=== PATIENT | female | born 1995 | race Caucasian/White ===

== ENCOUNTER 2017-07-28 03:30 | Inpatient (IN) | payer MEDICARE, MEDICAID ==
[2017-07-28 04:15] LABS: #Basophils 0.1 thou/uL (0.0-0.2); #Eosinphils 0.1 thou/uL (0.0-0.7); #Lymphocytes 2.4 thou/uL (1.20-3.40); #Monocytes 0.6 thou/uL (0.11-0.59); #Neutrophils 10.9 thou/uL (1.40-6.50); %Basophils 0.4 % (0.0-1.0); %Eosinophils 0.7 % (0.0-10.0); %Lymphocytes 17.1 % (21.0-51.0); %Monocytes 4.1 % (0.0-10.0); %Neutrophils 77.8 % (42.0-75.0); Hemoglobin 13.4 g/dL (12.0-16.0); Mean Corpuscular HGB CONC 33.7 g/dL (32.0-36.0); Mean Corpuscular Hemoglobin 30.2 pg (27.0-31.0); Mean Corpuscular Volume 89.6 fl (81.0-99.0); Mean Platelet Volume 6.4 fL (7.4-10.4); Platelet Count 388 thou/uL (130-400); RBC Distribution Width 11.7 % (11.5-14.5); Red Blood Cell (RBC) Count 4.44 mill/uL (4.20-5.40)
[2017-07-28 04:28] LABS: BHCG - Serum Negative (NEGATIVE); Pregs Control Bar Appear? YES (CONTROL BAR)
[2017-07-28 04:29] LABS: Pregs Control Background? CLEAR/WHITE (CLR/WHITE)
[2017-07-28 04:32] LABS: ALT (SGPT) 32 U/L (8-55); AST (SGOT) 82 U/L (5-34); Alkaline Phosphatase 106 U/L (40-150); Anion Gap 17 mmol/L (10-20); BUN (Urea Nitrogen) 10 mg/dL (7.0-18.7); Bilirubin, Total 2.2 mg/dL (0.2-1.2); Calc. Creatinine Clearance 0 mL/min (70-130); Calcium 9.7 mg/dL (7.8-10.44); Carbon Dioxide 21 mmol/L (22-29); Chloride 103 mmol/L (98-107); Estimated GFR-MDRD Greater than 90; Globulin 3.1 g/dL (2.4-3.5); Glucose 180 mg/dL (70-105); Protein, Total 7.1 g/dL (6.0-8.3); Sodium 137 mmol/L (136-145)
[2017-07-28] MEDS ORDERED: Lorazepam 2 MG/ML VIAL ONE ×2 (04:44→05:06)
[2017-07-28 04:46] LABS: Bilirubin Small (Negative); Blood, Urine Negative (Negative); Clarity CLOUDY (Clear); Glucose, Urine (Dipstick) Negative (Negative); Leukocyte Moderate (Negative); Nitrite Positive (Negative); Protein, Urine (Dipstick) 30 mg/dL (Neg-Trace); Specific Gravity, Urine 1.034 (1.002-1.036); pH, Urine 6.5 (5.0-9.0)
[2017-07-28 04:49] LABS: Bacteria/HPF 4+ HPF (None Seen)
[2017-07-28 04:56] LABS: Amphetamine Detected (NotDetected); Cocaine Metabolite Screen Not Detected (NotDetected); Medtox Reader # READER 4; Methamphetamine Detected (NotDetected); Opiate Screen Not Detected (NotDetected); Phencyclidine (PCP) Not Detected (NotDetected); THC/Cannabinoid Screen Detected (NotDetected)
[2017-07-28 04:57] LABS: Barbiturates Screen Not Detected (NotDetected); Benzodiazepine Screen Not Detected (NotDetected); Medtox Control Line Valid? VALID (VALID); Methadone Not Detected (NotDetected); Oxycodone Screen Not Detected (NotDetected); Tricyclic Screen Not Detected (NotDetected)
[2017-07-28 05:02] LABS: Hyaline Casts/LPF 0-3 HYALINE CAST LPF (0-3 Hyaline); Other Casts/LPF None Seen LPF (0-3 Hyaline); Oval Fat Bodies/HPF None Seen HPF (None Seen); Renal Epithelial 0-3 HPF (0-3); Sperm/HPF None Seen HPF (None Seen); Transitional Epithelial 0-3 HPF (0-3); Trichomonas/HPF None Seen HPF (None Seen); Yeast-All Forms None Seen HPF (None Seen)
[2017-07-28] MEDS ORDERED: Meropenem 1 GM in Syringe 20 ML SLOW IVP SCH (05:45)
[2017-07-28] MEDS ORDERED: Ondansetron ODT 4 MG TAB SL PRN (07:34)
[2017-07-28] MEDS ORDERED: Ondansetron HCl/PF 4 MG/2 ML Vial IVP PRN ×2 (07:34→16:40)
[2017-07-28 07:57] VITALS: BMI 19.2
[2017-07-28 08:37] LABS: ALT (SGPT) 31 U/L (8-55); AST (SGOT) 82 U/L (5-34); Albumin 3.9 g/dL (3.5-5.0); Alkaline Phosphatase 102 U/L (40-150); Bilirubin, Direct 1.2 mg/dL (0.1-0.3); Bilirubin, Total 2.1 mg/dL (0.2-1.2); Protein, Total 7.2 g/dL (6.0-8.3)
[2017-07-28] MEDS: Sodium Chloride 0.9% 1,000 ML IV SCH ×3 (08:59→15:43)
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
--- NOTE | 2017-07-28 09:39 | ULT ---
PRELIMINARY REPORT/[facility]/EMERGENCY AFTER HOURS PROCEDURE: EXAM: US Abdomen Limited, Right Upper Quadrant CLINICAL HISTORY: The patient is a 22 years old, female; Abnormal findings; Abnormal lab test; Elevated liver enzymes TECHNIQUE: Real-time ultrasound of the right upper quadrant with image documentation. COMPARISON: CT Abdomen Pelvis W Con 2017-07-28 04:46 FINDINGS: LIVER: Obstructive cholangiopathy is present. The intrahepatic and extrahepatic ducts are distended w ith the common bile duct measuring up to 10 mm in diameter. GALLBLADDER: Cholelithiasis is present. The gallbladder wall is thickened measuring 5 mm and a small amount of pericholecystic fluid is present suggestive of acute cholecystitis. The gallbladder is dist ended. The Beasley's sign could not be assessed as the patient was somewhat uncooperative, possibly se condary to medication. COMMON BILE DUCT: The pancreas appears normal with the common bile duct in the head of the pancreas n oted to be dilated. PANCREAS: See above. RIGHT KIDNEY: The right kidney is within normal limits, measuring 9.6 x 4.0 x 4.8 cm in size. No ston es. No hydronephrosis. IMPRESSION: 1. Cholelithiasis with acute cholecystitis. 2. Obstructive cholangiopathy is present. The intrahepatic and extrahepatic ducts are distended with the common bile duct measuring up to 10 mm in diameter. I would recommend an MRCP to assess for poss ible choledocholithiasis as a cause of the obstruction. 3. The pancreas appears normal with the common bile duct in the head of the pancreas noted to be dila arianna. Thank you for allowing us to participate in the care of your patient. Dictated and Authenticated by: Barber Loera MD 07/28/2017 6:23 AM Central Time ([place] & [place]) FINAL REPORT EMERGENCY AFTER HOURS RIGHT UPPER QUADRANT ULTRASOUND: Date: 07/28/17 HISTORY: Right upper quadrant abdominal pain. Elevated liver function tests. IMPRESSION: 1. Gallbladder distention with cholelithiasis and gallbladder wall thickening measuring 0.5 cm with area of either pericholecystic fluid or gallbladder wall edema. Findings are worrisome for acute chol ecystitis. Clinical correlation is recommended. 2. Intra and extrahepatic biliary ductal dilatation. The extrahepatic common duct measures 10.0 mm i n diameter. Exact etiology for biliary ductal dilatation is unable to be determined based on this exa m. 3. A Beasley's sign was unable to be assessed as the patient was unable to verbally communicate disco mfort. Findings are in agreement with the preliminary report by Winter. POS: ISELA
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
[2017-07-28] MEDS ORDERED: Lorazepam 2 MG/ML VIAL SLOW IVP PRN ×2 (11:13→21:34)
[2017-07-28] MEDS ORDERED: FLU VACC QS2017-18 36 mo. & older 0.5 ML SYRINGE IM ONE (12:00)
--- NOTE | 2017-07-28 14:40 | PDOC.PN ---
- Subjective Encounter Start Date: 07/28/17 Encounter Start Time: 09:10 Pt seen for management of medical comorbidities including paraplegia. She is sound asleep, waking up to touch but sleeping off soon thereafter, not speaking. Unable to complete ROS. - Objective MAR Reviewed: Yes Vital Signs & Weight: Vital Signs (12 hours) Temp Pulse Resp BP Pulse Ox 07/28/17 11:30 98.4 F 77 16 120/84 98 07/28/17 08:00 97.4 F L 65 18 Result Diagrams: 07/28/17 04:03 07/28/17 04:03 Phys Exam - Physical Examination Constitutional: NAD HEENT: moist MMs Scleral icterus Respiratory: no wheezing, no rales, no rhonchi, clear to auscultation bilateral Cardiovascular: RRR RUQ tenderness paraplegia Deviation from normal: Unable to assess affect or orientation Dx/Plan (1) Paraplegia following spinal cord injury Code(s): G82.20 - PARAPLEGIA, UNSPECIFIED Status: Chronic (2) Depression Code(s): F32.9 - MAJOR DEPRESSIVE DISORDER, SINGLE EPISODE, UNSPECIFIED Status : Chronic (3) Anxiety Code(s): F41.9 - ANXIETY DISORDER, UNSPECIFIED Status: Chronic - Plan * . Continue home medications once clarified. Pt admitted for acute cholecystitis and abnormal LFTs. Await GI service input. Continue antibiotics, repeat LFTs. Review of Systems - Medications/Allergies Allergies/Adverse Reactions: Allergies Allergy/AdvReac Type Severity Reaction Status Date / Time Penicillins Allergy Unknown Verified 07/28/17 08:01 Medications: Current Medications Meropenem 1 gm/ Sterile Water 20 mls @ 240 mls/hr SLOW IVP 0600,1800 JOSH Stop: 07/28/17 18:01 Sodium Chloride (Normal Saline 0.9%) 1,000 mls @ 150 mls/hr IV .Q6H40M JOSH Stop: 07/28/17 18:00 Last Admin: 07/28/17 08:59 Dose: 1,000 mls Lorazepam (Ativan) 1 mg SLOW IVP Q4H PRN PRN Reason: Anxiety/Agitation Ondansetron HCl (Zofran) 4 mg IVP Q6H PRN PRN Reason: Nausea/Vomiting Stop: 07/28/17 18:00 Ondansetron HCl (Zofran Odt) 4 mg SL Q6H PRN PRN Reason: Nausea/Vomiting Stop: 07/28/17 18:00 Sodium Chloride (Flush - Normal Saline) 10 ml IVF PRN PRN PRN Reason: Saline Flush Stop: 07/28/17 18:00
[2017-07-28] MEDS ORDERED: ISOVUE-370 76%-LOCM 1 ML ONE (16:44)
[2017-07-28] MEDS ORDERED: Meropenem 1 GM in Sterile Water 20 ML SLOW IVP SCH (18:00)
[2017-07-28] MEDS: Meropenem 2 GM, Admixture Fee 1 EACH in Sodium Chloride 0.9% 100 ML IVPB SCH (18:27)
--- NOTE | 2017-07-28 21:43 | PDOC.PN ---
- Subjective Encounter Start Date: 07/28/17 Encounter Start Time: 12:00 Patient seen and examined. Somnolent. No overnight events - Objective MAR Reviewed: Yes Vital Signs & Weight: Vital Signs (12 hours) Temp Pulse Resp BP Pulse Ox 07/28/17 20:00 99.2 F 95 20 119/66 99 07/28/17 15:35 98.8 F 91 20 109/67 97 07/28/17 11:30 98.4 F 77 16 120/84 98 Weight Admit Weight 115 lb Weight 115 lb 6.4 oz I&O: 07/27/17 07/28/17 07/29/17 06:59 06:59 06:59 Intake Total 1800 Output Total 50 Balance 1750 Result Diagrams: 07/29/17 04:06 07/28/17 04:03 Phys Exam - Physical Examination Constitutional: NAD Respiratory: no wheezing, no rhonchi Cardiovascular: RRR, no rub Gastrointestinal: soft, non-tender, positive bowel sounds Musculoskeletal: no edema Neuro/Psych - Cannot assess due to current mentation. Dx/Plan - Plan DVT proph w/SCDs IMPRESSION: 1. Anxiety/Depression 2. Abn LFTS - mngt per Surg 3. Encephalopathy - baseline mentation unknown 4. Cannabis abuse 5. UTI PLAN: * Add low dose Ativan PRN for agitation * Will try to obtain more information from family when they arrive * AM labs * Await urine cultures Review of Systems - Review of Systems Other: Cannot obtain due to current cognition. Baseline mentation unknown. - Medications/Allergies Allergies/Adverse Reactions: Allergies Allergy/AdvReac Type Severity Reaction Status Date / Time Penicillins Allergy Unknown Verified 07/28/17 08:01 Medications: Current Medications Meropenem 2 gm/ Miscellaneous Medication 1 each/ Sodium Chloride 100 mls @ 0 mls/hr IVPB 0200,1000,1800 JOSH Last Admin: 07/28/17 18:27 Dose: 100 mls Lorazepam (Ativan) 0.5 mg SLOW IVP Q6H PRN PRN Reason: Anxiety/Agitation Ondansetron HCl (Zofran) 4 mg IVP Q6H PRN PRN Reason: Nausea/Vomiting Last Admin: 07/28/17 18:30 Dose: 4 mg Sodium Chloride (Flush - Normal Saline) 10 ml IVF Q12HR JOSH Sodium Chloride (Flush - Normal Saline) 10 ml IVF PRN PRN PRN Reason: Saline Flush
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
[2017-07-29] MEDS: Meropenem 2 GM, Admixture Fee 1 EACH in Sodium Chloride 0.9% 100 ML IVPB SCH ×2 (02:52→10:33)
[2017-07-29 04:48] LABS: #Eosinphils 0.1 thou/uL (0.0-0.7); #Monocytes 0.5 thou/uL (0.11-0.59); #Neutrophils 6.6 thou/uL (1.40-6.50); %Basophils 0.4 % (0.0-1.0); %Eosinophils 1.6 % (0.0-10.0); %Lymphocytes 21.7 % (21.0-51.0); %Monocytes 5.5 % (0.0-10.0); %Neutrophils 70.7 % (42.0-75.0); Hemoglobin 11.3 g/dL (12.0-16.0); Mean Corpuscular HGB CONC 33.5 g/dL (32.0-36.0); Mean Corpuscular Hemoglobin 30.7 pg (27.0-31.0); Mean Corpuscular Volume 91.6 fl (81.0-99.0); Mean Platelet Volume 6.5 fL (7.4-10.4); Platelet Count 266 thou/uL (130-400); Red Blood Cell (RBC) Count 3.68 mill/uL (4.20-5.40); White Blood Cell (WBC) Count 9.3 thou/uL (4.8-10.8)
[2017-07-29 05:10] LABS: ALT (SGPT) 70 U/L (8-55); AST (SGOT) 95 U/L (5-34); Albumin 2.8 g/dL (3.5-5.0); Alkaline Phosphatase 126 U/L (40-150); Bilirubin, Direct 2.3 mg/dL (0.1-0.3); Protein, Total 4.9 g/dL (6.0-8.3)
[2017-07-29] MEDS ORDERED: D5 1/2 NS w/20 mEq KCL 1,000 ML IV SCH (08:45)
[2017-07-29] MEDS ORDERED: Sodium Chloride 0.9% 1,000 ML IV SCH (08:45)
[2017-07-29] MEDS ORDERED: Dextrose 5 %-0.45 % NaCl 1,000 ML IV SCH (08:45)
--- NOTE | 2017-07-29 12:36 | PRG ---
DATE OF SERVICE: 07/29/2017 This is a followup consultation for medical issues. SUBJECTIVE: The patient is seen and examined at the bedside. She is not very cooperative and she wa nts to go home. She cries and she does not complaining of any pain. She behaves like she does not r eally wanted to talk to me. OBJECTIVE: VITAL SIGNS: Blood pressure is 120/66, pulse is 105, temperature is 99.0, respiratory rate is 14, an d O2 saturation is 96% on room air. HEENT: Eyes: Pupils approximately 3 mm and is responding to light properly. Sclerae are nonicteric . Oral mucosa is moist. NECK: Supple. LUNGS: Clear. HEART: S1, S2, tachycardic. No S3, no S4. ABDOMEN: Soft, nontender, bowel sounds are present, no organomegaly. EXTREMITIES: No clubbing, cyanosis or edema. There is an ulceration of the left calf approximately 2 inches x 1, which is just dressed by the Wound Care. NEUROLOGIC: She follows my commands on and off. She is paraplegic both lower extremities. LABORATORY DATA: Showed white count of 9.3, hemoglobin 11.3, hematocrit 33.8, and platelet count 266 . Total bilirubin 3.0, direct 2.3. AST 95, ALT 70, alkaline phosphatase 126, serum total protein 4. 9 and albumin 2.8. MICROBIOLOGY: None. IMPRESSION AND PLAN: 1. Abnormal LFTs with possible gallstones. The patient was seen by Dr. Aggarwal for GI evaluation. He recommend to do laparoscopic cholecystectomy and cholangiogram for possible gallstones and some form of cholecystitis, but this decision would be made by Dr. Hutchinson, her admitting general surgeon. 2. Depression/anxiety. 3. Encephalopathy. The patient behaves like she does not really wants to talk to me because of her depression and she wants to go home. She is positive for several illicit drugs, which could be the p art of the picture. This should be getting better with time. We will try to obtain more information about her mental baseline from the family and further recommendation from GI/GS regarding her GI iss ue. Continue current regimen and continue IV antibiotic for which looks like it is urinary tract inf ection, but her white count is back to normal and she seems to be responding.
[2017-07-29 16:57] VITALS: BP 107/65; TEMP 98.5
--- NOTE | 2017-07-29 17:16 | PRG ---
DATE OF SERVICE: 07/29/2017 SUBJECTIVE: This is a 22-year-old female brought to the ER by the family because of altere d mental status and also some vague abdominal pain. The patient has remained very sleepy and letharg ic over the last couple of days. She does off and on, but she is actually very restless and ag itated. The abdominal sonogram and CAT scan does show dilation of the CBD and intrahepatic bile duct s. Her liver function tests are elevated. Sonogram does show a gallstone. It appears that the pavel ent has possibly a common bile duct stone. Unfortunately, there is no family available to get a cons ent for ERCP and possible laparoscopic cholecystectomy. OBJECTIVE: GENERAL: She is very sleepy, barely arousable. VITAL SIGNS: Temperature 99 degrees Fahrenheit, pulse is 105, blood pressure is 120/66. CHEST: Lungs within normal limits. ABDOMEN: Soft, abdomen is nondistended, abdomen is nontender. LABORATORY DATA: From today shows WBC 9300, hemoglobin 11.3, hematocrit 33.8, MCV 91.6, platelet cou nt 266,000. Chemistry panel shows bilirubin gone up to 3. AST is 95, ALT 70, alkaline phosphatase 1 26. CLINICAL IMPRESSION: Cholecystitis, abnormal liver function tests, possibility of common bile duct s tone. We will try to contact the family to see if somebody can find the . If can be obta ined, I will plan for the ERCP tomorrow.
== END 2017-07-29 15:50 | disposition left against medical advice (07) | DRG 444 ==
LOC: ERS 03:30 → SURG B 07:15
PROVIDERS: ADMIT Surgery; ATTEND Surgery
DX: K80.00 Calculus of gallbladder with acute cholecystitis without obstruction (principal); G93.40 Encephalopathy, unspecified; G82.20 Paraplegia, unspecified; L97.229 Non-pressure chronic ulcer of left calf with unspecified severity; N39.0 Urinary tract infection, site not specified; F17.210 Nicotine dependence, cigarettes, uncomplicated; F19.10 Other psychoactive substance abuse, uncomplicated; T14.8XXS Other injury of unspecified body region, sequela; F41.9 Anxiety disorder, unspecified; F32.9 Major depressive disorder, single episode, unspecified; Z53.21 Procedure and treatment not carried out due to patient leaving prior to being seen by health care provider
CPT/HCPCS: 36415; 51701; 74177; 76705; 80053; 80076; 80306; 81003; 81015; 83690; 84703; 85025; 87077; 87086; 87186; 93005; 93010; 94760; 96361; 96374; 96375; A4216; A4353; J2060; J2185; J2405; J7050

== ENCOUNTER 2017-07-30 22:14 | Emergency (ER) | payer MEDICARE, MEDICAID | END 2017-07-30 23:26 | disposition left against medical advice (07) | LOC: ERS 22:14 | DX: Z53.21 Procedure and treatment not carried out due to patient leaving prior to being seen by health care provider (principal) ==

== ENCOUNTER 2017-08-17 14:58 | Inpatient (IN) | payer MEDICARE, MEDICAID ==
[2017-08-17] MEDS ORDERED: Ondansetron HCl/PF 4 MG/2 ML Vial ONE ×2 (15:27→15:28)
[2017-08-17 15:31] LABS: #Basophils 0.1 thou/uL (0.0-0.2); #Lymphocytes 1.7 thou/uL (1.20-3.40); #Monocytes 0.6 thou/uL (0.11-0.59); #Neutrophils 15.8 thou/uL (1.40-6.50); %Basophils 0.6 % (0.0-1.0); %Eosinophils 0.1 % (0.0-10.0); %Lymphocytes 9.1 % (21.0-51.0); %Monocytes 3.5 % (0.0-10.0); %Neutrophils 86.7 % (42.0-75.0); Hemoglobin 13.3 g/dL (12.0-16.0); Mean Corpuscular HGB CONC 32.5 g/dL (32.0-36.0); Mean Corpuscular Hemoglobin 29.7 pg (27.0-31.0); Mean Corpuscular Volume 91.4 fl (81.0-99.0); Mean Platelet Volume 5.8 fL (7.4-10.4); Platelet Count 478 thou/uL (130-400); RBC Distribution Width 11.9 % (11.5-14.5); Red Blood Cell (RBC) Count 4.47 mill/uL (4.20-5.40); White Blood Cell (WBC) Count 18.2 thou/uL (4.8-10.8)
[2017-08-17 15:58] LABS: Bilirubin Small (Negative); Blood, Urine Negative (Negative); Clarity CLOUDY (Clear); Glucose, Urine (Dipstick) Negative (Negative); Leukocyte Small (Negative); Nitrite Positive (Negative); Protein, Urine (Dipstick) 30 mg/dL (Neg-Trace); Specific Gravity, Urine 1.031 (1.002-1.036)
[2017-08-17 16:00] LABS: Bacteria/HPF 4+ HPF (None Seen); RBC/HPF 0-3 HPF (0-3)
[2017-08-17 16:02] LABS: Pathc Cast-AUWi Flag 3.11 (0-2.49)
[2017-08-17 16:02] LABS: ALT (SGPT) 17 U/L (8-55); AST (SGOT) 49 U/L (5-34); Albumin 3.6 g/dL (3.5-5.0); Alkaline Phosphatase 100 U/L (40-150); Anion Gap 13 mmol/L (10-20); BUN (Urea Nitrogen) 12 mg/dL (7.0-18.7); Bilirubin, Total 0.9 mg/dL (0.2-1.2); Calc. Creatinine Clearance 0 mL/min (70-130); Calcium 9.4 mg/dL (7.8-10.44); Carbon Dioxide 23 mmol/L (22-29); Chloride 108 mmol/L (98-107); Estimated GFR-MDRD Greater than 90; Globulin 3.6 g/dL (2.4-3.5); Glucose 154 mg/dL (70-105); Lipase 14 U/L (8-78); Potassium 4.1 mmol/L (3.5-5.1); Protein, Total 7.2 g/dL (6.0-8.3); Sodium 140 mmol/L (136-145)
[2017-08-17 16:05] LABS: Acetaminophen Less than 6.0 mcg/mL (10.0-30.0); Alcohol Less than 10 mg/dL (Less than 10); Salicylate Less than 8.0 mg/dL (15.0-30.0)
[2017-08-17] MEDS ORDERED: Lorazepam 2 MG/ML VIAL ONE (16:13)
[2017-08-17 16:14] LABS: Cocaine Metabolite Screen Not Detected (NotDetected); Medtox Reader # READER 1; Methamphetamine Detected (NotDetected); Opiate Screen Not Detected (NotDetected); Phencyclidine (PCP) Not Detected (NotDetected); THC/Cannabinoid Screen Not Detected (NotDetected)
[2017-08-17 16:15] LABS: Amphetamine Detected (NotDetected); Barbiturates Screen Not Detected (NotDetected); Benzodiazepine Screen Not Detected (NotDetected); Medtox Control Line Valid? VALID (VALID); Methadone Not Detected (NotDetected); Oxycodone Screen Not Detected (NotDetected); Tricyclic Screen Not Detected (NotDetected)
[2017-08-17 16:18] LABS: Hyaline Casts/LPF 0-3 HYALINE CAST LPF (0-3 Hyaline); Manual Microscopic Reviewed? No Path Casts Seen; Renal Epithelial None Seen HPF (0-3); Transitional Epithelial NONE SEEN HPF (0-3)
[2017-08-17] MEDS ORDERED: Meropenem 1 GM in Sterile Water 20 ML SLOW IVP SCH (16:45)
--- NOTE | 2017-08-17 16:59 | RAD ---
FRONTAL VIEW ABDOMEN 08/17/17 INDICATION: Pain. FINDINGS: There is limited evaluation as patient is rotated. There is paucity of bowel gas. Imaged lower lung z ones reveal no consolidation. Mild blunting of the costophrenic sulci present. Partially imaged spina l hardware. There is focal deformity involving the lower right thoracic spinal screw which could rela te to a fractured screw, incompletely assessed by the single view. There is also potential lucency ab out the inferior most right pedicle screw. IMPRESSION: 1. Paucity of bowel gas. There is a moderate degree of retained fecal material notably at the lo wer aspect of the colon. Correlate for evidence of constipation. 2. Abnormal spinal hardware as discussed above. Recommend dedicated views of the thoracic spine. POS: QUYNH
--- NOTE | 2017-08-17 17:46 | ULT ---
GALLBLADDER ULTRASOUND 08/17/17 INDICATION: Abdominal pain, nausea, vomiting. FINDINGS: No focal hepatic lesion. There is evidence of cholelithiasis. Gallbladder wall is borderline at 3 mm. Imaged common duct is prominent measuring 8 to 9 mm. There is increased echogenicity of the extrahep atic biliary ductal system approximating the region of the proximal pancreas. This does indicate chol edocholithiasis. Minimal degree of pericholecystic edema is suggested. Beasley's sign is reported as p ositive. IMPRESSION: 1. Cholelithiasis. 2. Evidence of choledocholithiasis and biliary obstruction. 3. Mild wall thickening and pericholecystic edema indicating acute cholecystitis in the correct clinical context. Recommend surgical consultation. POS: ISELA
--- NOTE | 2017-08-17 18:08 | PDOC.EVN ---
Event Note - Event Note Event Note: [id number] H&P DICTATED 1. bILATERAL LEG WOUNDS, CELLULITIS 2. sirs 3. UTI Plan: see orders
[2017-08-17] MEDS ORDERED: Ondansetron HCl/PF 4 MG/2 ML Vial IVP PRN (18:10)
[2017-08-17] MEDS ORDERED: HYDROcodone/Acetaminophen 5/325 mg Tablet PO PRN (18:10)
[2017-08-17] MEDS ORDERED: Acetaminophen 325 MG TAB PO PRN (18:10)
[2017-08-17] MEDS: Sodium Chloride 0.9% 1,000 ML IV SCH ×2 (21:42)
[2017-08-17] MEDS: Heparin 5,000 UNITS/ML VIAL SC SCH (21:44)
[2017-08-17] MEDS ORDERED: Meropenem 1 GM in Sodium Chloride 0.9% 100 ML IVPB SCH (22:00)
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
[2017-08-18] MEDS ORDERED: Meropenem 1 GM in Sterile Water 20 ML SLOW IVP SCH (02:00)
[2017-08-18] MEDS: Vancomycin HCl 1.5 GM in Sodium Chloride 0.9% 250 ML 300 ML IVPB SCH ×2 (04:56→18:04)
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
[2017-08-18] MEDS ORDERED: PHENYLEPHRINE-NS 100 MCG/ML 10 ML SYRINGE ONE (07:12)
[2017-08-18] MEDS: Meropenem 1 GM in Sterile Water 20 ML SLOW IVP SCH ×2 (09:34→21:59)
[2017-08-18] MEDS: Baclofen 10 MG TAB PO SCH (09:47)
[2017-08-18] MEDS: Heparin 5,000 UNITS/ML VIAL SC SCH ×3 (09:47→22:01)
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
--- NOTE | 2017-08-18 12:39 | PDOC.PN ---
- Subjective Encounter Start Date: 08/18/17 Encounter Start Time: 12:37 Subjective: Seen and examined-a little bit uncoperative and refusing treatment -: unfortunately cannot make her own decision due to her mental state -: and the fact she is under the influence of methamphetamine - Objective Vital Signs & Weight: Vital Signs (12 hours) Temp Pulse Resp BP BP Pulse Ox 08/18/17 11:53 99.5 F 82 16 116/59 L 93 L 08/18/17 08:45 98.6 F 57 L 16 95 08/18/17 08:43 98.6 F 57 L 16 108/68 95 08/18/17 04:49 99.3 F 58 L 18 126/72 99 Weight Admit Weight 111 lb 12.8 oz Weight 111 lb 12.8 oz I&O: 08/17/17 08/18/17 08/19/17 06:59 06:59 06:59 Intake Total 580 Output Total 150 Balance 430 Result Diagrams: 08/17/17 15:23 08/17/17 15:23 Phys Exam - Physical Examination Constitutional: NAD HEENT: PERRLA, moist MMs, sclera anicteric, TM's clear Neck: no nodes, no JVD, supple, full ROM Respiratory: no wheezing, no rales, no rhonchi Cardiovascular: RRR, no significant murmur, no rub Gastrointestinal: positive bowel sounds Musculoskeletal: no edema, pulses present Dx/Plan (1) Cholecystitis Code(s): K81.9 - CHOLECYSTITIS, UNSPECIFIED Status: Acute (2) UTI (lower urinary tract infection) Code(s): N39.0 - URINARY TRACT INFECTION, SITE NOT SPECIFIED Status: Acute (3) Anxiety Code(s): F41.9 - ANXIETY DISORDER, UNSPECIFIED Status: Chronic (4) Depression Code(s): F32.9 - MAJOR DEPRESSIVE DISORDER, SINGLE EPISODE, UNSPECIFIED Status : Chronic (5) Paraplegia following spinal cord injury Code(s): G82.20 - PARAPLEGIA, UNSPECIFIED Status: Chronic - Plan continue antibiotics, PT/OT, social worker clinical, DVT proph w/heparin Not sure if this pt is consentable for any kind of surgery-she doesnt want -: us to talk to her family -: Change IVF to Dextrose -saline -: Transfer to critical care for better sedation * .
[2017-08-18] MEDS: Sodium Chloride 0.9% 1,000 ML IV SCH (12:54)
[2017-08-18] MEDS: Dextrose 5 % And 0.9 % NaCl 1,000 ML IV SCH ×2 (12:59→13:29)
[2017-08-18] MEDS ORDERED: Ziprasidone 20 MG VIAL IM PRN ×2 (13:06→13:43)
[2017-08-18] MEDS ORDERED: Sterile Water 10 ML ONE (13:14)
[2017-08-18] MEDS ORDERED: Sterile Water 10 ML VIAL FS PRN (13:49)
[2017-08-18] MEDS ORDERED: Midazolam HCl 2 mg/2 ml Vial ONE (14:35)
[2017-08-18] MEDS ORDERED: Propofol 1,000 MG/100 ML VIAL IV ONE (14:56)
[2017-08-18] MEDS ORDERED: Lacri-Lube Opth Oint 3.5 GM TUBE EA EYE PRN (15:11)
[2017-08-18] MEDS ORDERED: Sedation Protocol FS ONE (15:11)
[2017-08-18] MEDS ORDERED: Midazolam HCl 2 mg/2 ml Vial SLOW IVP SCH (15:15)
[2017-08-18] MEDS ORDERED: DISCONTINUE PREVIOUS NARCOTIC PAIN MEDICATIONS AND BENZODIAZEPINES FS SCH (15:30)
[2017-08-18] MEDS ORDERED: Morphine 2 MG/ML SYRINGE SLOW IVP PRN (15:30)
[2017-08-18] MEDS ORDERED: fentaNYL Citrate/PF 2,000 MCG in Sodium Chloride 0.9% 60 ML IV SCH (15:30)
--- NOTE | 2017-08-18 15:51 | RAD ---
PORTABLE AP CHEST XRAY: DATE: 08/18/17. HISTORY: Nausea and vomiting. COMPARISON: 01/25/17. FINDINGS: Endotracheal tube is noted in place with the tip overlying the T4 vertebral body and above the level of the prema. The patient is rotated to the right, but the cardiac silhouette and pulmonary vascula ture are within normal limits. The lungs are clear. Postsurgical changes related to posterior fusio n of the thoracolumbar junction are seen but incompletely imaged. Visualized postsurgical changes ar e unchanged compared to the prior exam. IMPRESSION: 1. Endotracheal tube noted in place which is above the level of the prema. 2. No acute cardiopulmonary process. POS: [facility]
[2017-08-18 15:55] LABS: Actual Bicarbonate (HCO3a) 23.3 mEq/L (22-26); Base Excess (BEa) 0.9 mEq/L (0 (+/-) 2.5); CO2 Tension 29.4 mmHg (35.0-45.0); Hematocrit-ABG 30.6 % (36.0-47.0); O2 Tension (PaO2) 119.2 mmHg (80.0-100.0); pH, Arterial 7.52 (7.35-7.45)
[2017-08-18 15:56] LABS: Calcium, Ionized 1.2 mmol/L (1.12-1.30); Hemoglobin (Hb) 10.2 g/dL (12.0-16.0); Puncture Site RRA
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
[2017-08-18] MEDS ORDERED: Iothalamate Meglumine 60% 50 ML VIAL FS ONE ×2 (16:39→18:18)
[2017-08-18] MEDS ORDERED: Bupivacaine/Epinephrine 0.25% 30 ML VIAL ONE (16:39)
[2017-08-18 16:50] LABS: #Basophils 0.1 thou/uL (0.0-0.2); #Eosinphils 0.1 thou/uL (0.0-0.7); #Lymphocytes 2.5 thou/uL (1.20-3.40); #Monocytes 0.5 thou/uL (0.11-0.59); %Basophils 0.9 % (0.0-1.0); %Eosinophils 1.4 % (0.0-10.0); %Monocytes 6.6 % (0.0-10.0); %Neutrophils 61.2 % (42.0-75.0); Mean Corpuscular HGB CONC 32.2 g/dL (32.0-36.0); Mean Corpuscular Hemoglobin 30.1 pg (27.0-31.0); Mean Corpuscular Volume 93.4 fl (81.0-99.0); Mean Platelet Volume 5.8 fL (7.4-10.4); Platelet Count 416 thou/uL (130-400); Red Blood Cell (RBC) Count 3.98 mill/uL (4.20-5.40); White Blood Cell (WBC) Count 8.2 thou/uL (4.8-10.8)
[2017-08-18 17:13] LABS: ALT (SGPT) 16 U/L (8-55); AST (SGOT) 22 U/L (5-34); Albumin 3.3 g/dL (3.5-5.0); Alkaline Phosphatase 90 U/L (40-150); Anion Gap 13 mmol/L (10-20); BUN (Urea Nitrogen) 5 mg/dL (7.0-18.7); Bilirubin, Total 0.9 mg/dL (0.2-1.2); Calc. Creatinine Clearance 120 mL/min (70-130); Calcium 9.1 mg/dL (7.8-10.44); Carbon Dioxide 19 mmol/L (22-29); Chloride 109 mmol/L (98-107); Estimated GFR-MDRD Greater than 90; Globulin 3.2 g/dL (2.4-3.5); Glucose 109 mg/dL (70-105); Lipase 15 U/L (8-78); Potassium 3.1 mmol/L (3.5-5.1); Protein, Total 6.5 g/dL (6.0-8.3); Sodium 138 mmol/L (136-145)
[2017-08-18] MEDS ORDERED: Midazolam HCl 5 mg/5 ml Vial ONE (17:19)
[2017-08-18] MEDS ORDERED: Levofloxacin 500 mg/D5W 100 ml Premix Bag ONE (17:51)
--- NOTE | 2017-08-18 20:27 | RAD ---
ERCP 08/18/17 HISTORY: Choledocholithiasis and intrahepatic and extrahepatic biliary ductal dilatation noted on intraoperati ve cholangiogram. FINDINGS/IMPRESSION: Three fluoroscopic images from ERCP are submitted for interpretation. Freezer Unloader image demonstrates residu al contrast within the common duct with a small amount of contrast within the small bowel. Subsequent images demonstrate guide wire in place within the common duct and the intrahepatic duct with final i mage demonstrating a balloon catheter within the most proximal common duct. Additional images with fr ee spill of contrast in duodenum are not provided with this exam. Surgical clips overlie the right up per quadrant. Correlation with intraoperative findings is recommended. POS: [facility]
--- NOTE | 2017-08-18 20:40 | RAD ---
INTRAOPERATIVE CHOLANGIOGRAM 08/18/17 HISTORY: Cholelithiasis and choledocholithiasis. FINDINGS: Single intraoperative fluoroscopic images from an intraoperative cholangiogram is submitted for inter pretation. Surgical instruments overlie the right upper quadrant. The cystic duct is cannulated. Ther e is intra and extrahepatic biliary ductal dilatation on the provided image. There is a filling defec t within the distal common duct which likely is related to a calculus within the common duct. No imag es demonstrate free spill of contrast into the duodenum are provided. There are posterior rods and pe dicular screws transfixing the thoracic spine. IMPRESSION: Intra and extrahepatic biliary ductal dilatation with filling defect in the distal common duct probab ly related to choledocholithiasis. Correlation with intraoperative findings is recommended. POS: [facility]
--- NOTE | 2017-08-18 21:21 | OP ---
PREOPERATIVE DIAGNOSES: Choledocholithiasis, possible cholangitis, cholecystectomy today with positi ve IOC. POSTOPERATIVE DIAGNOSIS: Choledocholithiasis removed. PROCEDURE PERFORMED: ERCP with sphincterotomy, removal of common bile duct stones. ANESTHESIA: General endotracheal anesthesia. Patient is already on antibiotics before being brought to the OR. PROCEDURE IN DETAIL: After the patient's family was informed of the risks, benefits and possible com plications of cholecystectomy, ERCP, consents were signed for both procedures. The patient was unabl e to sign consent as she has a history of psychiatric disorder, psychotic and sedated in the ICU. It is unclear how much of this was from her psychiatric disorder or drug use as she came in with positi ve methamphetamine screen. In the event, she has been intubated prior to going to the operating room for laparoscopic cholecystectomy in the ICU. RECOMMENDATIONS: 1. Wean to extubate as tolerated in the morning or whenever Pulmonology is ready. 2. Continue antibiotics for 24-48 hours. 3. Repeat labs in the morning. PROCEDURE IN DETAIL: After the patient was informed of the risks, benefits, possible complications o f endoscopy including perforation, bleeding, reactions to medication and aspiration, informed consent was signed by the family. The patient having undergone laparoscopic cholecystectomy with positive I OC and was transferred to the endoscopy suite. She was placed in the fluoroscopy table in prone posi tion. A side-viewing duodenoscope was placed through the bite block into the esophagus, stomach, sec ond and third portion of duodenum and the ampulla was brought into view. No bile was noted be emanat ing from the ampulla. Free cannulation was obtained. A guidewire was advanced up in the biliary vicky e. This was then used to guide for sphincterotomy. Once the sphincterotomy was completed, exchange was made for a 15 mm balloon, the duct was swept with multiple stones being removed. At the end of t his, occlusion cholangiogram was performed, which showed no further filling defects and after the bal loon was pulled through the ampulla with no stones, there was spontaneous drainage of contrast, both endoscopically and radiographically. The scope was removed. The patient was brought back to the ICU in stable condition.
[2017-08-18] MEDS: Famotidine/PF 20 mg/2ml Vial SLOW IVP SCH (21:59)
[2017-08-18] MEDS: Propofol 1,000 MG/100 ML VIAL IV PRN (22:00)
[2017-08-18] MEDS: Lorazepam 2 MG/ML VIAL SLOW IVP PRN (23:32)
--- NOTE | 2017-08-19 00:19 | OP ---
DATE OF PROCEDURE: 08/18/2017 SERVICE: Pulmonary Medicine. PROCEDURE PERFORMED: Emergent endotracheal intubation. CONSENT: Procedure was performed emergently secondary to clinical condition and respiratory failure. STAFF PHYSICIAN: Alex Urbina M.D. MEDICATIONS USED: 1. Versed 2 mg IV push. 2. Etomidate 20 mg IV push. PREOPERATIVE DIAGNOSES: 1. Acute hypoxic respiratory failure. 2. Metabolic encephalopathy. POSTPROCEDURE DIAGNOSES: 1. Acute hypoxic respiratory failure. 2. Metabolic encephalopathy. DESCRIPTION OF PROCEDURE: Vital sign monitoring was accomplished by noninvasive hemodynamic monitori ng, pulse oximetry, and telemetry. In the supine position, the patient was preoxygenated with bag valve mask ventilation and maintain wi th saturations of 100%. Following induction of anesthesia, a GlideScope was introduced through the m outh offering clear identification of the posterior oropharynx and laryngeal structures with a grade I view. A 7.5 [place] endotracheal tube was visualized passing through the vocal cords. Placement wa s confirmed by condensation in the endotracheal tube, colorimetric capnography, and bi-axillary chest auscultation. Endotracheal tube was secured at 23 cm, measured at the teeth. The patient was place d on mechanical ventilation with good return of volumes. Post-procedure x-ray demonstrated good loca tion for the endotracheal tube. ESTIMATED BLOOD LOSS: None. COMPLICATIONS: None.
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
[2017-08-19] MEDS: Dextrose 5 % And 0.9 % NaCl 1,000 ML IV SCH ×2 (02:49→16:56)
[2017-08-19] MEDS: Meropenem 1 GM in Sterile Water 20 ML SLOW IVP SCH ×3 (02:49→17:46)
[2017-08-19 04:29] LABS: Band 5 % (5-11); Eosinophils 1 % (0-10); Hemoglobin 10.8 g/dL (12.0-16.0); Lymphocytes 17 % (21-51); MDiff Complete? YES; Mean Corpuscular HGB CONC 33.4 g/dL (32.0-36.0); Mean Corpuscular Hemoglobin 30.1 pg (27.0-31.0); Mean Corpuscular Volume 90.4 fl (81.0-99.0); Mean Platelet Volume 5.8 fL (7.4-10.4); Monocytes 8 % (0-10); Neutrophil 69 % (42-75); PLT Morphology Comment Appears Adequate; Platelet Count 345 thou/uL (130-400); RBC Distribution Width 11.8 % (11.5-14.5); Red Blood Cell (RBC) Count 3.59 mill/uL (4.20-5.40); White Blood Cell (WBC) Count 7.9 thou/uL (4.8-10.8)
[2017-08-19 04:30] LABS: ALT (SGPT) 35 U/L (8-55); AST (SGOT) 85 U/L (5-34); Albumin 2.8 g/dL (3.5-5.0); Alkaline Phosphatase 100 U/L (40-150); Anion Gap 7 mmol/L (10-20); BUN (Urea Nitrogen) Less than 4 mg/dL (7.0-18.7); Bilirubin, Total 0.6 mg/dL (0.2-1.2); Calc. Creatinine Clearance 145 mL/min (70-130); Calcium 8.1 mg/dL (7.8-10.44); Carbon Dioxide 26 mmol/L (22-29); Chloride 111 mmol/L (98-107); Estimated GFR-MDRD Greater than 90; Globulin 2.4 g/dL (2.4-3.5); Glucose 120 mg/dL (70-105); Lipase 59 U/L (8-78); Protein, Total 5.2 g/dL (6.0-8.3); Sodium 141 mmol/L (136-145)
--- NOTE | 2017-08-19 04:58 | PDOC.OP ---
Operative Note - Operative Note Operative Note: PROCEDURE: Laparoscopic cholecystectomy with intraoperative cholangiogram SURGEON: Nina Garcia M.D. DATE OF PROCEDURE: 08/18/2017 PREOPERATIVE DIAGNOSIS: Cholelithiasis and cholecystitis, possible choledocholithiasis: POSTOPERATIVE DIAGNOSIS: Cholelithiasis and cholecystitis, choledocholithiasis HISTORY: Patient is a 22-year-old woman with previous admission for gallstone pancreatitis with left AMA at that time. She was readmitted for intractable abdominal pain and leukocytosis. Ultrasound revealed a stone in her common bile duct although her LFTs were not markedly elevated at the time of her admission. She was not competent to give consent due to underlying mental illness and became increasingly agitated requiring intubation and sedation. Her family was able to be contacted and give informed consent for laparoscopic cholecystectomy with intraoperative cholangiogram, with ERCP to follow if the cholangiogram was abnormal. FINDINGS: Chronically distended white walled gallbladder consistent with chronic cholecystitis. Enlarged cystic duct closed with Endoloop and clips. Obstruction of dilated common bile duct with a meniscus sign. PROCEDURE IN DETAIL: After informed consent was obtained and appropriate preoperative antibiotics were administered, the patient was taken to the operating room and placed in the supine position and general endotracheal anesthesia was administered. The stomach was decompressed with an OG tube and the abdomen was prepped and draped in standard sterile fashion. Local anesthesia was infused to the skin and subcutaneous tissues at the umbilical level. A transverse skin incision was made. The fascia was elevated and a Veress needle was placed into the abdominal cavity without difficulty. Opening pressure was less than 5 and carbon dioxide gas easily insufflated to an intra- abdominal pressure of 15, which the patient tolerated well. The Veress needle was withdrawn and a Freeland port advanced under direct vision. The abdominal cavity was carefully examined. There was no evidence of Veress needle or of trocar injury. Local anesthesia was infused to the skin and subcutaneous tissues at the epigastric, right upper quadrant, and right lateral abdominal sites and trocars were placed under direct vision of the laparoscope. The fundus of the gallbladder was grasped and retracted superiorly. The infundibulum was grasped and retracted laterally. The serosa was stripped inferiorly at the level of the neck of the gallbladder exposing the cystic duct and artery which were traced clearly to their insertion in the gallbladder. These were dissected free circumferentially and the cystic duct was clipped at the level of the neck of the gallbladder. The cystic artery was clipped but not divided. Due to the patient's known history of choledocholithiasis, glucagon was administered and allowed to circulate prior to obtaining the cholangiogram. An incision was made in the cystic duct inferior to the clip and the cystic duct was palpated with no stones palpable. Clear bile was seen to flow from the cystic duct incision. A cholangiogram catheter was introduced and placed into the cystic duct and secured with a clip. A cholangiogram was obtained which showed an adequate length of cystic duct. There was normal filling of the enlarged proximal common bile duct with no flow of contrast into the duodenum. There was normal retrograde flow into the common hepatic duct beyond the level of the bifurcation without filling defects. There was a clear meniscus at the cut off of contrast indicating an obstructing stone in the bile duct. The cholangiogram catheter was removed and the cystic duct clipped below the incision in the cystic duct. The cystic duct was divided between these clips and the previously placed clip. The clips barely reached across the cystic duct which was chronically dilated. Therefore an Endoloop was placed on beneath the clips to securely close the cystic duct. The cystic artery was divided between the previously placed clips. The gallbladder was then dissected free of the gallbladder bed using hook electrocautery. Prior to complete removal of the gallbladder from the gallbladder bed, the area of the cystic duct and artery stumps was examined. The clips were in good position completely across these structures and there was no bleeding and no leakage of bile. The gallbladder was then placed into an EndoCatch bag and drawn out through the epigastric incision. The epigastric trocar was replaced and the operative site confirmed to be hemostatic and clear. There was no significant bleeding or spillage of bile. The epigastric trocar was removed and the fascia closed under direct laparoscopic vision with a 0 Vicryl suture on a GraNee needle in a figure-of- eight manner with excellent technical result. The right upper quadrant and right lateral abdominal trocars were removed and hemostasis verified. Carbon dioxide gas was allowed to desufflate through the umbilical trocar which was then removed. Due to the patient's thin body habitus the umbilical fascia was visible and was closed with 0 Vicryl suture under direct vision with excellent technical result. The skin incisions were closed with 4-0 subcuticular Monocryl sutures and Dermabond dressings were placed. The patient was immediately taken to the endoscopy suite for postoperative ERCP in good condition. There were no complications. ESTIMATED BLOOD LOSS: Minimal. SPECIMEN : Gallbladder and contents.
[2017-08-19] MEDS: Vancomycin HCl 1.5 GM in Sodium Chloride 0.9% 250 ML 300 ML IVPB SCH (05:04)
[2017-08-19] MEDS: Propofol 1,000 MG/100 ML VIAL IV PRN (05:31)
[2017-08-19] MEDS ORDERED: Potassium Chloride 40 MEQ in Sodium Chloride 0.9% 250 ML 250 ML IVPB SCH ×5 (08:30→09:00)
[2017-08-19] MEDS: Lorazepam 2 MG/ML VIAL SLOW IVP PRN (09:02)
[2017-08-19] MEDS: Baclofen 10 MG TAB PO SCH (09:03)
[2017-08-19] MEDS: Heparin 5,000 UNITS/ML VIAL SC SCH ×3 (09:03→21:10)
[2017-08-19] MEDS: Famotidine/PF 20 mg/2ml Vial SLOW IVP SCH (09:03)
[2017-08-19] MEDS: risperiDONE 1 MG TAB PO SCH (09:03)
--- NOTE | 2017-08-19 09:42 | PDOC.PN ---
- Subjective Encounter Start Date: 08/19/17 Encounter Start Time: 09:39 CC: Abdominal pain Sub: pt got extubated this am - Objective Vital Signs & Weight: Vital Signs (12 hours) Temp Pulse Resp BP Pulse Ox 08/19/17 08:00 9 L 08/19/17 07:10 97.2 F L 70 13 100 08/19/17 06:56 97.2 F L 08/19/17 06:55 68 91/57 L 08/19/17 06:00 9 L 08/19/17 04:00 98.2 F 9 L 08/19/17 02:29 80 08/19/17 02:00 9 L 08/19/17 00:00 98.0 F 9 L 08/18/17 22:24 109 H 08/18/17 22:00 9 L Weight Admit Weight 111 lb 12.8 oz Weight 117 lb 11.629 oz Most Recent Monitor Data Heart Rate from ECG 65 NIBP 87/50 NIBP BP-Mean 66 Respiration from ECG 9 SpO2 100 I&O: 08/18/17 08/19/17 08/20/17 06:59 06:59 06:59 Intake Total 580 632.3 40 Output Total 150 1730 65 Balance 430 -1097.7 -25 Result Diagrams: 08/19/17 03:25 08/19/17 03:25 Phys Exam - Physical Examination Constitutional: NAD HEENT: moist MMs Neck: no JVD no wheezin, no rhonchi, diminished at bases Cardiovascular: RRR, no significant murmur, no rub no guarding, no rebound tenderness, mild tender to palpate Musculoskeletal: no edema Neurological: non-focal Psychiatric: normal affect Skin: no rash Dx/Plan - Plan Pt is 22 yrs old female (1) Cholecystitis Code(s): K81.9 - CHOLECYSTITIS, UNSPECIFIED Status: Acute (2) UTI (lower urinary tract infection) Code(s): N39.0 - URINARY TRACT INFECTION, SITE NOT SPECIFIED Status: Acute (3) Anxiety Code(s): F41.9 - ANXIETY DISORDER, UNSPECIFIED Status: Chronic (4) Depression Code(s): F32.9 - MAJOR DEPRESSIVE DISORDER, SINGLE EPISODE, UNSPECIFIED Status : Chronic (5) Paraplegia following spinal cord injury Code(s): G82.20 - PARAPLEGIA, UNSPECIFIED Status: Chronic 6. Acute hypoxic respiratory failure 7. Sepsis Plan: 1. s/p Lap elizabeth and ERCP. Appreciate GI & Surgery input 2. Respiratory status closely. Appreciate pulmonary input. 3. Continue IV antibiotic. Cultures no growth so far. WBC count improving 4. PRN pain meds and anxiolytics. Monitor respiratory status closely. 5. Repeat labs in am case d/w pt & RN
[2017-08-19] MEDS ORDERED: Potassium Chloride 40 MEQ in Sodium Chloride 0.9% 250 ML 250 ML IVPB ONE (11:00)
--- NOTE | 2017-08-19 11:23 | PRG ---
DATE OF SERVICE: 08/19/2017 SERVICE: Pulmonary Medicine. INTERVAL HISTORY: The patient is doing really well from a respiratory standpoint. She cannot provid e any additional elements of the history because of some sedation. Otherwise, there has been no inte rval change to her condition. She went for a cholecystectomy and ERCP yesterday. Multiple stones we re removed. The gallbladder is out now and hopefully, she will have recurrence of disease. There we re no significant events overnight since surgery. PHYSICAL EXAMINATION: VITAL SIGNS: Afebrile, pulse 75, blood pressure 90/58, respirations 11, saturation 97% on room air. GENERAL: Patient is awake, alert, no apparent distress. LUNGS: Decent air entry. There is no prolonged expiratory phase or wheezing present. HEART: Normal rate and regular. ABDOMEN: Soft, nontender, and nondistended. Bowel sounds are positive. MUSCULOSKELETAL: No cyanosis or clubbing. No pitting in the bilateral lower extremities. NEUROLOGIC: Grossly nonfocal. LABORATORY DATA: WBC 7.9, hemoglobin 10.8, platelets 345,000. Lymphocyte count is 17%, neutrophils are now 74%. Potassium 3.0. Liver function studies are otherwise unremarkable. AST is slightly mitchell vated at 85. Blood cultures x2 are unremarkable. ASSESSMENT: 1. Severe sepsis. 2. Metabolic encephalopathy. 3. Choledocholithiasis. 4. Cholecystitis DISCUSSION AND PLAN: The patient is doing really well postoperatively. As such, we will give her sp ontaneous breathing trial and make an attempt at extubating her. We will provide her with morphine f or any type of discomfort. Potassium will be replaced. Pulmonary or Critical Care will continue to follow. If she does well this afternoon, we can consider transferring her to the floor. CRITICAL CARE TIME: 30 minutes.
--- NOTE | 2017-08-19 13:24 | PRG ---
DATE OF SERVICE: 08/19/2017 Ms. Boyd is extubated, but is still not communicating with me. She will not answer questions or resp ond in any way. She is afebrile with normal vital signs. Potassium is little low and I ordered repl acement for this. Her AST is still mildly elevated, but other LFTs are normal. Her incisions are cl modesto, dry, and intact and she does not exhibit any signs of tenderness with palpation. ASSESSMENT: Status post laparoscopic cholecystectomy with postoperative ERCP for common bile duct st ones, doing well, and surgically ready for discharge, [facility] consult is pending.
--- NOTE | 2017-08-19 22:33 | PRG ---
DATE OF SERVICE: 08/19/2017 SUBJECTIVE: Ms. Boyd has been extubated today. She is still pretty sleepy. She is without complain ts. OBJECTIVE: VITAL SIGNS: Temperature is 98.1, blood pressure is 90/56, respirations 10, pulse 66 to 73. ABDOMEN: Soft and nontender. LABORATORY STUDIES: White count is 7.9, hemoglobin is 10.8, platelet count is 345: Sodium is 141, p otassium is 3.0, BUN and creatinine are 4 and 0.48. Liver function tests normal except for AST of 85 . ASSESSMENT: 1. Status post cholecystectomy for previous episodes of biliary pancreatitis and acute biliary colic with possible cholecystitis. The ERCP was performed at the same time for choledocholithiasis with c oncern for cholangitis, all stones are removed. She is doing well postoperatively. 2. Bipolar disorder versus schizophrenia with the patient being frankly psychotic on admission. 3. Methamphetamine abuse. RECOMMENDATIONS: I think, the patient needs to be seen by [facility] for possible involuntary commitment b efore discharge. She is on no psychiatric medicines at this time and I think has inability to make d ecisions regarding on care at this time and could be harming herself or others. These issues had bee n discussed with the admitting service as well. Consult was placed for [facility] by myself on the chart y .
[2017-08-20] MEDS: Meropenem 1 GM in Sterile Water 20 ML SLOW IVP SCH ×2 (02:33→08:42)
[2017-08-20 04:56] LABS: #Basophils 0.1 thou/uL (0.0-0.2); #Eosinphils 0.2 thou/uL (0.0-0.7); #Lymphocytes 2.1 thou/uL (1.20-3.40); #Monocytes 0.4 thou/uL (0.11-0.59); #Neutrophils 3.2 thou/uL (1.40-6.50); %Basophils 1.3 % (0.0-1.0); %Eosinophils 2.6 % (0.0-10.0); %Monocytes 6.6 % (0.0-10.0); %Neutrophils 54.5 % (42.0-75.0); Hemoglobin 10.9 g/dL (12.0-16.0); Mean Corpuscular HGB CONC 32.7 g/dL (32.0-36.0); Mean Corpuscular Hemoglobin 30.4 pg (27.0-31.0); Mean Corpuscular Volume 92.9 fl (81.0-99.0); Mean Platelet Volume 5.7 fL (7.4-10.4); Platelet Count 339 thou/uL (130-400); RBC Distribution Width 11.9 % (11.5-14.5); Red Blood Cell (RBC) Count 3.59 mill/uL (4.20-5.40); White Blood Cell (WBC) Count 5.9 thou/uL (4.8-10.8)
[2017-08-20 05:22] LABS: Anion Gap 6 mmol/L (10-20); BUN (Urea Nitrogen) Less than 4 mg/dL (7.0-18.7); Calc. Creatinine Clearance 146 mL/min (70-130); Calcium 7.8 mg/dL (7.8-10.44); Carbon Dioxide 27 mmol/L (22-29); Chloride 108 mmol/L (98-107); Estimated GFR-MDRD Greater than 90; Glucose 104 mg/dL (70-105); Potassium 3.2 mmol/L (3.5-5.1); Sodium 138 mmol/L (136-145)
[2017-08-20] MEDS: risperiDONE 1 MG TAB PO SCH (08:40)
[2017-08-20] MEDS: Heparin 5,000 UNITS/ML VIAL SC SCH ×3 (08:40→21:41)
[2017-08-20] MEDS: Baclofen 10 MG TAB PO SCH (08:40)
[2017-08-20] MEDS ORDERED: Potassium Chloride 40 MEQ in Sodium Chloride 0.9% 250 ML 250 ML IVPB SCH (09:00)
--- NOTE | 2017-08-20 11:53 | PRG ---
DATE OF SERVICE: 08/20/2016 SERVICE: Pulmonary Medicine INTERVAL HISTORY: The patient is doing fine from a cardiovascular and respiratory standpoint. She i s breathing extraordinarily comfortable on room air. She has no specific complaints of fevers, chill s, nausea or vomiting. There were no overnight events. She has been off restraints and Precedex now for a little over 12 hours. PHYSICAL EXAMINATION: VITAL SIGNS: Afebrile, pulse 92, blood pressure 114/60, respirations 18, saturation 94% on room air. GENERAL: The patient is awake, alert, in no apparent distress. LUNGS: Excellent air entry. No prolonged expiratory phase, wheezing, rhonchi or crackles. HEART: Normal rate, regular. ABDOMEN: Soft, nontender, nondistended. Bowel sounds are positive. MUSCULOSKELETAL: No cyanosis or clubbing. No pitting in the bilateral lower extremities. LABORATORY DATA: WBC 5.9, hemoglobin 10.9, platelets 339,000. Neutrophil count is normalized. Pota ssium 3.2, basic metabolic profile is essentially unremarkable otherwise. Blood cultures x2 are unre markable. ASSESSMENT: 1. Severe sepsis. 2. Metabolic encephalopathy. 3. Choledocholithiasis, status post cholecystectomy, postop day 2. 4. Cholecystitis. PLAN: The patient is doing fantastic from a respiratory standpoint. She can transition to the surgi juana floor. [facility] will need to evaluate her before she has disposition. I will replace the potassium. She will have no further requirements for pulmonary followup when she gets on the floor and I will sign off at that time. Please call with additional questions or concerns moving forward.
--- NOTE | 2017-08-20 14:06 | PRG ---
DATE OF SERVICE: 08/20/2017 SUBJECTIVE: She is extubated and she is without complaints. Nurses report she will not talk. MEDICATIONS: Baclofen, Tylenol, , meropenem, p.r.n. morphine, Zofran, Risperdal, Geodon 20 IM q .4 hours p.r.n. PHYSICAL EXAMINATION: VITAL SIGNS: Temperature is 98, pulse 92, blood pressure 114/60. GENERAL: She is pretty sedated. She is thin. She is in no distress. ABDOMEN: Soft, nontender. LABORATORY STUDIES: White count 5.9, hemoglobin 10.9, platelet count 339. Sodium 138, potassium 3.2 , BUN and creatinine are 4 and 0.5. ASSESSMENT: 1. Choledocholithiasis, resolved. 2. Symptomatic cholelithiasis and previous gallstone pancreatitis, status post laparoscopic cholecys tectomy. 3. Bipolar disorder or schizophrenia per family history. 4. Methamphetamine abuse. RECOMMENDATIONS: She seems to be a little bit over sedated. I would defer her antipsychotic medicat ions to Internal Medicine team, and I would strongly recommend [facility] consult, as I am not sure she is able to take care of in the outpatient setting. She was before surgery frankly psychotic in her beha vior and actions. At this time, nothing else from a GI standpoint that she needs and we will go ahea d and sign off. If I can be of any further assistance in her care, please do not hesitate to contact me.
[2017-08-20] MEDS: Dextrose 5 % And 0.9 % NaCl 1,000 ML IV SCH (14:59)
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
--- NOTE | 2017-08-20 18:11 | PDOC.PN ---
- Subjective Encounter Start Date: 08/20/17 Encounter Start Time: 17:50 Subjective: f/u for cholelithiasis s/p lap cholecystectomy with changes consistent with -: chronic cholecystitis. Feels much better and no abd pain. Tolerating po -: intake. - Objective MAR Reviewed: Yes Vital Signs & Weight: Vital Signs (12 hours) Temp Pulse Resp Pulse Ox 08/20/17 16:00 97.6 F 08/20/17 12:00 98.3 F 08/20/17 07:11 97.8 F 86 25 H 96 08/20/17 07:00 97.8 F Weight Admit Weight 111 lb 12.8 oz Weight 121 lb 4.068 oz Most Recent Monitor Data Heart Rate from ECG 97 NIBP 119/74 NIBP BP-Mean 93 Respiration from ECG 20 SpO2 94 I&O: 08/19/17 08/20/17 08/21/17 06:59 06:59 06:59 Intake Total 632.3 2838.4 1050 Output Total 1730 1812 1150 Balance -1097.7 1026.4 -100 Result Diagrams: 08/20/17 04:39 08/20/17 04:39 Additional Labs: Microbiology 08/17/17 16:42 Venous blood - Left Arm Blood Culture - Preliminary NO GROWTH AT 48 HOURS 08/17/17 16:41 Venous blood - Left Hand Blood Culture - Preliminary NO GROWTH AT 48 HOURS Laboratory Tests 08/17/17 08/18/17 08/19/17 15:40 16:37 03:25 Potassium 3.1 L 3.0 L Ur Amphetamines Screen Detected H U Methamphetamines Scrn Detected H EKG Reviewed by me: Yes (Tele - SR in 90's) Phys Exam - Physical Examination Constitutional: NAD HEENT: PERRLA, oral pharynx no lesions Neck: no JVD, supple Respiratory: no wheezing, clear to auscultation bilateral Cardiovascular: RRR Gastrointestinal: soft, non-tender, no distention, positive bowel sounds Musculoskeletal: no edema, pulses present + paraplegia, chronic Neurological: moves all 4 limbs Psychiatric: A&O x 3 Skin: normal turgor, cap refill <2 seconds Dx/Plan (1) Cholelithiasis Code(s): K80.20 - CALCULUS OF GALLBLADDER W/O CHOLECYSTITIS W/O OBSTRUCTION Status: Acute Comment: s/p lap elizabeth, POD #2 (2) Status post laparoscopic cholecystectomy Code(s): Z90.49 - ACQUIRED ABSENCE OF OTHER SPECIFIED PARTS OF DIGESTIVE TRACT Status: Acute Comment: POD #2, supportive, advance diet (3) Cholecystitis Code(s): K81.9 - CHOLECYSTITIS, UNSPECIFIED Status: Acute Comment: See above (4) Methamphetamine abuse Code(s): F15.10 - OTHER STIMULANT ABUSE, UNCOMPLICATED Status: Chronic (5) Paraplegia following spinal cord injury Code(s): G82.20 - PARAPLEGIA, UNSPECIFIED Status: Chronic Comment: Supportive, turning protocol (6) Decubitus ulcers Code(s): L89.90 - PRESSURE ULCER OF UNSPECIFIED SITE, UNSPECIFIED STAGE Status : Chronic Qualifiers: Pressure ulcer location: unspecified location Comment: Several ulcers on L hip, ankles, WCT for local care (7) Bipolar 1 disorder Code(s): F31.9 - BIPOLAR DISORDER, UNSPECIFIED Status: Suspected Comment: [facility] consult pending - Plan manager social work Stable overall -: Continue pain control -: Advance diet as tolerated -: Continue Baclofen and Risperdal -: Transfer to surgical floor * MR consult in am
--- NOTE | 2017-08-20 19:46 | PRG ---
DATE OF SERVICE: 08/20/2017 SUBJECTIVE: Ms. Boyd was a little more communicative and cooperative this morning. She did answer s ome questions. She is having some abdominal pain, but not severe and denies any nausea. OBJECTIVE: VITAL SIGNS: Stable. She is afebrile. LABORATORY DATA: White count is normal and electrolytes are unremarkable. Her incisions are clean, dry, and intact and she has appropriate antwan-incisional tenderness. Bowel s ounds are present. ASSESSMENT: Status post laparoscopic cholecystectomy with ERCP and removal of gallstones from the co mmon bile duct. She is doing well surgically. She is ready for discharge. She is still awaiting MR evaluation.
[2017-08-20] MEDS ORDERED: traZODone HCl 50 MG TAB PO PRN (21:17)
[2017-08-21 05:12] VITALS: BMI 19.6
[2017-08-21] MEDS: Baclofen 10 MG TAB PO SCH (09:08)
[2017-08-21] MEDS: risperiDONE 1 MG TAB PO SCH (09:08)
[2017-08-21] MEDS: Heparin 5,000 UNITS/ML VIAL SC SCH ×3 (09:09→23:03)
--- NOTE | 2017-08-21 15:23 | PDOC.PN ---
- Subjective Encounter Start Date: 08/21/17 Encounter Start Time: 15:15 Subjective: f/u s/p lap elizabeth with chronic cholecystitis POD #3. Overall doing well -: postop but [facility] evaluated the patient and deemed her unsafe to return -: home due mental instability. Recommending inpt psych. Pt wants to leave. - Objective MAR Reviewed: Yes Vital Signs & Weight: Vital Signs (12 hours) Temp Pulse Resp Pulse Ox 08/21/17 12:00 97.7 F 08/21/17 08:00 98.2 F 94 13 95 08/21/17 04:00 98.2 F Weight Admit Weight 111 lb 12.8 oz Weight 117 lb 15.157 oz Most Recent Monitor Data Heart Rate from ECG 94 NIBP 117/64 NIBP BP-Mean 82 Respiration from ECG 13 SpO2 94 I&O: 08/20/17 08/21/17 08/22/17 06:59 06:59 06:59 Intake Total 2838.4 1290 118 Output Total 1812 1150 5 Balance 1026.4 140 113 Result Diagrams: 08/20/17 04:39 08/20/17 04:39 Phys Exam - Physical Examination alert, responds to questions HEENT: PERRLA, oral pharynx no lesions Neck: no JVD, supple Respiratory: no wheezing, clear to auscultation bilateral Cardiovascular: RRR Gastrointestinal: soft, non-tender, no distention, positive bowel sounds Musculoskeletal: pulses present paraplegia LE's Deviation from normal: bilat foot ulcers with dressings in place Skin: normal turgor, cap refill <2 seconds Dx/Plan (1) Cholelithiasis Code(s): K80.20 - CALCULUS OF GALLBLADDER W/O CHOLECYSTITIS W/O OBSTRUCTION Status: Acute Comment: s/p lap elizabeth, POD #3 (2) Status post laparoscopic cholecystectomy Code(s): Z90.49 - ACQUIRED ABSENCE OF OTHER SPECIFIED PARTS OF DIGESTIVE TRACT Status: Acute Comment: POD #3, supportive, advance diet (3) Cholecystitis Code(s): K81.9 - CHOLECYSTITIS, UNSPECIFIED Status: Acute Comment: See above (4) Methamphetamine abuse Code(s): F15.10 - OTHER STIMULANT ABUSE, UNCOMPLICATED Status: Chronic (5) Paraplegia following spinal cord injury Code(s): G82.20 - PARAPLEGIA, UNSPECIFIED Status: Chronic Comment: Supportive, turning protocol (6) Decubitus ulcers Code(s): L89.90 - PRESSURE ULCER OF UNSPECIFIED SITE, UNSPECIFIED STAGE Status : Chronic Qualifiers: Pressure ulcer location: unspecified location Comment: Several ulcers on L hip, ankles, WCT for local care (7) Bipolar 1 disorder Code(s): F31.9 - BIPOLAR DISORDER, UNSPECIFIED Status: Suspected Comment: [facility] recommending inpt psych for intensive evaluation and supervision - Plan Spoke with [facility] who is recommending inpt psych evaluation and supervision -: Awaiting psych bed availability -: Geodon 20mg IM prn agitation -: Supportive measures -: [facility] re-evaluation in am * May need wrist restraints as pt is wanting to leave the hospital and does not want to stay, currently unsafe for discharge home
[2017-08-21] MEDS ORDERED: Lorazepam 1 MG TAB PO PRN (16:42)
--- NOTE | 2017-08-21 16:47 | PRG ---
DATE OF SERVICE: 08/21/2017 SERVICE: Pulmonary Medicine. INTERVAL HISTORY: The patient is doing fine from a respiratory and infectious standpoint. She has b een off of restraints and any sedating medications for more than 24 hours. This morning she is cool, calm and collected. She indicates that she has a little bit of an appetite. We are awaiting evalua tion by [facility] to determine whether or not she would be best served by inpatient evaluation. The patie nt continues to have significant psychosis. PHYSICAL EXAMINATION: VITAL SIGNS: Afebrile, pulse 69, blood pressure 121/69, respirations 14, saturation 94% on room air. GENERAL: The patient is awake and alert, in no apparent distress. LUNGS: Excellent air entry. There is no prolonged expiratory phase or wheezing. No rhonchi or crac kles are appreciated. HEART: Normal rate, regular. ABDOMEN: Soft. A little tender to palpation, but there is no rebound or guarding presently. Bowel sounds are hypoactive. GENITOURINARY: No Castorena catheter. NEUROLOGIC: Grossly nonfocal. ASSESSMENT: 1. Severe sepsis, resolved. 2. Metabolic encephalopathy, resolved. 3. Choledocholithiasis 4. Status post cholecystectomy. 5. Postoperative day #3. 6. Chronic cholecystitis. PLAN: The patient is currently stable from a medical standpoint for discharge from the hospital. Th at being said, and suggested that should be well served by inpatient evaluation as they feel zeinab t she may not be safe in her home environment at this time. Either way, she has no further requirend nts for inpatient Pulmonary or Critical Care opinion. She can transition to the surgical unit where we can continue to observe her. Antibiotics per primary/GI/Surgery. Please call with additional que stions or concerns moving forward.
[2017-08-22 08:13] VITALS: BP 100/61; TEMP 97.4
[2017-08-22] MEDS: risperiDONE 1 MG TAB PO SCH (09:35)
[2017-08-22] MEDS: Heparin 5,000 UNITS/ML VIAL SC SCH ×2 (09:35→14:40)
[2017-08-22] MEDS: Baclofen 10 MG TAB PO SCH (09:35)
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
--- NOTE | 2017-08-23 03:59 | DIS ---
DATE OF ADMISSION: 08/17/2017 DATE OF DISCHARGE: 08/22/2017 DISCHARGE DIAGNOSES: 1. Chronic cholecystitis/cholelithiasis. 2. Status post laparoscopic cholecystectomy with intraoperative cholangiogram 08/18/2017. 3. Bipolar disorder with transient psychosis, improved. 4. Methamphetamine abuse. 5. Paraplegia following spinal cord injury, chronic. 6. Decubitus ulcers of the lower extremities, chronic, present prior to admission. 7. Metabolic encephalopathy, resolved. 8. Status post acute hypoxic respiratory failure, resolved. CONSULTATIONS: Dr. Urbina with Critical Care Service. Dr. Pak with GI service. Dr. Jose kathleen h General Surgery Service. PERTINENT LABORATORY AND X-RAY FINDINGS: Potassium ranged between 3.1-4.1. AST ranged between 22-85 . Total bilirubin ranged between 0.6-0.9. Albumin ranged between 2.8-3.6. CBC showed a white blood cell count ranging between 5.9-18.2. Hemoglobin ranged between 10.8-13.3. Urine drug screen dated 08/17/2017, positive for methamphetamines. Plasma alcohol level less than 10. Blood cultures x2 fro m 08/17/2017 showed no growth at 48 hours. Abdominal radiograph dated 08/17/2017 showed moderate deg ree of retained fecal material in the lower aspect of the colon. Paucity of bowel gas. Abdominal ul trasound dated 08/17/2017 showed cholelithiasis. Evidence of choledocholithiasis and biliary obstruc tion with common bile duct measuring 8-9 mm. Mild wall thickening and pericholecystic edema. Portab le chest x-ray dated 08/18/2017 showed endotracheal tube in appropriate positioning. No acute proces s identified. HOSPITAL COURSE: Patient was initially admitted after presenting with abdominal pain, nausea, and fe christine, undergoing extensive evaluation including multiple abdominal imaging studies showing evidence of cholelithiasis and questionable choledocholithiasis. Patient was initially treated for a possible u rinary tract infection with IV meropenem. Due to the findings of abdominal ultrasound, patient was e valuated by the General Surgery and GI service for suspected cholecystitis. Patient underwent ERCP o n 08/18/2017 with sphincterotomy and removal of bile duct stones. Patient proceeded to laparoscopic cholecystectomy with intraoperative cholangiogram. Patient tolerated the procedure and was monitored postoperatively in the critical care unit. Patient continued on broad-spectrum IV antibiotic therap y and met appropriate milestones extubating without complication and tolerating regular oral intake. Patient's hospital course was complicated and extended due to a history of bipolar disorder and ques tionable transient psychosis. Patient was evaluated by the [facility] service who initially deemed the pat ient unsafe for discharge due to the psychosis and altered thinking. Patient was observed for approx imately 24 hours further with reevaluation by [facility] showing patient to be clinically stabilizing coher ent and oriented. Patient was deemed safe for discharge with recommendations for outpatient [facility] fol low up. Patient overall clinically stable, tolerating regular oral intake with stable vital signs. No current suicidal or homicidal ideation and cleared by [facility] for discharge. Patient is ready for the [facility] specialty hospital on 08/22/2017. DISCHARGE MEDICATIONS: 1. Baclofen 10 mg p.o. daily. 2. Risperdal 1 mg p.o. daily. FOLLOWUP: Patient may follow up with Dr. Kadi Goodman within 7 days of discharge. Patient may also f ollow up with [facility] services on an outpatient basis. CONDITION ON DISCHARGE: Stable. ACTIVITY: Ad emmy. DIET: Regular. CODE STATUS: Full. DISPOSITION: Home 08/22/2017. Total time in preparing and coordinating discharge is 36 minutes.
== END 2017-08-22 18:52 | disposition home or self-care (01) | DRG 853 ==
LOC: ERS 14:58 → 2NO 17:03 → CCU 08-18 14:28 → SURG A 08-21 14:12
PROVIDERS: ADMIT Internal Medicine; ATTEND Internal Medicine
PROC: 0BH17EZ Insertion of Endotracheal Airway into Trachea, Via Natural or Artificial Opening (ICD-10-PCS; 2017-08-18)
PROC: 0FC98ZZ Extirpation of Matter from Common Bile Duct, Via Natural or Artificial Opening Endoscopic (ICD-10-PCS; 2017-08-18)
PROC: 0F798ZZ Dilation of Common Bile Duct, Via Natural or Artificial Opening Endoscopic (ICD-10-PCS; 2017-08-18)
PROC: BF101ZZ Fluoroscopy of Bile Ducts using Low Osmolar Contrast (ICD-10-PCS; 2017-08-18)
PROC: 5A1935Z Respiratory Ventilation, Less than 24 Consecutive Hours (ICD-10-PCS; 2017-08-18)
PROC: 0FT44ZZ Resection of Gallbladder, Percutaneous Endoscopic Approach (ICD-10-PCS; principal; 2017-08-19)
DX: A41.9 Sepsis, unspecified organism (principal); K80.67 Calculus of gallbladder and bile duct with acute and chronic cholecystitis with obstruction; J96.01 Acute respiratory failure with hypoxia; G93.41 Metabolic encephalopathy; L89.222 Pressure ulcer of left hip, stage 2; G82.20 Paraplegia, unspecified; N39.0 Urinary tract infection, site not specified; F30.2 Manic episode, severe with psychotic symptoms; L89.522 Pressure ulcer of left ankle, stage 2; L89.512 Pressure ulcer of right ankle, stage 2; L89.622 Pressure ulcer of left heel, stage 2; L89.612 Pressure ulcer of right heel, stage 2; F15.90 Other stimulant use, unspecified, uncomplicated
CPT/HCPCS: 36415; 47532; 51701; 71045; 74018; 74330; 76705; 80048; 80053; 80306; 80307; 81003; 81015; 82550; 82805; 83690; 85007; 85025; 85027; 85652; 87040; 88304; 94002; 94003; 96361; 96365; 96375; A4216; A4353; J1610; J1644; J1956; J2060; J2185; J2250; J2270; J2405; J2704; J3370; J3480; J3486; J7050; Q9961; S0028

== ENCOUNTER 2018-01-05 16:04 | Emergency (ER) | payer MEDICAID, MEDICARE ==
[2018-01-05 17:16] LABS: ALT (SGPT) 31 U/L (8-55); AST (SGOT) 41 U/L (5-34); Albumin 2.3 g/dL (3.5-5.0); Alkaline Phosphatase 127 U/L (40-150); Anion Gap 15 mmol/L (10-20); BUN (Urea Nitrogen) 8 mg/dL (7.0-18.7); Bilirubin, Total 0.8 mg/dL (0.2-1.2); Calc. Creatinine Clearance 0 mL/min (70-130); Calcium 8.2 mg/dL (7.8-10.44); Carbon Dioxide 24 mmol/L (22-29); Chloride 96 mmol/L (98-107); Estimated GFR-MDRD Greater than 90; Globulin 3.8 g/dL (2.4-3.5); Glucose 85 mg/dL (70-105); Potassium 4.1 mmol/L (3.5-5.1); Protein, Total 6.1 g/dL (6.0-8.3); Sodium 131 mmol/L (136-145)
[2018-01-05 17:18] LABS: Anisocytosis SLIGHT = 6-15 cells (100X) (0-5/hpf); Band 18 % (5-11); Hemoglobin 7.7 g/dL (12.0-16.0); Hypochromia MODERATE=16-30 cells (100X) (0-5/hpf); Lymphocytes 28 % (21-51); MDiff Complete? YES; Macrocytosis SLIGHT = 6-15 cells (100X) (0-5/hpf); Mean Corpuscular HGB CONC 31.5 g/dL (32.0-36.0); Mean Corpuscular Hemoglobin 23.5 pg (27.0-31.0); Mean Corpuscular Volume 74.7 fL (78.0-98.0); Mean Platelet Volume 4.5 fL (7.4-10.4); Monocytes 11 % (0-10); Neutrophil 41 % (42-75); PLT Morphology Comment Appears Increased; Platelet Count 894 thou/uL (130-400); Polychromasia SLIGHT = 2-3 cells (100X) (0-2/hpf); RBC Distribution Width 14.6 % (11.5-14.5); Reactive Lymphocytes 1 % (0-10); Red Blood Cell (RBC) Count 3.25 mill/uL (4.20-5.40); Reflex for Review?? YES; White Blood Cell (WBC) Count 14.1 thou/uL (4.8-10.8)
== END 2018-01-05 18:49 | disposition left against medical advice (07) ==
LOC: SCSER 16:04
DX: A41.9 Sepsis, unspecified organism (principal); L89.324 Pressure ulcer of left buttock, stage 4; G82.20 Paraplegia, unspecified; F41.9 Anxiety disorder, unspecified; F32.9 Major depressive disorder, single episode, unspecified; F17.210 Nicotine dependence, cigarettes, uncomplicated
CPT/HCPCS: 80053; 83605; 85025; 85060; 87040; 96360; 96361

== ENCOUNTER 2018-01-08 00:26 | Inpatient (IN) | payer MEDICARE ==
[2018-01-08] MEDS ORDERED: Acetaminophen 500 MG TAB ONE (00:51)
[2018-01-08 01:37] LABS: ALT (SGPT) 26 U/L (8-55); AST (SGOT) 51 U/L (5-34); Albumin 2.4 g/dL (3.5-5.0); Alkaline Phosphatase 143 U/L (40-150); Anion Gap 14 mmol/L (10-20); BUN (Urea Nitrogen) 7 mg/dL (7.0-18.7); Bilirubin, Total 0.8 mg/dL (0.2-1.2); Calc. Creatinine Clearance 0 mL/min (70-130); Carbon Dioxide 24 mmol/L (22-29); Chloride 97 mmol/L (98-107); Estimated GFR-MDRD Greater than 90; Globulin 4.1 g/dL (2.4-3.5); Glucose 94 mg/dL (70-105); Potassium 3.7 mmol/L (3.5-5.1); Protein, Total 6.5 g/dL (6.0-8.3); Sodium 131 mmol/L (136-145)
[2018-01-08 01:52] LABS: Hemoglobin 7.7 g/dL (12.0-16.0); Mean Corpuscular HGB CONC 31.5 g/dL (32.0-36.0); Mean Corpuscular Hemoglobin 24.8 pg (27.0-31.0); Mean Corpuscular Volume 78.6 fL (78.0-98.0); Mean Platelet Volume 4.9 fL (7.4-10.4); Platelet Count 880 thou/uL (130-400); RBC Distribution Width 15.5 % (11.5-14.5); Red Blood Cell (RBC) Count 3.11 mill/uL (4.20-5.40); White Blood Cell (WBC) Count 16.8 thou/uL (4.8-10.8)
[2018-01-08 01:57] LABS: Band 23 % (5-11); Lymphocytes 27 % (21-51); MDiff Complete? YES; Monocytes 7 % (0-10); Neutrophil 43 % (42-75); PLT Morphology Comment Appears Increased
[2018-01-08] MEDS ORDERED: MEROPENEM 1 GM/50 ML 1 GM in Premix Bag 1 BAG IVPB SCH (05:00)
[2018-01-08 05:27] LABS: Lactic Acid 1.2 mmol/L (0.5-2.2)
[2018-01-08 06:31] LABS: Bilirubin Negative (Negative); Blood, Urine Negative (Negative); Clarity CLEAR (Clear); Glucose, Urine (Dipstick) Negative (Negative); Leukocyte Negative (Negative); Nitrite Negative (Negative); Protein, Urine (Dipstick) Negative (Neg-Trace); Specific Gravity, Urine 1.006 (1.002-1.036); pH, Urine 6.5 (5.0-9.0)
[2018-01-08 06:48] LABS: Amphetamine Detected (NotDetected); Barbiturates Screen Not Detected (NotDetected); Benzodiazepine Screen Not Detected (NotDetected); Cocaine Metabolite Screen Not Detected (NotDetected); Medtox Control Line Valid? VALID (VALID); Medtox Reader # READER 4; Methadone Not Detected (NotDetected); Methamphetamine Detected (NotDetected); Opiate Screen Not Detected (NotDetected); Oxycodone Screen Not Detected (NotDetected); Phencyclidine (PCP) Not Detected (NotDetected); THC/Cannabinoid Screen Not Detected (NotDetected); Tricyclic Screen Not Detected (NotDetected)
[2018-01-08] MEDS ORDERED: Mag-Al 1200 mg/1200 mg/30 ML UDCUP PO PRN (09:12)
[2018-01-08] MEDS ORDERED: Acetaminophen 325 MG TAB PO PRN (09:12)
[2018-01-08] MEDS ORDERED: Enoxaparin Sodium 40 MG/0.4 ML SYRINGE SC SCH ×2 (09:12→09:45)
[2018-01-08] MEDS ORDERED: Docusate 100 MG CAP PO SCH ×2 (09:12→09:45)
--- NOTE | 2018-01-08 09:20 | RAD ---
FRONTAL VIEW CHEST 2 VIEWS: Date: 01/08/18 COMPARISON: 08/18/17. INDICATION: Emergency exam, difficulty breathing. Pain. FINDINGS: Lungs are hyperinflated. No consolidation or effusion. There is no discrete pneumothorax. Partially i sam spinal hardware is present. IMPRESSION: 1. Hyperinflated lungs. 2. No focal consolidation. POS: [facility]
--- NOTE | 2018-01-08 09:27 | RAD ---
2 VIEWS SACRUM AND COCCYX: Date: 01/08/18 PROVIDED CLINICAL HISTORY: Evidence for osteomyelitis. FINDINGS: There is no evidence for fracture. No radiographically apparent osteolytic or osteoblastic processes. Postoperative changes are partially visualized involving the lower lumbar spine with probable loosen ing of the bilateral L3 pedicle screws. IMPRESSION: 1. No radiographic evidence for osteomyelitis. 2. Probable loosening of lumbar spine hardware. Correlation with dedicated lumbar spine radiographs recommended. CODE T. POS: [facility]
[2018-01-08 09:36] LABS: Iron 9 ug/dL (50-170); Iron Binding Capacity, Total 104 mcg/dL (265-497)
[2018-01-08] MEDS: Sodium Chloride 0.9% 1,000 ML IV SCH ×2 (10:12→18:20)
[2018-01-08 10:19] VITALS: BMI 19.1
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
[2018-01-08] MEDS: Vancomycin HCl 1 GM in Premix Bag 1 BAG IVPB SCH ×2 (14:33→22:15)
[2018-01-08] MEDS ORDERED: Vancomycin HCl 1 GM in Premix Bag 1 BAG IVPB SCH (15:00)
[2018-01-08] MEDS: Docusate 100 MG CAP PO SCH (20:17)
[2018-01-09] MEDS: Sodium Chloride 0.9% 1,000 ML IV SCH ×3 (00:58→22:36)
[2018-01-09 05:22] LABS: Anion Gap 13 mmol/L (10-20); BUN (Urea Nitrogen) 6 mg/dL (7.0-18.7); Calc. Creatinine Clearance 171 mL/min (70-130); Calcium 7.2 mg/dL (7.8-10.44); Carbon Dioxide 17 mmol/L (22-29); Chloride 107 mmol/L (98-107); Estimated GFR-MDRD Greater than 90; Glucose 107 mg/dL (70-105); Potassium 3.6 mmol/L (3.5-5.1); Sodium 133 mmol/L (136-145)
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
[2018-01-09 06:14] LABS: Band 23 % (5-11); Burr Cells SLIGHT = 2-5 cells (100X) (0-1/hpf); Eosinophils 1 % (0-10); Hemoglobin 6.9 g/dL (12.0-16.0); Lymphocytes 26 % (21-51); MDiff Complete? YES; Mean Corpuscular HGB CONC 29.4 g/dL (32.0-36.0); Mean Corpuscular Hemoglobin 24.7 pg (27.0-31.0); Mean Corpuscular Volume 84.2 fL (78.0-98.0); Mean Platelet Volume 5.7 fL (7.4-10.4); Monocytes 5 % (0-10); Neutrophil 45 % (42-75); PLT Morphology Comment Appears Increased; Platelet Count 669 thou/uL (130-400); RBC Distribution Width 15.4 % (11.5-14.5); Red Blood Cell (RBC) Count 2.78 mill/uL (4.20-5.40); White Blood Cell (WBC) Count 10.8 thou/uL (4.8-10.8)
[2018-01-09] MEDS: Vancomycin HCl 1 GM in Premix Bag 1 BAG IVPB SCH ×3 (06:32→16:58)
[2018-01-09] MEDS: Prenatal Vitamin 1 TAB PO SCH (08:09)
[2018-01-09] MEDS: Enoxaparin Sodium 40 MG/0.4 ML SYRINGE SC SCH (08:09)
[2018-01-09] MEDS: Docusate 100 MG CAP PO SCH ×2 (08:09→20:45)
--- NOTE | 2018-01-09 09:48 | ULT ---
LEFT LOWER EXTREIMTY VENOUS DUPLEX STUDY: INDICATION: Left lower extremity pain and edema. FINDINGS: Deep veins of the left lower extremity are evaluated with color Doppler, spectral analysis, and compr ession. Deep veins evaluated include common femoral, femoral vein, profunda, popliteal, and posterior tibial veins. These deep veins also have normal blood flow and compression. No evidence of deep vein thrombosis. Edema is seen in the subcutaneous tissues. There are enlarged lymph nodes seen in the left inguinal region measuring up to 2.5 cm. IMPRESSION: 1. No evidence of left lower extremity deep vein thrombosis. 2. Subcutaneous edema. 3. Enlarged left inguinal lymph nodes. POS: [facility]
--- NOTE | 2018-01-09 16:32 | PDOC.PN ---
- Subjective Encounter Start Date: 01/09/18 Encounter Start Time: 16:29 Ms. Boyd was seen in follow-up. She had threatened to leave AMA, but has decided to stay. She still continues to refuse some treatment from the nursing staff. - Objective Resuscitation Status: Resuscitation Status FULL:Full Resuscitation MAR Reviewed: Yes Vital Signs & Weight: Vital Signs (12 hours) Temp Pulse Resp BP Pulse Ox 01/09/18 08:00 97.3 F L 103 H 18 95 01/09/18 07:11 97.3 F L 103 H 18 120/48 L 95 Weight Admit Weight 115 lb 5 oz Weight 115 lb 5 oz I&O: 01/08/18 01/09/18 01/10/18 06:59 06:59 06:59 Intake Total 1170 420 Balance 1170 420 Result Diagrams: 01/09/18 04:22 01/09/18 04:22 Phys Exam - Physical Examination HEENT: PERRLA Respiratory: no wheezing, no rales, no rhonchi, clear to auscultation bilateral Cardiovascular: RRR, no significant murmur Gastrointestinal: soft, non-tender, positive bowel sounds Musculoskeletal: edema present + swelling in the left lower extremity- wound is dressed Dx/Plan (1) Decubitus ulcer, stage 4 Code(s): L89.94 - PRESSURE ULCER OF UNSPECIFIED SITE, STAGE 4 Status: Acute (2) Sepsis Code(s): A41.9 - SEPSIS, UNSPECIFIED ORGANISM Status: Acute - Plan * Sepsis due to infected Decubitus ulcer- Her hemodynamics have improved * Continue Broad spectrum antibiotics * Surgery recommendations were noted * Anemia- due to iron deficiency- can start iron supplementation, will start with IV iron infusion followed by oral * Continue Nutritional support.
[2018-01-09] MEDS ORDERED: Sodium Ferric Gluconate 125 MG in Sodium Chloride 0.9% 100 ML IVPB SCH (16:45)
--- NOTE | 2018-01-09 18:02 | PDOC.GSPN ---
Surgery Progress Note: Subj - Subjective Narrative: Patient still refuses to believe that she has any exposed bone in the wound or that it is is bad as we describe. She absolutely refused to let us take any pictures which would have clearly documented exposed bone in the base of the wound and necrotic subcutaneous tissue and muscle. She did allow me to sharply debride and excise some of the subcutaneous fat and muscle which was necrotic in the inferior portion of the wound but refused to allow me to debride the bone. She was verbally abusive to the nurse stating that she had created her wound by pulling it apart and taking pictures, and repeatedly swearing at both of us and accusing us of lying to her. Necrotic fat and muscle in the inferior portion of the wound is fairly superficial with viable tissues lying just beneath it so we placed Medihoney to the wound to decrease the bacterial count and help debride the wounds with wet-to-dry dressings. I recommended wet-to-dry dressings this week with conversion to a VAC dressing after the wound is adequately debrided. She will need offloading and long-term antibiotics to attempt to heal this wound. Given her tenuous social situation, extremely poor judgment, and history of noncompliance, I'm not optimistic that she will be able to successfully heal this wound. A psychiatric examination could be considered as the patient has consistently made choices putting her health at risk and may not be competent to make informed medical decisions, but although she is definitely expressing some paranoid thoughts she does not seem to be floridly psychotic. Since she is declining all surgical intervention, I will plan on seeing her once every week or 2 while she is an inpatient. She has been consistently uncooperative and belligerent so I do not expect her to change her mind, but if she does please inform me and I will see her earlier. Surgery Progress Note: Obj - Vital signs Vital signs: Vital Signs - Most Recent Temp Pulse Resp BP Pulse Ox 97.3 F L 103 H 18 120/48 L 95 01/09/18 08:00 01/09/18 08:00 01/09/18 08:00 01/09/18 07:11 01/09/18 08:00 Surgery Progress Note: Results - Labs Result Diagrams: 01/09/18 04:22 01/09/18 04:22 Lab results: Laboratory Results - last 24 hr 01/09/18 04:22 WBC 10.8 RBC 2.78 L Hgb 6.9 L Hct 23.4 L MCV 84.2 MCH 24.7 L MCHC 29.4 L RDW 15.4 H Plt Count 669 H MPV 5.7 L Neutrophils % (Manual) 45 Band Neuts % (Manual) 23 H Lymphocytes % (Manual) 26 Monocytes % (Manual) 5 Eosinophils % (Manual) 1 Plt Morphology Comment Appears Increased H Adak Cells SLIGHT = 2-5 cells
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
[2018-01-10] MEDS: Vancomycin HCl 1 GM in Premix Bag 1 BAG IVPB SCH ×3 (00:03→16:48)
[2018-01-10] MEDS: Sodium Chloride 0.9% 1,000 ML IV SCH ×3 (01:11→16:49)
[2018-01-10] MEDS: Enoxaparin Sodium 40 MG/0.4 ML SYRINGE SC SCH (08:39)
[2018-01-10] MEDS: Docusate 100 MG CAP PO SCH ×2 (08:39→20:33)
[2018-01-10] MEDS: Zinc Sulfate 220 MG CAP PO SCH (08:40)
[2018-01-10] MEDS: Prenatal Vitamin 1 TAB PO SCH (08:40)
--- NOTE | 2018-01-10 14:22 | PDOC.PN ---
- Subjective Encounter Start Date: 01/10/18 Encounter Start Time: 14:18 Ms. Boyd was seen today in follow-up. He was agitaed, and a bit combative. She did not like me confronting her about the refusal to have lab work drawn in order to check her Vanco levels. She also says she is tired of hearing the same old speech about how we are trying to help her. She says the antibiotics are " [employer]" and that is why we have to check lab work . She pulled the bed sheets over her eyes, and asked me to leave the room. - Objective Resuscitation Status: Resuscitation Status FULL:Full Resuscitation MAR Reviewed: Yes Vital Signs & Weight: Vital Signs (12 hours) Temp Pulse Resp BP Pulse Ox 01/10/18 10:57 97.8 F 101 H 16 98/58 L 100 01/10/18 08:19 97.9 F 101 H 16 105/65 97 01/10/18 08:00 97.9 F 101 H 16 97 01/10/18 05:30 97.7 F 65 18 112/69 94 L Weight Admit Weight 115 lb 5 oz Weight 115 lb 5 oz I&O: 01/09/18 01/10/18 01/11/18 06:59 06:59 06:59 Intake Total 1170 660 Balance 1170 660 Result Diagrams: 01/09/18 04:22 01/09/18 04:22 Phys Exam - Physical Examination Unable Dx/Plan (1) Decubitus ulcer, stage 4 Code(s): L89.94 - PRESSURE ULCER OF UNSPECIFIED SITE, STAGE 4 Status: Acute (2) Sepsis Code(s): A41.9 - SEPSIS, UNSPECIFIED ORGANISM Status: Acute - Plan * Infected Decubitus Ulcer- will continue the same antibiotics for now- will consult ID to help with recommending antibiotics going forward * Continue Local wound care * Continue Nutritional support as tolerated * Iron deficiency anemia- she did get the IV iron yesterday, but has refused oral supplementation- will continue to try to encourage her to be compliant with medications..
[2018-01-10] MEDS: Ferrous Sulfate 325 MG TAB PO SCH (16:48)
[2018-01-10 19:36] VITALS: BP 98/60; TEMP 98.7
[2018-01-11] MEDS: Vancomycin HCl 1 GM in Premix Bag 1 BAG IVPB SCH ×2 (00:01→08:15)
[2018-01-11] MEDS: Sodium Chloride 0.9% 1,000 ML IV SCH ×2 (00:14→10:47)
[2018-01-11] MEDS: Zinc Sulfate 220 MG CAP PO SCH (08:15)
[2018-01-11] MEDS: Enoxaparin Sodium 40 MG/0.4 ML SYRINGE SC SCH (08:15)
[2018-01-11] MEDS: Prenatal Vitamin 1 TAB PO SCH (08:15)
[2018-01-11] MEDS: Docusate 100 MG CAP PO SCH (08:15)
[2018-01-11] MEDS: Ferrous Sulfate 325 MG TAB PO SCH (08:15)
--- NOTE | 2018-01-11 09:00 | CON ---
DATE OF CONSULTATION: 01/10/2018 HISTORY OF PRESENT ILLNESS: A 22-year-old patient who has a history of paraplegia, bipolar disorder and methamphetamine use in the past, who has had previous admissions for complications related to her paraplegia and this time was admitted with edema in lower extremities as well as a stage 4 decubitus ulcer in the presacral region. The patient had just recently been discharged on 01/09/2018 and she at that time left against medical advice. This time I approached the patient and she declined to giv e permission to examine her. I had to interrupt the interview and exam. Her vital signs are ladarius rkable for mild tachycardia. LABORATORY DATA: Shows white cell count of 16.8 and 10.8, hemoglobin 7.7, platelets 880, 23% bands. Sodium 133, creatinine 0.42. AST 51, ALT 26, albumin 2.4. Urinalysis was normal. Microbiology wit h group B strep from the gluteal region. Urine culture no growth and 2 sets of blood cultures no colin wth at 48 hours. The imaging study is the sacrum and coccygeal test, x-ray which did not show any r adiographic evidence of osteomyelitis with probable loosening of the lumbar spine hardware. ASSESSMENT AND PLAN: Stage 4 decubitus ulcer in the setting of paraplegia, likely osteomyelitis and other complicated infection in the area. She may be bacteremic, but that has not been determined yet . The patient has evidence of chronic inflammatory process with thrombocytosis and bandemia and we w ill need aggressive intervention. Otherwise, she will have a poor outcome. The patient is refusing medical evaluation at this time, may need to request ethics committee evaluation, maybe even a psychi atric evaluation. She may benefit from psychotropic medication in an attempt to improve her behavior al issues and allow management.
[2018-01-11] MEDS ORDERED: Cephalexin 250 MG CAP PO SCH (15:00)
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
--- NOTE | 2018-01-12 13:43 | EKG ---
Test Reason : Blood Pressure : / mmHG Vent. Rate : 136 BPM Atrial Rate : 136 BPM P-R Int : 130 ms QRS Dur : 074 ms QT Int : 282 ms P-R-T Axes : 075 071 070 degrees QTc Int : 424 ms Sinus tachycardia Left atrial enlargement Borderline ECG Confirmed by BOAZ ROSALES, DAVE James ([id number]), map editor LILIAM PADILLA ([id number]) on 01/12/2018 1:42:55 PM Referred By: Confirmed By:DAVE SANDRA MD
== END 2018-01-11 16:52 | disposition home or self-care (01) | DRG 871 ==
LOC: ERS 00:26 → ERHOLD 04:17 → T4-A 09:08
PROVIDERS: ADMIT Hospitalist; ATTEND Hospitalist
DX: A41.9 Sepsis, unspecified organism (principal); L89.224 Pressure ulcer of left hip, stage 4; M86.8X5 Other osteomyelitis, thigh; G82.20 Paraplegia, unspecified; D50.9 Iron deficiency anemia, unspecified; F31.9 Bipolar disorder, unspecified; F17.210 Nicotine dependence, cigarettes, uncomplicated; F19.10 Other psychoactive substance abuse, uncomplicated; Z91.19 Patient's noncompliance with other medical treatment and regimen
CPT/HCPCS: 36415; 51701; 71045; 72220; 80048; 80053; 80306; 81003; 82728; 83540; 83550; 83605; 85025; 85060; 87040; 87070; 87077; 87086; 87205; 93005; 96360; 96361; 96365; 96366; 96367; A4216; A4353; J1650; J1956; J2185; J2916; J3370; J7050

== ENCOUNTER 2018-01-16 05:19 | Emergency (ER) | payer MEDICARE ==
[2018-01-16 06:30] LABS: ALT (SGPT) 18 U/L (8-55); AST (SGOT) 44 U/L (5-34); Albumin 2.3 g/dL (3.5-5.0); Alkaline Phosphatase 136 U/L (40-150); Anion Gap 13 mmol/L (10-20); BUN (Urea Nitrogen) 10 mg/dL (7.0-18.7); Bilirubin, Total 0.5 mg/dL (0.2-1.2); Calc. Creatinine Clearance 0 mL/min (70-130); Carbon Dioxide 23 mmol/L (22-29); Chloride 100 mmol/L (98-107); Estimated GFR-MDRD Greater than 90; Globulin 3.9 g/dL (2.4-3.5); Glucose 104 mg/dL (70-105); Potassium 3.4 mmol/L (3.5-5.1); Protein, Total 6.2 g/dL (6.0-8.3); Sodium 133 mmol/L (136-145)
[2018-01-16 06:46] LABS: Band 8 % (5-11); Hemoglobin 6.2 g/dL (12.0-16.0); Hypochromia SLIGHT = 6-15 cells (100X) (0-5/hpf); Lymphocytes 10 % (21-51); MDiff Complete? YES; Mean Corpuscular HGB CONC 31.4 g/dL (32.0-36.0); Mean Corpuscular Hemoglobin 24.7 pg (27.0-31.0); Mean Corpuscular Volume 78.6 fL (78.0-98.0); Mean Platelet Volume 5.1 fL (7.4-10.4); Monocytes 3 % (0-10); Neutrophil 79 % (42-75); PLT Morphology Comment Appears Increased; Platelet Count 721 thou/uL (130-400); RBC Distribution Width 17.6 % (11.5-14.5); Red Blood Cell (RBC) Count 2.49 mill/uL (4.20-5.40); White Blood Cell (WBC) Count 25.2 thou/uL (4.8-10.8)
== END 2018-01-16 07:21 | disposition left against medical advice (07) ==
LOC: ERS 05:19
DX: L89.891 Pressure ulcer of other site, stage 1 (principal); F41.9 Anxiety disorder, unspecified; F32.9 Major depressive disorder, single episode, unspecified; F17.210 Nicotine dependence, cigarettes, uncomplicated; Z79.899 Other long term (current) drug therapy
CPT/HCPCS: 80053; 83605; 85025; 87040; 87070; 87205

== ENCOUNTER 2018-01-16 11:28 | Inpatient (IN) | payer MEDICARE ==
[2018-01-16 13:11] LABS: Hemoglobin 5.9 g/dL (12.0-16.0); Mean Corpuscular HGB CONC 31.3 g/dL (32.0-36.0); Mean Corpuscular Hemoglobin 24.5 pg (27.0-31.0); Mean Corpuscular Volume 78.3 fL (78.0-98.0); Mean Platelet Volume 5.1 fL (7.4-10.4); Platelet Count 723 thou/uL (130-400); RBC Distribution Width 17.6 % (11.5-14.5); Red Blood Cell (RBC) Count 2.41 mill/uL (4.20-5.40); White Blood Cell (WBC) Count 20.9 thou/uL (4.8-10.8)
--- NOTE | 2018-01-16 13:35 | RAD ---
CHEST 1 VIEW: Date: 01/16/18 COMPARISON: 01/08/18. HISTORY: Fever. Left leg infection. FINDINGS: Incompletely evaluated, but stable fusion hardware in the distal thoracic and upper lumbar spine. Normal cardiac silhouette. Pulmonary vessels and hilum are normal. Costophrenic angles are clear. No consolidation or mass. No pneumothorax or osseous abnormalities. IMPRESSION: No acute cardiopulmonary process. POS: [id number]
[2018-01-16 13:36] LABS: ALT (SGPT) 16 U/L (8-55); AST (SGOT) 22 U/L (5-34); Albumin 2.3 g/dL (3.5-5.0); Alkaline Phosphatase 126 U/L (40-150); Anion Gap 14 mmol/L (10-20); BUN (Urea Nitrogen) 10 mg/dL (7.0-18.7); Bilirubin, Total 0.7 mg/dL (0.2-1.2); Calc. Creatinine Clearance 0 mL/min (70-130); Calcium 7.6 mg/dL (7.8-10.44); Carbon Dioxide 22 mmol/L (22-29); Chloride 98 mmol/L (98-107); Estimated GFR-MDRD Greater than 90; Globulin 3.7 g/dL (2.4-3.5); Glucose 128 mg/dL (70-105); Potassium 3.4 mmol/L (3.5-5.1); Sodium 131 mmol/L (136-145)
[2018-01-16] MEDS ORDERED: Cefepime 2 GM VIAL ONE (13:41)
[2018-01-16 13:46] LABS: Bilirubin Small (Negative); Blood, Urine Negative (Negative); Clarity TURBID (Clear); Glucose, Urine (Dipstick) Negative (Negative); Leukocyte Small (Negative); Nitrite Negative (Negative); Protein, Urine (Dipstick) 30 mg/dL (Neg-Trace); Specific Gravity, Urine 1.029 (1.002-1.036); pH, Urine 5.5 (5.0-9.0)
[2018-01-16 13:50] LABS: RBC/HPF 0-3 HPF (0-3)
[2018-01-16 13:51] LABS: Anisocytosis SLIGHT = 6-15 cells (100X) (0-5/hpf); Eosinophils 2 % (0-10); Lymphocytes 19 % (21-51); MDiff Complete? YES; Microcytosis SLIGHT = 6-15 cells (100X) (0-5/hpf); Monocytes 1 % (0-10); Neutrophil 78 % (42-75); PLT Morphology Comment Appears Increased
[2018-01-16 13:57] LABS: Pathc Cast-AUWi Flag 4.07 (0-2.49)
[2018-01-16] MEDS ORDERED: Acetaminophen 325 MG TAB ONE (14:05)
[2018-01-16 14:08] LABS: Bacteria/HPF 2+ HPF (None Seen); Crystals/HPF 2+ AMORPH URATES HPF (Negative); Hyaline Casts/LPF NONE SEEN LPF (0-3 Hyaline); Manual Microscopic Reviewed? No Path Casts Seen; Renal Epithelial None Seen HPF (0-3); Transitional Epithelial NONE SEEN HPF (0-3)
[2018-01-16] MEDS ORDERED: Lorazepam 2 MG/ML VIAL SLOW IVP PRN (16:51)
[2018-01-16 17:27] LABS: Lactic Acid 1.7 mmol/L (0.5-2.2)
[2018-01-16] MEDS: Sodium Chloride 0.9% 1,000 ML IV SCH (17:45)
[2018-01-16 17:53] VITALS: BMI 20.9
[2018-01-16] MEDS: Vancomycin HCl 1 GM in Premix Bag 1 BAG IVPB SCH (21:38)
--- NOTE | 2018-01-16 23:23 | HP ---
DATE OF ADMISSION: 01/16/2018 CHIEF COMPLAINT: Leg pain. 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 The patient was seen early this morning in the emergency room and signed out against medical advice. She returned a few hours later complaining of worsening pain. The patient is refusing to answer any questions. When she represented to this emergency room for care she was febrile with a temperature of 102.1, pulse 121, blood pressure 130/62. She received 2 grams of cefepime, 1 gram of vancomycin, 2 liters of normal saline. She was ordered a unit of blood; however, has refused to have a second IV placed to receive this. Because of her significant cavity in her left buttock, that is draining purulent fluid and sepsis, the hospitalist called for admission. ALLERGIES: Allergies to medications per chart review PENICILLIN. PAST MEDICAL HISTORY: Per chart review, 1. Paraplegia status post accident. 2. Polysubstance abuse with positive amphetamine screening January 08. 3. Bipolar disorder. 4. 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 5. Medical nonadherence. 6. Tobacco abuse. MEDICATIONS: Unobtainable. REVIEW OF SYSTEMS: Unobtainable. PAST SURGICAL HISTORY: From chart review, 1. Spinal surgery. 2. Cholecystectomy in 08/2017. SOCIAL HISTORY: Unknown. The patient says she lives nowhere and has no one to speak for her. FAMILY HISTORY: Unobtainable. PHYSICAL EXAMINATION: VITAL SIGNS: Blood pressure 94/66, pulse 117, respirations 20, temperature 99% on room air. GENERAL: The patient awakens to light touch, wakes up crying. She is not in apparent distress. HEENT: Her pupils are equal and round. Oral mucosa is pink and dry. NECK: Supple, full range of motion. LUNGS: Clear to auscultation bilateral. No audible wheezing, rhonchi, or rales. HEART: Normal S1, S2, regular rate and rhythm, tachycardic, no audible murmurs. ABDOMEN: Soft with present bowel sounds. Nontender, nondistended. SKIN: She has a large cavity of her left buttock/left hip that is currently packed with gauze with surrounding erythema and induration. She has ulcerations of her right lower extremity along the lateral malleolus, as well as other areas of skin with surrounding erythema. NEURO: No lower extremity spontaneous movement c/w paraplegia. PSYCH: crying, raising voice, appears older than stated age. LABORATORY DATA: Today, 1. CBC: 20.9, 5.9, 18.8, 723. 2. Chemistry: 131, 3.4, 98, 22, 10, 0.54, 128. 3. Lactic acid 2.6. 4. Calcium 7.6. 5. Total bilirubin 0.7, AST 22, ALT 16, alkaline phosphatase 126, total protein 6, albumin 2.3. 6. Urine shows present protein, small bilirubin, small leukocyte esterase, 11- 20 white blood cells, squamous cells and present bacteria. 7. Sacrum and coccyx x-ray of 01/08/2018 showed probable loosening of the lumbar spinal hardware, no radiographic evidence for osteomyelitis. 8. Urine drug screen from 08 January - positive for amphetamine and methamphetamine. IMPRESSION: 1. Sepsis secondary to a large cavity in the left buttock/hip with reported osteomyelitis. This infection is worsening since her last admission. 2. Acute on chronic iron deficiency anemia, meeting criteria for transfusion, without overt bleeding. 3. Nonadherence with prior recommendations and treatment and inability to obtain history 4. History of polysubstance abuse and concern for current/recent substance use influencing her behavior. 5. Bipolar disorder. 6. Tobacco abuse. PLAN: 1. Admission to the hospital. 2. Continuing the antibiotics as patient was agreeable to it earlier. Consult General Surgery and Infectious Disease. 3. Blood transfusion if she will allow, currently she is refusing the placement of a second IV, which is the usual process for the hospital. She is not actively bleeding and therefore, we will see if we can help her be more comfortable and then discuss transfusion and second IV placement. Consent signed in the ER. 4. Manage pain. 5. IV fluids, given the elevated lactic acid and sepsis. 6. We will ask MR to help with determining competence/capacity. As she is not answering questions, I am unable to adequately assess this today. It may be related to substance use/abuse, will monitor and re-assess tomorrow. We will also ask palliative care to help assess patient's understanding of current infection and ways to provide support for her. Given the clinical picture, the patient is at great risk of from this iinfection/sepsis, for which she has refused appropriate treatment in the past. If patient is deemed competent, will need to assess for suicidal ideation. We may need the assistance of case management and/or ethics committee for guidance on how to proceed. 7. Deep venous thrombosis prophylaxis. We will use pneumatic compression devices due to current hemoglobin of 5.9. 8. Gastrointestinal prophylaxis not indicated. 9. Code status is presumed FULL. At this moment, patient is not demonstrating capacity for decision making. 10. For lower extremity ulcers, we will ask wound care to evaluate the legs. 11. The patient is at high risk given the current picture, participation in care, putting her at great risk of in the near future. HENRIQUE
[2018-01-17] MEDS: Sodium Chloride 0.9% 1,000 ML IV SCH ×2 (01:30→07:28)
[2018-01-17] MEDS: Vancomycin HCl 1 GM in Premix Bag 1 BAG IVPB SCH ×3 (05:46→16:20)
[2018-01-17] MEDS: Acetaminophen 325 MG TAB PO PRN (07:28)
[2018-01-17] MEDS: Cefepime 2 GM in Sodium Chloride 0.9% 100 ML IVPB SCH ×4 (07:29→22:39)
--- NOTE | 2018-01-17 11:31 | PDOC.PN ---
- Subjective Encounter Start Date: 01/17/18 (f/u sepsis) Encounter Start Time: 11:29 Subjective: Pt is refusing care or answer questions. She is cursing, and states -: that I'm fired and to leave the room. She has refused blood, -: blood draws - Objective Vital Signs & Weight: Vital Signs (12 hours) Temp Pulse Resp BP Pulse Ox 01/17/18 07:37 98.6 F 104 H 18 99/55 L 97 Weight Weight 126 lb 3.2 oz I&O: 01/16/18 01/17/18 01/18/18 06:59 06:59 06:59 Intake Total 3200 Output Total 0 Balance 3200 Result Diagrams: 01/16/18 12:30 01/16/18 12:30 EKG Reviewed by me: Yes (tele - sinus 100's) Phys Exam - Physical Examination Constitutional: NAD able to speak in full sentences, able to move neck from side to side Deviation from normal: unable to assess, simply states that I'm asking dumb questions and demanding that I leave Dx/Plan (1) Sepsis Code(s): A41.9 - SEPSIS, UNSPECIFIED ORGANISM Status: Acute (2) Tobacco abuse Code(s): Z72.0 - TOBACCO USE Status: Chronic (3) Substance abuse Code(s): F19.10 - OTHER PSYCHOACTIVE SUBSTANCE ABUSE, UNCOMPLICATED Status: Chronic (4) Anemia Code(s): D64.9 - ANEMIA, UNSPECIFIED Status: Acute (5) Bipolar 1 disorder Code(s): F31.9 - BIPOLAR DISORDER, UNSPECIFIED Status: Chronic Comment: [facility] recommending inpt psych for intensive evaluation and supervision, currently awaiting [facility] re-evaluation to determine safety of discharge vs need for further supervised care as inpt in psych facility - Plan * Pt refusing to participate in care * she does not demonstrate capacity for understanding the current situation and severity of it, nor does she demonstrate competence to make decisions. She has been at the hospital nearly 24 hours and this behavior is unchanged. * In review of prior hospital notes, pt has done this with multiple providers. * * Lowering IVF and continuing antibiotics * * I contacted [employer] to reassign patient as she has fired me so that another physician can assume care * * I'm requesting an ethics committee opinion on how to proceed. * * dvt prophy - scd's * gi prophy - not indicated * *
[2018-01-17] MEDS ORDERED: Sodium Chloride 0.9% 1,000 ML IV SCH (11:41)
[2018-01-17] MEDS ORDERED: Haloperidol Lactate 5 MG/ML VIAL SLOW IVP PRN (17:37)
--- NOTE | 2018-01-17 17:42 | PDOC.EVN ---
Event Note - Event Note Event Note: called by RN for pt agitation, security in the room - ativan was ordered at admission. Will also order 1 mg ativan and 1 mg haldol both IV prn. Titrate to effect. Awaiting ethics committee assessment and plan with how we can best care for this patient. 18:27 - pt has allowed blood draw and consenting to receive [address] Joe/Neurosurgery consulted to assist with determining competency/capacity. Discussed with Alana Arana and legal team to be notified in the morning, weights and measures sealer to be contacted for court order if 2 physicians deem incompetent - will know more tomorrow. In the meantime will continue to treat agitation, and proceed with plan outlined in h&p yesterday.
[2018-01-17 18:15] LABS: #Eosinphils 0.3 thou/uL (0.0-0.7); #Lymphocytes 2.9 thou/uL (1.20-3.40); #Monocytes 0.6 thou/uL (0.11-0.59); #Neutrophils 6.7 thou/uL (1.40-6.50); %Basophils 0.4 % (0.0-1.0); %Eosinophils 2.6 % (0.0-10.0); %Lymphocytes 27.5 % (21.0-51.0); %Monocytes 5.6 % (0.0-10.0); %Neutrophils 63.9 % (42.0-75.0); Hemoglobin 6.8 g/dL (12.0-16.0); Mean Corpuscular HGB CONC 30.1 g/dL (32.0-36.0); Mean Corpuscular Hemoglobin 24.5 pg (27.0-31.0); Mean Corpuscular Volume 81.2 fL (78.0-98.0); Mean Platelet Volume 4.9 fL (7.4-10.4); Platelet Count 775 thou/uL (130-400); RBC Distribution Width 17.6 % (11.5-14.5); Red Blood Cell (RBC) Count 2.76 mill/uL (4.20-5.40); White Blood Cell (WBC) Count 10.5 thou/uL (4.8-10.8)
--- NOTE | 2018-01-17 18:22 | CON ---
DATE OF SERVICE: 01/17/2018 REASON FOR CONSULTATION: Assessment of capacity to make medical decisions. HISTORY OF PRESENT ILLNESS: Ms. Boyd is a 22-year-old female with a complex medical and psychosocial history. She presents with severe buttock region pain with evidence of a large ulcerated cavity along the left buttock and hip consistent with osteomyelitis. This is also a purulent area. Of note, she also has low hemoglobin with a background of acute on chronic iron deficiency anemia. She was admitted for medical management with likely recommendation toward debridement. Her mental and cognitive state however have been such that we have not been able to administer in a meaningful way any medical and/or surgical treatments. I tried to meet with her in a room and she is screaming and yelling and refuses to have a meaningful conversation. I tried to indicate to her that she has serious medical conditions that could compromise her ability to leave the hospital and may very well lead to . She has no interest in maintaining a meaningful conversation with respect to her treatment options. It is my view that she is likely incompetent and incapable of making decisions, which are in her best interest with respect to her medical care. I believe she would be best suited to undergo a judicial evaluation for competence. Dr. Agata Paulino from our Hospitalist Service as well as an Ethics Committee have met. We have also had [facility] try to visit with her. She is currently estranged from family members and has not given permission to allow us to contact those family members. Our next plan of action will be to determine competency via the legal system. HENRIQUE
[2018-01-17 18:34] LABS: Anion Gap 9 mmol/L (10-20); BUN (Urea Nitrogen) 7 mg/dL (7.0-18.7); Calc. Creatinine Clearance 182 mL/min (70-130); Calcium 7.5 mg/dL (7.8-10.44); Carbon Dioxide 24 mmol/L (22-29); Chloride 110 mmol/L (98-107); Estimated GFR-MDRD Greater than 90; Glucose 108 mg/dL (70-105); Potassium 3.2 mmol/L (3.5-5.1); Sodium 140 mmol/L (136-145)
[2018-01-17] MEDS ORDERED: Potassium Chloride 20 MEQ TAB PO SCH (19:00)
--- NOTE | 2018-01-17 19:03 | PDOC.EVN ---
Event Note - Event Note Event Note: Discussed care with [place]/Palliative care who reports pt has responded well to IV ativan, she is agreeable with treatment and currently receiving blood. Will schedule some low dose ativan PO to see if this helps with mood/agitation - pt can refuse. The goal is to manage agitation only - as mood described now is participating in care.
[2018-01-17] MEDS: NS 0.9% w/ 20 MEQ KCL 1,000 ML/1,000 ML BAG IV SCH (23:44)
[2018-01-18] MEDS: Lorazepam 0.5 MG TAB PO SCH ×5 (00:28→23:20)
[2018-01-18] MEDS: Vancomycin HCl 1 GM in Premix Bag 1 BAG IVPB SCH ×2 (02:03→08:50)
--- NOTE | 2018-01-18 02:19 | CON ---
DATE OF CONSULTATION: 01/17/2018 REASON FOR CONSULTATION: Infected left ischial decubitus ulcer. HISTORY: Ms. 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 She refused operative debridement or admission for long-term antibiotics and wound care, and was discharged home on oral antibiotics. She returned to the hospital on 2017 and signed out AMA, but then came back a few hours later complaining of worsening pain. In the emergency room, she was found to have a heart rate of 121 and a temperature of 102 and received IV an tibiotics. She was found to be severely anemic, but refused transfusion. When I saw the patient, roseanna abbott had been admitted to the telemetry magu[place], but was still refusing transfusion. Initially, she refuse d to see me, but then agreed to be examined partially. History is through a chart review and previou s admissions as the patient is currently noncommunicative except to earnest at her nurses. PAST MEDICAL HISTORY: Paraplegia, polysubstance abuse, bipolar disorder, medical nonadherence, press ure decubitus ulcers, and ongoing tobacco and methamphetamine abuse. ALLERGIES: She has a reported allergy to PENICILLIN, did not supply a medication list and was not co operative with review of systems. FAMILY HISTORY: Noncontributory. PAST SURGICAL HISTORY: Includes spinal surgery, cholecystectomy in August. SOCIAL HISTORY: Positive for tobacco and methamphetamine abuse, although the patient has denied this even while testing positive. She is apparently homeless and moves around living with friends and ac quaintances. PHYSICAL EXAMINATION: VITAL SIGNS: The patient has been afebrile since her admission. Heart rate 105, respirations 16, bl ood pressure 95/51, 98% saturated on room air. GENERAL: A thin woman in no acute distress, although agitated and noncommunicative. Only a partial examination was able to be performed before the patient refused to be further examined. HEART: Tachycardic, but regular. LUNGS: Fairly clear. ABDOMEN: She denied any abdominal tenderness and her left hip wound was stable compared with her [facility] admission with a large amount of purulent drainage on the dressing and a ridge of exposed jagged alida ne in the base of the wound. She has dense paraplegia. PSYCHIATRIC: Remarkable for almost no insight into her disease process and multiple expressed parano id delusions including that she is in an animal hospital and that I am going to amputate her leg. LABORATORY DATA: White count is 10.5, hematocrit 22.4, and platelet 775. C-reactive protein is 19.3 3, albumin is 2.3, potassium 3.2. Chest x-ray showed no acute process. ASSESSMENT: Stage 4 left ischial decubitus ulcer with exposed bone and purulent drainage from the wo unds. The patient has adamantly refused any debridements of the wound, stating that if I touch her b one, it will lead to an amputation. I explained that this is a part of her body that is not amenable to amputation and that debridement is standard treatment to allow the antibiotics to work better on healthier bone, which has not already been destroyed by the infectious process. I explained again as I have in the past that we will not do anything without her consent, but that if she does not procee d with aggressive treatment of this infectious process, it is likely to lead to repeated bouts of sep sis and ultimately . Unfortunately, the patient has persisted in making poor medical choices wh ich are driven not by rational understanding of the circumstances, but by paranoia and anger regardin g her diagnosis. If she is not amenable to ongoing wound care and antibiotics, then surgical debride ment in and of itself will be inadequate to treat this disease process and ultimately futile. Unfort unately, I believe that unless this patient receives treatment of her underlying psychiatric problems , she is likely to continue to refuse treatment and ultimately perish of this process.
--- NOTE | 2018-01-18 02:46 | PRG ---
DATE OF SERVICE: 01/17/2018 SUBJECTIVE: Ms. Boyd has been readmitted, as we had previously reported. She has experienced complications related to paraplegia as well as her bipolar disorder and has had refractory stage 4 decubitus ulcer with quite aggressive inflammatory changes in the left ischial area wrapping towards the perineum on the left side. She has had multiple admissions and then has been refractory to any major intervention to fix this problem related to her psychiatric disorder. She appears to have some element of paranoia and delusional thinking process. At this time, she is readmitted and she came to the emergency room and then left and then came back and now she has obvious inflammatory process with necrotic features in the gluteal region of left side, wrapping around towards the perineum and ischial area. OBJECTIVE: VITAL SIGNS: Temperature has been normal, blood pressure 116/60, respiratory rate 16, O2 sat 98%. SKIN: Shows this round-shaped ulcerated area in the left ischial region measuring about 7 cm x 6 cm. Some of that is packed, she does have areas of ulceration in the more rectangular shaped in the lateral aspect of the left foot and leg. She has other shallower ulcerations on the right side and ischial region and gluteal region. I could not examine her, because she declined exam. LABORATORY DATA: White cell count 20,000 down to 10,500, hemoglobin 5.9 to 6.8 , platelets 723. No radiology studies are available other than chest x-ray. The chest x-ray did not show any major abnormalities. ASSESSMENT: It is again that she has the psychiatric illness that needs to be treated properly to allow access and proper interventions including surgical debridement and imaging studies, antibiotic treatment in the usual standard approach to this kind of problem. Evidently, she will need a full exam and this will have probably determination of her ability to make decisions. I think that steps have been initiated to establish the lack of ability to make those decisions for self with high likelihood of harm. HENRIQUE
[2018-01-18] MEDS: Cefepime 2 GM in Sodium Chloride 0.9% 100 ML IVPB SCH ×4 (08:01→23:17)
[2018-01-18] MEDS: NS 0.9% w/ 20 MEQ KCL 1,000 ML/1,000 ML BAG IV SCH (08:55)
[2018-01-18] MEDS: Linezolid 600 MG in Premix Bag 1 BAG IVPB SCH ×2 (11:08→20:37)
--- NOTE | 2018-01-18 11:59 | PDOC.EVN ---
Event Note - Event Note Event Note: Went to round on patient with Radha/RN - pt again refusing to speak with me. Per Radha, lung sounds are diminished on left side - IVF d/c. Radha will check with Residency program on assuming care for this complicated patient. Will cover any urgent or emergent needs until care assumed by another provider. Dr. Pan from [facility] is assuming care.
--- NOTE | 2018-01-18 17:01 | RAD ---
CHEST ONE VIEW: HISTORY: Cough. COMPARISON: 01/16/2018 FINDINGS: The cardiac silhouette is magnified by projection. The pulmonary vasculature is slightly engorged wi th reticulonodular interstitial prominence, most pronounced at the lung bases. A small amount of matthieu ateral pleural fluid. The mediastinum is midline with postoperative changes of the thoracolumbar spi ne. No lobar consolidation or evidence of pneumothorax. IMPRESSION: Bibasilar infiltrates and bilateral pleural fluid, favored to be related to pulmonary vascular conges tion. POS: ISELA
[2018-01-18] MEDS ORDERED: Divalproex Sodium 125 mg Sprinkle Capsule PO SCH (22:30)
[2018-01-18] MEDS ORDERED: Potassium Chloride 20 MEQ TAB PO SCH (22:30)
--- NOTE | 2018-01-18 23:31 | PDOC.GSPN ---
Surgery Progress Note: Subj - Subjective Narrative: Pt was again verbally abusive and hostile, refusing all surgical treatment as unnecessary. Spoke w WCT regarding wound care options. I recommend Medihoney and VAC, but pt refuses any wound care except wet to dry, and will not permit adequate packing. Dressings rapidly saturate, putting her at risk for further skin breakdown. I am signing off. Pt persists in a delusional paranoid belief that her wounds were caused by wound care and that her medical providers intend her harm. Surgery Progress Note: Obj - Vital signs Vital signs: Vital Signs - Most Recent Temp Pulse Resp BP Pulse Ox 98.9 F 116 H 16 104/56 L 98 01/18/18 22:50 01/18/18 22:50 01/18/18 22:50 01/18/18 22:50 01/18/18 22:50 Surgery Progress Note: Results - Labs Result Diagrams: 01/17/18 18:05 01/17/18 18:05
[2018-01-19] MEDS: Cefepime 2 GM in Sodium Chloride 0.9% 100 ML IVPB SCH (06:18)
[2018-01-19] MEDS: Lorazepam 0.5 MG TAB PO SCH ×2 (06:22→14:40)
--- NOTE | 2018-01-19 07:46 | PDOC.PN ---
- Subjective Encounter Start Date: 01/18/18 Encounter Start Time: 15:00 Patient seen and examined by me with nurse in the room. Patient initially refused to see me. Patient states that she is tired of people just coming into her room. Nurse was able to convince patient. Patient was not willing to answer and questions. - Objective MAR Reviewed: Yes Vital Signs & Weight: Vital Signs (12 hours) Temp Pulse Resp BP Pulse Ox 01/18/18 23:00 98.9 F 116 H 16 98 01/18/18 22:50 98.9 F 116 H 16 104/56 L 98 01/18/18 20:00 99.4 F 108 H 18 Weight Admit Weight 125 lb 8 oz Weight 126 lb 3.2 oz I&O: 01/18/18 01/19/18 01/20/18 06:59 06:59 06:59 Intake Total 3671 2125 Balance 3671 2125 Result Diagrams: 01/17/18 18:05 01/17/18 18:05 Phys Exam - Physical Examination HEENT: PERRLA, moist MMs Neck: no JVD Respiratory: no wheezing reduced lung sounds at the lung bases bilaterally. Mainly at the right. Cardiovascular: RRR, no significant murmur, no rub Gastrointestinal: soft, non-tender Musculoskeletal: edema present Patient is not able to walk. Patient is hemiplegic. Deviation from normal: combative, paranoia, mood unstable, flat affect. Deviation from normal: Stage 4 scral Decub, Leg abrasion noted with ulcerations Dx/Plan (1) Sepsis Code(s): A41.9 - SEPSIS, UNSPECIFIED ORGANISM Status: Acute Comment: On antibiotics and ID is on the case. Patient sepsis is due to ULcers. Will continue current care. (2) Anemia Code(s): D64.9 - ANEMIA, UNSPECIFIED Status: Acute Qualifiers: Anemia type: other cause Comment: thao 2/2 to chronic inflammation. patient is refusing lab draws. Currently H/H is 6.8 will start Iron pills with Vit C. Will continue to monito H /H if patient allow us to treat. (3) Decubitus ulcer, stage 4 Code(s): L89.94 - PRESSURE ULCER OF UNSPECIFIED SITE, STAGE 4 Status: Acute Comment: ID and surgery on consult. Patient is very abusive verbally and is refusing antibiotics and wound care. Will continue to convince patient that antibiotics is for her benefit and will help heal her ulcers. (4) Substance abuse Code(s): F19.10 - OTHER PSYCHOACTIVE SUBSTANCE ABUSE, UNCOMPLICATED Status: Chronic (5) Tobacco abuse Code(s): Z72.0 - TOBACCO USE Status: Chronic (6) Anxiety Code(s): F41.9 - ANXIETY DISORDER, UNSPECIFIED Status: Chronic Comment: Currently very anxious. patient is receiving ativan for anxiety (7) Bipolar 1 disorder Code(s): F31.9 - BIPOLAR DISORDER, UNSPECIFIED Status: Chronic Comment: Patient will benefit from inpt psych for intensive evaluation and supervision, currently awaiting [facility] re-evaluation to determine safety of discharge vs need for further supervised care as inpt in psych facility. Started patient on mood stabilizer of Depakote sprinkles. (8) Decubitus ulcers Code(s): L89.90 - PRESSURE ULCER OF UNSPECIFIED SITE, UNSPECIFIED STAGE Status : Chronic Comment: Several ulcers on L hip, and Lower extremities. ankles, WCT for local care (9) Depression Code(s): F32.9 - MAJOR DEPRESSIVE DISORDER, SINGLE EPISODE, UNSPECIFIED Status : Chronic Comment: Will medically optimise patient and have [facility] see the patient. 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 Effusion likely due to parapnuemonic effusion. Will monitor at this time. - Plan * . Review of Systems - Review of Systems Respiratory: Cough, Dry Skin: Rash, Lesions - Medications/Allergies Allergies/Adverse Reactions: Allergies Allergy/AdvReac Type Severity Reaction Status Date / Time Penicillins Allergy Unknown Verified 08/17/17 22:02 Medications: Current Medications Acetaminophen (Tylenol) 650 mg PO Q6H PRN PRN Reason: Headache/Fever or Pain Last Admin: 01/17/18 07:28 Dose: 650 mg Divalproex Sodium (Depakote Sprinkle) 125 mg PO BID JOSH Haloperidol Lactate (Haldol) 1 mg SLOW IVP Q4H PRN PRN Reason: Agitation Cefepime HCl 2 gm/ Sodium (Chloride) 100 mls @ 200 mls/hr IVPB Q8HR [facility] Last Admin: 01/19/18 06:18 Dose: 100 mls Linezolid 600 mg/ Device 300 mls @ 150 mls/hr IVPB Q12HR [facility] Last Admin: 01/18/18 20:37 Dose: 300 mls Lorazepam (Ativan) 0.5 mg SLOW IVP Q6H PRN PRN Reason: Anxiety/Agitation Last Admin: 01/17/18 17:40 Dose: 0.5 mg Lorazepam (Ativan) 1 mg SLOW IVP Q4H PRN PRN Reason: Anxiety/Agitation Lorazepam (Ativan) 0.5 mg PO Q8HR [facility] Last Admin: 01/19/18 06:22 Dose: Not Given Sodium Chloride (Flush - Normal Saline) 10 ml IVF PRN PRN PRN Reason: Saline Flush
[2018-01-19] MEDS: Divalproex Sodium 125 mg Sprinkle Capsule PO SCH ×2 (09:22→21:19)
[2018-01-19] MEDS: Ascorbic Acid 500 mg Chewable Tablet PO SCH (09:22)
[2018-01-19] MEDS: Linezolid 600 MG in Premix Bag 1 BAG IVPB SCH ×2 (12:33→21:16)
[2018-01-19 12:50] LABS: #Eosinphils 0.3 thou/uL (0.0-0.7); #Lymphocytes 2.6 thou/uL (1.20-3.40); #Monocytes 0.5 thou/uL (0.11-0.59); #Neutrophils 6.1 thou/uL (1.40-6.50); %Basophils 0.3 % (0.0-1.0); %Eosinophils 3.3 % (0.0-10.0); %Lymphocytes 27.1 % (21.0-51.0); %Monocytes 5.5 % (0.0-10.0); %Neutrophils 63.8 % (42.0-75.0); Hemoglobin 7.2 g/dL (12.0-16.0); Mean Corpuscular HGB CONC 31.2 g/dL (32.0-36.0); Mean Corpuscular Hemoglobin 25.5 pg (27.0-31.0); Mean Corpuscular Volume 81.7 fL (78.0-98.0); Mean Platelet Volume 4.9 fL (7.4-10.4); Platelet Count 736 thou/uL (130-400); RBC Distribution Width 17.4 % (11.5-14.5); Red Blood Cell (RBC) Count 2.83 mill/uL (4.20-5.40); White Blood Cell (WBC) Count 9.6 thou/uL (4.8-10.8)
[2018-01-19 13:11] LABS: Anion Gap 12 mmol/L (10-20); BUN (Urea Nitrogen) 6 mg/dL (7.0-18.7); Calc. Creatinine Clearance 167 mL/min (70-130); Calcium 7.5 mg/dL (7.8-10.44); Carbon Dioxide 24 mmol/L (22-29); Chloride 107 mmol/L (98-107); Estimated GFR-MDRD Greater than 90; Glucose 88 mg/dL (70-105); Magnesium 1.9 mg/dL (1.6-2.6); Potassium 4.3 mmol/L (3.5-5.1); Sodium 139 mmol/L (136-145)
[2018-01-19] MEDS ORDERED: Ziprasidone 20 MG VIAL IM PRN (14:21)
[2018-01-19] MEDS: cefTRIAXone\\ROCEPHIN 2 GM in Sodium Chloride 0.9% 100 ML IVPB SCH (15:05)
[2018-01-19] MEDS: Lorazepam 2 MG/ML VIAL SLOW IVP PRN (15:05)
--- NOTE | 2018-01-19 16:03 | PRG ---
DATE OF SERVICE: 01/19/2018 Ms. Boyd is still refusing to be examined, refusing treatment. Vital signs have improved with less t achycardia. She is still afebrile. She did not allow me to examine her. The white cell count showed improvement to 9.6 with antimicrobials. IV fluid repletion. She has hilary te prominent anemia, probably from chronic inflammatory process and an elevated platelet count. The chest x-ray was completed and it showed bibasilar infiltrates, probably from the inflammatory process , but have been bacteremic. She has declined surgical intervention and a consultation with the ethic s committee has been made and it was the impression that she was probably incompetent and incapable o f making decisions and therefore, judicial evaluation has been started. The cultures have been revie wed and most likely we can discontinue linezolid when the final results are available. In the meanti me, continue with ceftriaxone and wait on the final results of cultures.
[2018-01-19] MEDS: Ferrous Sulfate 325 MG TAB PO SCH (16:50)
[2018-01-19] MEDS: Potassium Chloride 20 MEQ in Premix Bag 1 BAG IVPB SCH ×2 (16:50→23:12)
[2018-01-20] MEDS: Linezolid 600 MG in Premix Bag 1 BAG IVPB SCH ×2 (09:38→21:21)
[2018-01-20] MEDS: Divalproex Sodium 125 mg Sprinkle Capsule PO SCH ×2 (10:16→21:21)
[2018-01-20] MEDS: Ferrous Sulfate 325 MG TAB PO SCH ×2 (10:16→15:45)
[2018-01-20] MEDS: Ascorbic Acid 500 mg Chewable Tablet PO SCH (10:16)
[2018-01-20] MEDS ORDERED: Iron Sucrose Complex 200 MG in Sodium Chloride 0.9% 250 ML 250 ML IVPB SCH (11:00)
[2018-01-20] MEDS ORDERED: Sodium Ferric Gluconate 250 MG, Admixture Fee 1 EACH in Sodium Chloride 0.9% 250 ML 250 ML IVPB SCH (11:15)
[2018-01-20] MEDS: cefTRIAXone\\ROCEPHIN 2 GM in Sodium Chloride 0.9% 100 ML IVPB SCH (14:11)
[2018-01-20] MEDS: Lorazepam 2 MG/ML VIAL SLOW IVP PRN ×2 (14:13→21:22)
[2018-01-20 14:44] LABS: Hemoglobin 7.9 g/dL (12.0-16.0); Mean Corpuscular HGB CONC 30.9 g/dL (32.0-36.0); Mean Corpuscular Hemoglobin 25.7 pg (27.0-31.0); Mean Corpuscular Volume 83.2 fL (78.0-98.0); Mean Platelet Volume 4.8 fL (7.4-10.4); Platelet Count 740 thou/uL (130-400); RBC Distribution Width 18.5 % (11.5-14.5); Red Blood Cell (RBC) Count 3.07 mill/uL (4.20-5.40)
[2018-01-20 15:00] LABS: Anion Gap 12 mmol/L (10-20); BUN (Urea Nitrogen) 6 mg/dL (7.0-18.7); Calc. Creatinine Clearance 145 mL/min (70-130); Calcium 8.1 mg/dL (7.8-10.44); Carbon Dioxide 28 mmol/L (22-29); Chloride 102 mmol/L (98-107); Estimated GFR-MDRD Greater than 90; Glucose 115 mg/dL (70-105); Magnesium 1.8 mg/dL (1.6-2.6); Sodium 138 mmol/L (136-145)
--- NOTE | 2018-01-20 18:28 | PDOC.PN ---
- Subjective Encounter Start Date: 01/19/18 Encounter Start Time: 13:00 Seen this Am. patient refusing physicals exams today. - Objective MAR Reviewed: Yes Vital Signs & Weight: Vital Signs (12 hours) Temp Pulse Resp BP Pulse Ox 01/20/18 11:24 98.4 F 104 H 16 90/46 L 100 01/20/18 08:00 98.0 F 98 16 98 01/20/18 07:49 98.0 F 98 16 96/56 L 98 Weight Admit Weight 125 lb 8 oz Weight 126 lb 3.2 oz I&O: 01/19/18 01/20/18 01/21/18 06:59 06:59 06:59 Intake Total 5 Balance 2125 Result Diagrams: 01/20/18 14:33 01/20/18 14:33 Phys Exam - Physical Examination Constitutional: NAD (refused rest of physical exams.) Dx/Plan (1) Bipolar 1 disorder Code(s): F31.9 - BIPOLAR DISORDER, UNSPECIFIED Status: Chronic Comment: Patient will benefit from inpt psych for intensive evaluation and supervision, currently awaiting [facility] re-evaluation to determine safety of discharge vs need for further supervised care as inpt in psych facility. Started patient on mood stabilizer of Depakote sprinkles however patient refusing. spoke to psychiatrist. Patient is put on respiradone and ativan. (2) Sepsis Code(s): A41.9 - SEPSIS, UNSPECIFIED ORGANISM Status: Resolved Comment: On antibiotics and ID is on the case. Patient sepsis is due to ULcers. Will continue current care. (3) Anemia Code(s): D64.9 - ANEMIA, UNSPECIFIED Status: Acute Qualifiers: Anemia type: other cause Comment: will start venofer (4) Decubitus ulcer, stage 4 Code(s): L89.94 - PRESSURE ULCER OF UNSPECIFIED SITE, STAGE 4 Status: Acute Comment: ID and surgery on consult. Patient is very abusive verbally and is refusing antibiotics and wound care. Will continue to convince patient that antibiotics is for her benefit and will help heal her ulcers. (5) Substance abuse Code(s): F19.10 - OTHER PSYCHOACTIVE SUBSTANCE ABUSE, UNCOMPLICATED Status: Chronic (6) Tobacco abuse Code(s): Z72.0 - TOBACCO USE Status: Chronic (7) Anxiety Code(s): F41.9 - ANXIETY DISORDER, UNSPECIFIED Status: Chronic Comment: Currently very anxious. patient is receiving ativan for anxiety (8) Decubitus ulcers Code(s): L89.90 - PRESSURE ULCER OF UNSPECIFIED SITE, UNSPECIFIED STAGE Status : Chronic Comment: Several ulcers on L hip, and Lower extremities. ankles, WCT for local care (9) Depression Code(s): F32.9 - MAJOR DEPRESSIVE DISORDER, SINGLE EPISODE, UNSPECIFIED Status : Chronic Comment: Will medically optimise patient and have MHMR see the patient. 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 Effusion likely due to parapnuemonic effusion. Will monitor at this time. - Plan * . Review of Systems - Review of Systems Constitutional: negative: fever, chills, sweats, weakness, malaise, other Eyes: negative: Pain, Vision Change, Conjunctivae Inflammation, Eyelid Inflammation, Redness, Other ENT: negative: Ear Pain, Ear Discharge, Nose Pain, Nose Discharge, Nose Congestion, Mouth Pain, Mouth Swelling, Throat Pain, Throat Swelling, Other Respiratory: negative: Cough, Dry, Shortness of Breath, Hemoptysis, SOB with Excertion, Pleuritic Pain, Sputum, Wheezing Cardiovascular: negative: chest pain, palpitations, orthopnea, paroxysmal nocturnal dyspnea, edema, light headedness, other Gastrointestinal: negative: Nausea, Vomiting, Abdominal Pain, Diarrhea, Constipation, Melena, Hematochezia, Other Genitourinary: negative: Dysuria, Frequency, Incontinence, Hematuria, Retention , Other Musculoskeletal: negative: Neck Pain, Shoulder Pain, Arm Pain, Back Pain, Hand Pain, Leg Pain, Foot Pain, Other Skin: negative: Rash, Lesions, Juan Miguel, Bruising, Other Neurological: negative: Weakness, Numbness, Incoordination, Change in Speech, Confusion, Seizures, Other - Medications/Allergies Allergies/Adverse Reactions: Allergies Allergy/AdvReac Type Severity Reaction Status Date / Time Penicillins Allergy Unknown Verified 08/17/17 22:02 Medications: Current Medications Acetaminophen (Tylenol) 650 mg PO Q6H PRN PRN Reason: Headache/Fever or Pain Last Admin: 01/17/18 07:28 Dose: 650 mg Ascorbic Acid (Vitamin C) 500 mg PO DAILY [facility] Last Admin: 01/20/18 10:16 Dose: Not Given Divalproex Sodium (Depakote Sprinkle) 125 mg PO BID [facility] Last Admin: 01/20/18 21:21 Dose: Not Given Ferrous Sulfate (Feosol) 325 mg PO BID-[facility] Last Admin: 01/20/18 15:45 Dose: Not Given Linezolid 600 mg/ Device 300 mls @ 150 mls/hr IVPB Q12HR [facility] Last Admin: 01/20/18 21:21 Dose: 300 mls Ceftriaxone Sodium 2 gm/ (Sodium Chloride) 100 mls @ 200 mls/hr IVPB Q24HR [facility] Last Admin: 01/20/18 14:11 Dose: 100 mls Lorazepam (Ativan) 0.5 mg SLOW IVP Q6H PRN PRN Reason: Anxiety/Agitation Last Admin: 01/17/18 17:40 Dose: 0.5 mg Lorazepam (Ativan) 1 mg SLOW IVP Q4H PRN PRN Reason: Anxiety/Agitation Last Admin: 01/20/18 21:22 Dose: 1 mg Sodium Chloride (Flush - Normal Saline) 10 ml IVF PRN PRN PRN Reason: Saline Flush Ziprasidone (Geodon) 20 mg IM Q4H PRN PRN Reason: Agitation
--- NOTE | 2018-01-20 18:29 | PDOC.PN ---
- Subjective Encounter Start Date: 01/20/18 Encounter Start Time: 14:05 Patient seen and examined this morning with nurse in the room. patient is a lot cooperative today. States that she is feeling well and has no complaint. Told me that she allowed blood draw. - Objective MAR Reviewed: Yes Vital Signs & Weight: Vital Signs (12 hours) Temp Pulse Resp BP Pulse Ox 01/20/18 11:24 98.4 F 104 H 16 90/46 L 100 01/20/18 08:00 98.0 F 98 16 98 01/20/18 07:49 98.0 F 98 16 96/56 L 98 Weight Admit Weight 125 lb 8 oz Weight 126 lb 3.2 oz I&O: 01/19/18 01/20/18 01/21/18 06:59 06:59 06:59 Intake Total 2124 Balance 2124 Result Diagrams: 01/20/18 14:33 01/20/18 14:33 Dx/Plan (1) Bipolar 1 disorder Code(s): F31.9 - BIPOLAR DISORDER, UNSPECIFIED Status: Chronic Comment: Patient will benefit from inpt psych for intensive evaluation and supervision, currently awaiting [facility] re-evaluation to determine safety of discharge vs need for further supervised care as inpt in psych facility. Started patient on mood stabilizer of Depakote sprinkles however patient refusing. spoke to psychiatrist. Patient is put on respiradone and ativan. (2) Anemia Code(s): D64.9 - ANEMIA, UNSPECIFIED Status: Acute Qualifiers: Anemia type: other cause Comment: will start venofer (3) Sepsis Code(s): A41.9 - SEPSIS, UNSPECIFIED ORGANISM Status: Resolved Comment: On antibiotics and ID is on the case. Patient sepsis is due to ULcers. Will continue current care. (4) Decubitus ulcer, stage 4 Code(s): L89.94 - PRESSURE ULCER OF UNSPECIFIED SITE, STAGE 4 Status: Acute Comment: ID and surgery on consult. Patient is very abusive verbally and is refusing antibiotics and wound care. Will continue to convince patient that antibiotics is for her benefit and will help heal her ulcers. (5) Substance abuse Code(s): F19.10 - OTHER PSYCHOACTIVE SUBSTANCE ABUSE, UNCOMPLICATED Status: Chronic (6) Tobacco abuse Code(s): Z72.0 - TOBACCO USE Status: Chronic (7) Anxiety Code(s): F41.9 - ANXIETY DISORDER, UNSPECIFIED Status: Chronic Comment: Currently very anxious. patient is receiving ativan for anxiety (8) Decubitus ulcers Code(s): L89.90 - PRESSURE ULCER OF UNSPECIFIED SITE, UNSPECIFIED STAGE Status : Chronic Comment: Several ulcers on L hip, and Lower extremities. ankles, WCT for local care (9) Depression Code(s): F32.9 - MAJOR DEPRESSIVE DISORDER, SINGLE EPISODE, UNSPECIFIED Status : Chronic Comment: Will medically optimise patient and have MHMR see the patient. 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 Effusion likely due to parapnuemonic effusion. Will monitor at this time. - Plan * . Review of Systems - Review of Systems Constitutional: negative: fever, chills, sweats, weakness, malaise, other Eyes: negative: Pain, Vision Change, Conjunctivae Inflammation, Eyelid Inflammation, Redness, Other ENT: negative: Ear Pain, Ear Discharge, Nose Pain, Nose Discharge, Nose Congestion, Mouth Pain, Mouth Swelling, Throat Pain, Throat Swelling, Other Respiratory: negative: Cough, Dry, Shortness of Breath, Hemoptysis, SOB with Excertion, Pleuritic Pain, Sputum, Wheezing Cardiovascular: negative: chest pain, palpitations, orthopnea, paroxysmal nocturnal dyspnea, edema, light headedness, other Gastrointestinal: negative: Nausea, Vomiting, Abdominal Pain, Diarrhea, Constipation, Melena, Hematochezia, Other Genitourinary: negative: Dysuria, Frequency, Incontinence, Hematuria, Retention , Other Musculoskeletal: negative: Neck Pain, Shoulder Pain, Arm Pain, Back Pain, Hand Pain, Leg Pain, Foot Pain, Other Skin: negative: Rash, Lesions, Juan Miguel, Bruising, Other Neurological: negative: Weakness, Numbness, Incoordination, Change in Speech, Confusion, Seizures, Other - Medications/Allergies Allergies/Adverse Reactions: Allergies Allergy/AdvReac Type Severity Reaction Status Date / Time Penicillins Allergy Unknown Verified 08/17/17 22:02 Medications: Current Medications Acetaminophen (Tylenol) 650 mg PO Q6H PRN PRN Reason: Headache/Fever or Pain Last Admin: 01/17/18 07:28 Dose: 650 mg Ascorbic Acid (Vitamin C) 500 mg PO DAILY [facility] Last Admin: 01/20/18 10:16 Dose: Not Given Divalproex Sodium (Depakote Sprinkle) 125 mg PO BID [facility] Last Admin: 01/20/18 21:21 Dose: Not Given Ferrous Sulfate (Feosol) 325 mg PO BID-[facility] Last Admin: 01/20/18 15:45 Dose: Not Given Linezolid 600 mg/ Device 300 mls @ 150 mls/hr IVPB Q12HR [facility] Last Admin: 01/20/18 21:21 Dose: 300 mls Ceftriaxone Sodium 2 gm/ (Sodium Chloride) 100 mls @ 200 mls/hr IVPB Q24HR [facility] Last Admin: 01/20/18 14:11 Dose: 100 mls Lorazepam (Ativan) 0.5 mg SLOW IVP Q6H PRN PRN Reason: Anxiety/Agitation Last Admin: 01/17/18 17:40 Dose: 0.5 mg Lorazepam (Ativan) 1 mg SLOW IVP Q4H PRN PRN Reason: Anxiety/Agitation Last Admin: 01/20/18 21:22 Dose: 1 mg Sodium Chloride (Flush - Normal Saline) 10 ml IVF PRN PRN PRN Reason: Saline Flush Ziprasidone (Geodon) 20 mg IM Q4H PRN PRN Reason: Agitation
[2018-01-21] MEDS: Ferrous Sulfate 325 MG TAB PO SCH ×2 (08:51→16:38)
[2018-01-21] MEDS: Divalproex Sodium 125 mg Sprinkle Capsule PO SCH ×2 (08:51→21:13)
[2018-01-21] MEDS: Ascorbic Acid 500 mg Chewable Tablet PO SCH (08:51)
[2018-01-21] MEDS: Linezolid 600 MG in Premix Bag 1 BAG IVPB SCH (09:17)
[2018-01-21] MEDS: cefTRIAXone\\ROCEPHIN 2 GM in Sodium Chloride 0.9% 100 ML IVPB SCH (15:31)
--- NOTE | 2018-01-21 16:13 | PDOC.PN ---
- Subjective Encounter Start Date: 01/21/18 Encounter Start Time: 16:10 Subjective: paranoid, hostile , refusing to answer any question or allow PE - Objective Vital Signs & Weight: Vital Signs (12 hours) Temp Pulse Resp BP BP Pulse Ox 01/21/18 15:48 98.7 F 114 H 20 116/71 100 01/21/18 08:00 98.2 F 107 H 18 88/50 L 98 Weight Admit Weight 125 lb 8 oz Weight 126 lb 3.2 oz I&O: 01/20/18 01/21/18 01/22/18 06:59 06:59 06:59 Intake Total 790 Balance 790 Result Diagrams: 01/20/18 14:33 01/20/18 14:33 Dx/Plan (1) Substance abuse Code(s): F19.10 - OTHER PSYCHOACTIVE SUBSTANCE ABUSE, UNCOMPLICATED Status: Chronic (2) Tobacco abuse Code(s): Z72.0 - TOBACCO USE Status: Chronic (3) Decubitus ulcer, stage 4 Code(s): L89.94 - PRESSURE ULCER OF UNSPECIFIED SITE, STAGE 4 Status: Chronic Qualifiers: Pressure injury location: contiguous region involving buttock and hip Laterality: left Qualified Code(s): L89.44 - Pressure ulcer of contiguous site of back, buttock and hip, stage 4 Comment: ID and surgery on consult. Patient is very abusive verbally and is refusing antibiotics and wound care. Will continue to convince patient that antibiotics is for her benefit and will help heal her ulcers. (4) Bipolar 1 disorder Code(s): F31.9 - BIPOLAR DISORDER, UNSPECIFIED Status: Chronic Comment: Patient will benefit from inpt psych for intensive evaluation and supervision, currently awaiting [facility] re-evaluation to determine safety of discharge vs need for further supervised care as inpt in psych facility. Started patient on mood stabilizer of Depakote sprinkles however patient refusing. spoke to psychiatrist. Patient is put on respiradone and ativan. (5) Methamphetamine abuse Code(s): F15.10 - OTHER STIMULANT ABUSE, UNCOMPLICATED Status: Chronic (6) Paraplegia following spinal cord injury Code(s): G82.20 - PARAPLEGIA, UNSPECIFIED Status: Chronic Comment: Supportive, turning protocol - Plan refuses iv , etc -: at a loss for how to help this patient -: add po ativan * .
[2018-01-21] MEDS: Lorazepam 0.5 MG TAB PO SCH (21:14)
[2018-01-21] MEDS: Acetaminophen 325 MG TAB PO PRN (23:53)
[2018-01-22 04:46] VITALS: BP 91/54
[2018-01-22] MEDS: Lorazepam 0.5 MG TAB PO SCH ×3 (05:46→21:55)
[2018-01-22] MEDS: Divalproex Sodium 125 mg Sprinkle Capsule PO SCH ×2 (10:23→20:00)
[2018-01-22] MEDS: Ferrous Sulfate 325 MG TAB PO SCH ×2 (10:23→17:50)
[2018-01-22] MEDS: Ascorbic Acid 500 mg Chewable Tablet PO SCH (10:23)
[2018-01-22] MEDS: cefTRIAXone\\ROCEPHIN 2 GM in Sodium Chloride 0.9% 100 ML IVPB SCH (14:01)
--- NOTE | 2018-01-22 15:55 | PDOC.PN ---
- Subjective Encounter Start Date: 01/22/18 Encounter Start Time: 15:53 Subjective: still refuses to answer questions, allow exam - Objective MAR Reviewed: Yes Vital Signs & Weight: Vital Signs (12 hours) Temp Pulse Resp BP Pulse Ox 01/22/18 08:00 97.8 F 107 H 20 99 01/22/18 04:40 97.8 F 107 H 20 91/54 L 98 Weight Admit Weight 125 lb 8 oz Weight 126 lb 3.2 oz I&O: 01/21/18 01/22/18 01/23/18 06:59 06:59 06:59 Intake Total 790 1500 360 Balance 790 1500 360 Result Diagrams: 01/20/18 14:33 01/20/18 14:33 Dx/Plan (1) Substance abuse Code(s): F19.10 - OTHER PSYCHOACTIVE SUBSTANCE ABUSE, UNCOMPLICATED Status: Chronic (2) Tobacco abuse Code(s): Z72.0 - TOBACCO USE Status: Chronic (3) Decubitus ulcer, stage 4 Code(s): L89.94 - PRESSURE ULCER OF UNSPECIFIED SITE, STAGE 4 Status: Chronic Qualifiers: Pressure injury location: contiguous region involving buttock and hip Laterality: left Qualified Code(s): L89.44 - Pressure ulcer of contiguous site of back, buttock and hip, stage 4 Comment: ID and surgery on consult. Patient is very abusive verbally and is refusing antibiotics and wound care. Will continue to convince patient that antibiotics is for her benefit and will help heal her ulcers. (4) Bipolar 1 disorder Code(s): F31.9 - BIPOLAR DISORDER, UNSPECIFIED Status: Chronic Comment: Patient will benefit from inpt psych for intensive evaluation and supervision, currently awaiting [facility] re-evaluation to determine safety of discharge vs need for further supervised care as inpt in psych facility. Started patient on mood stabilizer of Depakote sprinkles however patient refusing. spoke to psychiatrist. Patient is put on respiradone and ativan. (5) Methamphetamine abuse Code(s): F15.10 - OTHER STIMULANT ABUSE, UNCOMPLICATED Status: Chronic (6) Paraplegia following spinal cord injury Code(s): G82.20 - PARAPLEGIA, UNSPECIFIED Status: Chronic Comment: Supportive, turning protocol - Plan very difficult situation. bipolar in acute paranoid phase -: working with multiple groups to determine some way to care for this patient * .
--- NOTE | 2018-01-22 18:08 | DIS ---
PRIMARY CARE PHYSICIAN: Kadi Goodman MD DATE OF TRANSFER: Transferred to [facility], 01/22/2018. ACCEPTING PHYSICIAN: Dr. Torres. FINAL DIAGNOSES: Bipolar type 2; paraplegia following spinal cord injury; decubitus ulcer stage IV i n left back, buttock, and hip; methamphetamine abuse; tobacco abuse; probable osteomyelitis. DISCHARGE MEDICATIONS: Depakote 125 b.i.d., Ativan 0.5 mg p.o. q.8 hours, Geodon 20 mg IM q.4 hours p.r.n., Rocephin 2 grams IV piggyback q.24 hours. ALLERGIES: PENICILLIN. She has had no reaction to the Rocephin. CODE STATUS: FULL. DIET: As tolerated. HOSPITAL COURSE: The patient was admitted to the [facility] through [facility] on 01/16/2018. The patient had been recently discharged on 01/11/2018, who refused de bridement and operative intervention to her wound. She had signed out AMA from the emergency room maciej fisher the day of admission. She came back complaining of severe pain. On evaluation, she was found to have a sepsis syndrome. Cultures were obtained, started on IV antibiotics. General Surgery and I nfectious Disease were consulted. She had a 5.9 grams of hemoglobin. It took a while to convince he r to allow transfusion. She was eventually transfused. She was given IV fluids. Dr. Darrick Joe, [facility], saw her in consultation. He thought that the hip was consistent with osteomyelitis; how ever, her screaming, hollering, obscenities, and refusing to see him hindered his ability to examine and make a decision. Dr. Mai, Infectious Disease, saw her and thought she needed debridement, whic h she has refused. Dr. Nina Garcia, General Surgery, saw her on 01/17/2018. She was only allowed to do a limited exam and had a stage IV left ischial decubitus scar with exposed bone and purulent d rainage from the wounds. She refused any care, was irrational in her conversations with Dr. Garica. This is continued. She is becoming increasingly hostile, paranoid, refusing IV, refusing medicines , refusing blood pressures. Today, after a conference between risks management, Nursing Services, my self, etc., decision was made since she could not be transferred to a psych hospital to transfer her to a hospital with psych and medical/surgical support. I spoke with the aforementioned doctors, see the heading of this. She agreed to accept the patient. I would have preferred that the patient come without order of emergency detainment. I spoke with the patient. She was actually quite calm, but she stated she could not leave town, she could not go anywhere. I relayed this to Nursing Services a bhavani [facility] is at the present time doing an evaluation for order of emergency detainment. Hopefully, she can be transferred in the near future. Currently, her vital signs, temperature 97.8, pulse of 107, respirations 20, O2 sat 99 on room air, b lood pressure 91/50 which has been consistent with her blood pressure through the hospital stay. LABORATORY DATA: Her most recent laboratory: White cell count 10.8, hemoglobin 7.9, platelet count 740 on 01/20/2018. She has refused any blood draw since then. Her latest chemistries were normal on 01/19/2018. Her C-reactive protein is very high at 19.33. If obtained, that is the [facility], she will be transferred to [facility] for psychiatric, me dical, and surgical care which is a level we are not able to provide, specifically to psychiatric car unruly
[2018-01-22 20:07] VITALS: TEMP 101.6
[2018-01-22] MEDS: Lorazepam 2 MG/ML VIAL SLOW IVP PRN (21:49)
== END 2018-01-22 22:00 | disposition short-term general hospital (02) | DRG 871 ==
LOC: ERS 11:28 → 2NO 17:45 → T4-B 01-18 22:23
PROVIDERS: ADMIT Family Medicine; ATTEND Family Medicine
PROC: 30233N1 Transfusion of Nonautologous Red Blood Cells into Peripheral Vein, Percutaneous Approach (ICD-10-PCS; principal; 2018-01-17)
DX: A41.9 Sepsis, unspecified organism (principal); L89.314 Pressure ulcer of right buttock, stage 4; L89.224 Pressure ulcer of left hip, stage 4; G82.20 Paraplegia, unspecified; M86.8X5 Other osteomyelitis, thigh; J90 Pleural effusion, not elsewhere classified; F31.9 Bipolar disorder, unspecified; F17.210 Nicotine dependence, cigarettes, uncomplicated; D50.9 Iron deficiency anemia, unspecified; F19.10 Other psychoactive substance abuse, uncomplicated; R45.1 Restlessness and agitation; F41.9 Anxiety disorder, unspecified; Z88.0 Allergy status to penicillin; Z90.49 Acquired absence of other specified parts of digestive tract
CPT/HCPCS: 36415; 36430; 51701; 71045; 80048; 80053; 81003; 81015; 83605; 83735; 85025; 85027; 85652; 86140; 86850; 86900; 86901; 87040; 87070; 87077; 87086; 87186; 87205; 96361; 96365; 96367; 99283; J0692; J0696; J2020; J2060; J2916; J3370; J3480; J3486; J7050; P9016

== ENCOUNTER 2018-03-08 14:01 | Inpatient (IN) | payer MEDICARE, MEDICAID ==
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
[2018-03-08 15:29] LABS: #Eosinphils 0.1 thou/uL (0.0-0.7); #Lymphocytes 2.2 thou/uL (1.20-3.40); #Monocytes 0.9 thou/uL (0.11-0.59); #Neutrophils 8.5 thou/uL (1.40-6.50); %Basophils 0.3 % (0.0-1.0); %Lymphocytes 18.4 % (21.0-51.0); %Monocytes 7.9 % (0.0-10.0); %Neutrophils 72.4 % (42.0-75.0); Hemoglobin 11.3 g/dL (12.0-16.0); Mean Corpuscular HGB CONC 31.8 g/dL (32.0-36.0); Mean Corpuscular Hemoglobin 28.4 pg (27.0-31.0); Mean Corpuscular Volume 89.3 fL (78.0-98.0); Mean Platelet Volume 5.5 fL (7.4-10.4); Platelet Count 569 thou/uL (130-400); RBC Distribution Width 15.4 % (11.5-14.5); Red Blood Cell (RBC) Count 3.98 mill/uL (4.20-5.40); White Blood Cell (WBC) Count 11.8 thou/uL (4.8-10.8)
[2018-03-08 16:00] LABS: ALT (SGPT) 9 U/L (8-55); AST (SGOT) 12 U/L (5-34); Albumin 3.3 g/dL (3.5-5.0); Alkaline Phosphatase 86 U/L (40-150); Anion Gap 15 mmol/L (10-20); BUN (Urea Nitrogen) 10 mg/dL (7.0-18.7); Bilirubin, Total 0.6 mg/dL (0.2-1.2); Calc. Creatinine Clearance 0 mL/min (70-130); Calcium 9.1 mg/dL (7.8-10.44); Carbon Dioxide 23 mmol/L (22-29); Chloride 101 mmol/L (98-107); Estimated GFR-MDRD Greater than 90; Globulin 3.6 g/dL (2.4-3.5); Glucose 137 mg/dL (70-105); Potassium 3.5 mmol/L (3.5-5.1); Protein, Total 6.9 g/dL (6.0-8.3); Sodium 135 mmol/L (136-145)
--- NOTE | 2018-03-08 16:12 | RAD ---
PORTABLE CHEST: 03/08/18 HISTORY: Shortness of breath. COMPARISON: 01/18/18. The lung good are clear. No infiltrate or pneumothorax. Heart and mediastinum unremarkable. Pedicle screws and rods transfix the thoracolumbar spine. IMPRESSION: No acute lung process. POS: [facility]
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
[2018-03-08 17:22] LABS: Bilirubin Small (Negative); Blood, Urine Negative (Negative); Clarity CLEAR (Clear); Glucose, Urine (Dipstick) Negative (Negative); Leukocyte Small (Negative); Protein, Urine (Dipstick) 30 mg/dL (Neg-Trace); Specific Gravity, Urine 1.034 (1.002-1.036)
[2018-03-08 17:24] LABS: Bacteria/HPF None Seen HPF (None Seen); Yeast-AUWi Flag 282.1 (0-25.0)
[2018-03-08 17:25] LABS: Pathc Cast-AUWi Flag 3.34 (0-2.49)
[2018-03-08 17:40] LABS: Nitrite Unable to Interpret (Negative)
[2018-03-08 17:41] LABS: RBC/HPF 0-3 HPF (0-3); Yeast-All Forms 3+ HPF (None Seen)
[2018-03-08 17:42] LABS: Hyaline Casts/LPF 0-3 HYALINE CAST LPF (0-3 Hyaline); Other Casts/LPF None Seen LPF (0-3 Hyaline); Renal Epithelial 0-3 HPF (0-3); Transitional Epithelial 0-3 HPF (0-3)
[2018-03-08] MEDS ORDERED: cefTRIAXone\\ROCEPHIN 1 GM VIAL ONE (18:03)
[2018-03-08 19:37] VITALS: BMI 19.1
[2018-03-08] MEDS ORDERED: Ondansetron ODT 4 MG TAB SL PRN (19:59)
[2018-03-08] MEDS ORDERED: Acetaminophen 325 MG TAB PO PRN (19:59)
[2018-03-08] MEDS ORDERED: Ondansetron HCl/PF 4 MG/2 ML Vial IVP PRN (19:59)
[2018-03-08] MEDS: Sodium Chloride 0.9% 1,000 ML IV SCH (21:09)
[2018-03-08] MEDS ORDERED: Ziprasidone 20 MG VIAL IM PRN (22:31)
[2018-03-08] MEDS ORDERED: Sterile Water 10 ML VIAL FS PRN (22:36)
[2018-03-08 22:54] LABS: Cocaine Metabolite Screen Not Detected (NotDetected); Medtox Reader # READER 4; Phencyclidine (PCP) Not Detected (NotDetected); THC/Cannabinoid Screen Not Detected (NotDetected)
[2018-03-08 22:55] LABS: Amphetamine Detected (NotDetected); Barbiturates Screen Not Detected (NotDetected); Benzodiazepine Screen Not Detected (NotDetected); Medtox Control Line Valid? VALID (VALID); Methadone Not Detected (NotDetected); Methamphetamine Detected (NotDetected); Opiate Screen Not Detected (NotDetected); Oxycodone Screen Not Detected (NotDetected); Tricyclic Screen Not Detected (NotDetected)
[2018-03-08] MEDS ORDERED: Lorazepam 2 MG/ML VIAL SLOW IVP PRN (23:04)
[2018-03-09] MEDS: Sodium Chloride 0.9% 1,000 ML IV SCH ×3 (05:00→20:19)
[2018-03-09] MEDS ORDERED: Divalproex Sodium 125 mg Sprinkle Capsule PO SCH (09:00)
[2018-03-09] MEDS: Haloperidol 1 MG TAB PO SCH ×2 (09:46→20:14)
--- NOTE | 2018-03-09 11:05 | RAD ---
THREE VIEWS RIGHT ANKLE: DATE: 03/09/18. HISTORY: Right ankle fracture. FINDINGS: The ankle mortise is congruent. No fracture or dislocation is seen involving the right ankle. IMPRESSION: No acute osseous abnormality. POS: [facility]
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
[2018-03-09] MEDS ORDERED: Acetaminophen 500 MG TAB PO PRN (12:43)
[2018-03-09] MEDS ORDERED: Ondansetron HCl/PF 4 MG/2 ML Vial IVP PRN (12:43)
[2018-03-09] MEDS ORDERED: Ondansetron ODT 4 MG TAB PO PRN (12:43)
[2018-03-09] MEDS ORDERED: Doxycycline 100 MG CAP PO SCH (13:00)
[2018-03-09] MEDS: metroNIDAZOLE 500 MG TAB PO SCH ×2 (13:38→20:13)
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
[2018-03-09] MEDS: cefTRIAXone\\ROCEPHIN 1 GM in Sodium Chloride 0.9% 100 ML IVPB SCH (17:13)
[2018-03-09] MEDS: Famotidine 20 MG TAB PO SCH (20:13)
[2018-03-09] MEDS: Divalproex Sodium 125 mg Sprinkle Capsule PO SCH (20:13)
[2018-03-09] MEDS: Doxycycline 100 MG CAP PO SCH (20:14)
[2018-03-10] MEDS: Sodium Chloride 0.9% 1,000 ML IV SCH ×3 (03:03→17:39)
[2018-03-10 05:00] LABS: Band 8 % (5-11); Eosinophils 3 % (0-10); Hemoglobin 7.4 g/dL (12.0-16.0); Lymphocytes 39 % (21-51); MDiff Complete? YES; Mean Corpuscular HGB CONC 32.2 g/dL (32.0-36.0); Mean Corpuscular Volume 89.8 fL (78.0-98.0); Mean Platelet Volume 5.3 fL (7.4-10.4); Monocytes 4 % (0-10); Neutrophil 46 % (42-75); PLT Morphology Comment Appears Adequate; Platelet Count 363 thou/uL (130-400); RBC Distribution Width 14.5 % (11.5-14.5); Red Blood Cell (RBC) Count 2.55 mill/uL (4.20-5.40); White Blood Cell (WBC) Count 7.2 thou/uL (4.8-10.8)
[2018-03-10 05:06] LABS: Anion Gap 8 mmol/L (10-20); BUN (Urea Nitrogen) Less than 4 mg/dL (7.0-18.7); Calc. Creatinine Clearance 166 mL/min (70-130); Calcium 7.8 mg/dL (7.8-10.44); Carbon Dioxide 22 mmol/L (22-29); Chloride 110 mmol/L (98-107); Estimated GFR-MDRD Greater than 90; Glucose 103 mg/dL (70-105); Potassium 3.4 mmol/L (3.5-5.1); Sodium 137 mmol/L (136-145)
[2018-03-10] MEDS: Famotidine 20 MG TAB PO SCH ×2 (08:24→20:43)
[2018-03-10] MEDS: metroNIDAZOLE 500 MG TAB PO SCH ×3 (08:24→20:43)
[2018-03-10] MEDS: Ascorbic Acid 500 mg Chewable Tablet PO SCH (08:24)
[2018-03-10] MEDS: Doxycycline 100 MG CAP PO SCH ×2 (08:25→20:43)
[2018-03-10] MEDS: Divalproex Sodium 125 mg Sprinkle Capsule PO SCH ×2 (08:25→20:43)
[2018-03-10] MEDS: Haloperidol 1 MG TAB PO SCH ×2 (08:25→20:43)
[2018-03-10] MEDS ORDERED: Sodium Chloride 0.9% 1,000 ML IV SCH (11:01)
[2018-03-10 12:12] LABS: Hemoglobin 8.5 g/dL (12.0-16.0); Platelet Count 369 thou/uL (130-400)
--- NOTE | 2018-03-10 15:29 | PDOC.PN ---
- Subjective Encounter Start Date: 03/10/18 Encounter Start Time: 15:25 Subjective: f/u for L femur fx with knee immobilizer and suspected sepsis likely from -: skin source. LLE swollen but no pain. Receiving Rocephin, Levaquin and -: Flagyl. No new complaints - Objective Resuscitation Status: Resuscitation Status FULL:Full Resuscitation MAR Reviewed: Yes Vital Signs & Weight: Vital Signs (12 hours) Temp Pulse Resp BP Pulse Ox 03/10/18 11:33 98.1 F 101 H 16 86/50 L 99 03/10/18 08:00 100 03/10/18 07:40 98.1 F 106 H 16 106/66 100 Weight Admit Weight 115 lb 0.96 oz Weight 115 lb 0.96 oz I&O: 03/09/18 03/10/18 03/11/18 06:59 06:59 06:59 Intake Total 1167 1589 Output Total 0 0 Balance 1167 1589 Result Diagrams: 03/10/18 11:51 03/10/18 04:35 Additional Labs: Microbiology 03/08/18 17:08 Urine Straight Catheter Urine Culture - Final Yeast species 03/08/18 15:18 Venous blood - Right Hand Blood Culture - Preliminary NO GROWTH AT 48 HOURS 03/08/18 15:15 Venous blood - Left Hand Blood Culture - Preliminary NO GROWTH AT 48 HOURS 08/17/17 16:42 Venous blood - Left Arm Blood Culture - Preliminary NO GROWTH AT 48 HOURS 08/17/17 16:41 Venous blood - Left Hand Blood Culture - Preliminary NO GROWTH AT 48 HOURS Laboratory Tests 08/17/17 08/18/17 08/19/17 15:40 16:37 03:25 Hgb Plt Count Potassium 3.1 L 3.0 L Lactic Acid Ur Amphetamines Screen Detected H U Methamphetamines Scrn Detected H 03/08/18 03/08/18 03/08/18 15:18 15:18 15:19 Hgb 11.3 L Plt Count 569 H Potassium 3.5 Lactic Acid 1.7 Ur Amphetamines Screen U Methamphetamines Scrn 03/10/18 04:35 Hgb 7.4 L Plt Count Potassium Lactic Acid Ur Amphetamines Screen U Methamphetamines Scrn Phys Exam - Physical Examination Constitutional: NAD alert, responsive HEENT: PERRLA, sclera anicteric, oral pharynx no lesions Neck: no nodes, no JVD, supple, full ROM Respiratory: no wheezing, no rales, no rhonchi, clear to auscultation bilateral S1, S2 Cardiovascular: RRR, no significant murmur, no rub, gallop Gastrointestinal: soft, non-tender, no distention, positive bowel sounds LLE edema most pronounced in thigh, pulses palpable distally Musculoskeletal: pulses present paraplegia of LE's Psychiatric: A&O x 3 Skin: normal turgor, cap refill <2 seconds Dx/Plan (1) Sepsis Code(s): A41.9 - SEPSIS, UNSPECIFIED ORGANISM Status: Resolved Comment: Suspected given Stage IV decubitus ulcer, continue Levaquin, Flagyl and Rocephin , IVF's (2) Femur fracture, left Code(s): S72.92XA - UNSP FRACTURE OF LEFT FEMUR, INIT ENCNTR FOR CLOSED FRACTURE Status: Acute Comment: Supportive mgmt, Knee immobilizer, Orthopedics following, check LLE sono to r/o DVT (3) Decubitus ulcer, stage 4 Code(s): L89.94 - PRESSURE ULCER OF UNSPECIFIED SITE, STAGE 4 Status: Chronic Qualifiers: Pressure injury location: contiguous region involving buttock and hip Laterality: left Qualified Code(s): L89.44 - Pressure ulcer of contiguous site of back, buttock and hip, stage 4 Comment: WCT for local care, turning protocol, continue Levaquin, Flagyl, Doxycycline (4) Methamphetamine abuse Code(s): F15.10 - OTHER STIMULANT ABUSE, UNCOMPLICATED Status: Chronic (5) Paraplegia following spinal cord injury Code(s): G82.20 - PARAPLEGIA, UNSPECIFIED Status: Chronic Comment: Supportive, turning protocol (6) Edema of left lower extremity Code(s): R60.0 - LOCALIZED EDEMA Status: Acute Comment: ? etiology, check LLE sono to r/o DVT - Plan continue antibiotics, PT/OT, psychiatric social worker supervisor, DVT proph w/SCDs Stable currently -: Continue Levaquin, Flagyl, Rocephin -: Continue IVF's another 24h -: Check LLE venous doppler -: K-Dur 40meq BID * .
[2018-03-10] MEDS: Potassium Chloride 20 MEQ TAB PO SCH (17:38)
[2018-03-10] MEDS: cefTRIAXone\\ROCEPHIN 1 GM in Sodium Chloride 0.9% 100 ML IVPB SCH (17:39)
[2018-03-10] MEDS: Lorazepam 2 MG/ML VIAL SLOW IVP PRN (20:42)
[2018-03-11] MEDS: Sodium Chloride 0.9% 1,000 ML IV SCH (05:31)
[2018-03-11] MEDS: Potassium Chloride 20 MEQ TAB PO SCH (08:38)
[2018-03-11] MEDS: Haloperidol 1 MG TAB PO SCH ×2 (08:39→20:52)
[2018-03-11] MEDS: Famotidine 20 MG TAB PO SCH ×2 (08:39→20:53)
[2018-03-11] MEDS: Doxycycline 100 MG CAP PO SCH ×2 (08:39→20:53)
[2018-03-11] MEDS: Divalproex Sodium 125 mg Sprinkle Capsule PO SCH ×2 (08:39→20:52)
[2018-03-11] MEDS: Ascorbic Acid 500 mg Chewable Tablet PO SCH (08:39)
[2018-03-11] MEDS: metroNIDAZOLE 500 MG TAB PO SCH ×3 (08:39→20:52)
--- NOTE | 2018-03-11 11:22 | PDOC.PN ---
- Subjective Encounter Start Date: 03/11/18 Encounter Start Time: 11:15 Subjective: f/u for suspected sepsis, L femur fx on current Levaquin, Rocephin and -: Flagyl. Still has swelling of LLE. Low-grade temp noted. - Objective Resuscitation Status: Resuscitation Status FULL:Full Resuscitation MAR Reviewed: Yes Vital Signs & Weight: Vital Signs (12 hours) Temp Pulse Resp BP Pulse Ox 03/11/18 09:00 98.1 F 97 16 90/54 L 99 03/11/18 08:00 99 Weight Admit Weight 115 lb 0.96 oz Weight 115 lb 0.96 oz I&O: 03/10/18 03/11/18 03/12/18 06:59 06:59 06:59 Intake Total 1589 968 Output Total 0 Balance 1589 968 Result Diagrams: 03/10/18 11:51 03/10/18 04:35 Additional Labs: Microbiology 03/08/18 17:08 Urine Straight Catheter Urine Culture - Final Yeast species 03/08/18 15:18 Venous blood - Right Hand Blood Culture - Preliminary NO GROWTH AT 48 HOURS 03/08/18 15:15 Venous blood - Left Hand Blood Culture - Preliminary NO GROWTH AT 48 HOURS 08/17/17 16:42 Venous blood - Left Arm Blood Culture - Preliminary NO GROWTH AT 48 HOURS 08/17/17 16:41 Venous blood - Left Hand Blood Culture - Preliminary NO GROWTH AT 48 HOURS Laboratory Tests 08/17/17 08/18/17 08/19/17 15:40 16:37 03:25 Hgb Plt Count Potassium 3.1 L 3.0 L Lactic Acid Ur Amphetamines Screen Detected H U Methamphetamines Scrn Detected H 03/08/18 03/08/18 03/08/18 15:18 15:18 15:19 Hgb 11.3 L Plt Count 569 H Potassium 3.5 Lactic Acid 1.7 Ur Amphetamines Screen U Methamphetamines Scrn 03/10/18 04:35 Hgb 7.4 L Plt Count Potassium Lactic Acid Ur Amphetamines Screen U Methamphetamines Scrn Phys Exam - Physical Examination Constitutional: NAD HEENT: PERRLA, sclera anicteric, oral pharynx no lesions Neck: no nodes, no JVD, supple, full ROM Respiratory: no wheezing, no rales, no rhonchi, clear to auscultation bilateral S1, S2 Cardiovascular: RRR, no significant murmur, no rub, gallop Gastrointestinal: soft, non-tender, no distention, positive bowel sounds LLE edema, pulses palpable distally, prominent edema of L thigh Musculoskeletal: pulses present paraplegia LE's Psychiatric: A&O x 3 Skin: normal turgor, cap refill <2 seconds Dx/Plan (1) Sepsis Code(s): A41.9 - SEPSIS, UNSPECIFIED ORGANISM Status: Resolved Comment: Suspected given Stage IV decubitus ulcer, continue Levaquin, Flagyl and Rocephin , saline lock IVF's (2) Femur fracture, left Code(s): S72.92XA - UNSP FRACTURE OF LEFT FEMUR, INIT ENCNTR FOR CLOSED FRACTURE Status: Acute Comment: Supportive mgmt, Knee immobilizer, Orthopedics following, pending LLE sono to r/o DVT (3) Decubitus ulcer, stage 4 Code(s): L89.94 - PRESSURE ULCER OF UNSPECIFIED SITE, STAGE 4 Status: Chronic Qualifiers: Pressure injury location: contiguous region involving buttock and hip Laterality: left Qualified Code(s): L89.44 - Pressure ulcer of contiguous site of back, buttock and hip, stage 4 Comment: WCT for local care, turning protocol, continue Levaquin, Flagyl, Doxycycline (4) Methamphetamine abuse Code(s): F15.10 - OTHER STIMULANT ABUSE, UNCOMPLICATED Status: Chronic (5) Paraplegia following spinal cord injury Code(s): G82.20 - PARAPLEGIA, UNSPECIFIED Status: Chronic Comment: Supportive, turning protocol (6) Edema of left lower extremity Code(s): R60.0 - LOCALIZED EDEMA Status: Acute Comment: ? etiology but likely multifactorial given distal L femur fx and chronic L femoral head destruction, check LLE sono to r/o DVT - Plan continue antibiotics, social media coordinator Stable overall -: LLE doppler pending -: Orthopedic evaluation in progress for distal L femur fx -: Continue Levaquin, Rocephin, Flagyl -: Saline lock IVF's * WCT for local care of chronic decubitus ulcer
--- NOTE | 2018-03-11 15:43 | ULT ---
LEFT LOWER EXTREMITY VENOUS DUPLEX EXAM: History: Leg swelling. History of fracture. FINDINGS: This exam is very technically limited, particularly in the thigh region, for evaluation for compressi bility. Evaluation included the common femoral, superficial, and profunda femoral, saphenous, poplite al, and posterior tibial veins. There is compressibility and flow demonstrated within the common femoral vein. It is very difficult t o compress the mid to distal thigh region due to soft tissue swelling and it is also difficult to def initely visualize flow in the mid to distal superficial femoral vein. There is flow in the posterior tibial vein and popliteal vein. IMPRESSION: Limited examination due to difficulty in adequately compressing and visualizing deep venous in the th igh due to swelling. It is difficult to definitely show flow in the mid to distal superficial femoral vein. I cannot totally exclude the possibility of thrombus in this region, possibly some nonocclusiv e thrombus, but exam is limited due to the depth of the vein and edema change which makes evaluation difficulty. Both proximal and distal to this level there is flow demonstrated. POS: ISELA
[2018-03-11] MEDS: cefTRIAXone\\ROCEPHIN 1 GM in Sodium Chloride 0.9% 100 ML IVPB SCH (17:30)
[2018-03-11] MEDS: Lorazepam 2 MG/ML VIAL SLOW IVP PRN (20:53)
[2018-03-12] MEDS: metroNIDAZOLE 500 MG TAB PO SCH ×3 (09:12→20:41)
[2018-03-12] MEDS: Divalproex Sodium 125 mg Sprinkle Capsule PO SCH ×2 (09:13→20:41)
[2018-03-12] MEDS: Famotidine 20 MG TAB PO SCH ×2 (09:13→20:41)
[2018-03-12] MEDS: Doxycycline 100 MG CAP PO SCH ×2 (09:13→20:41)
[2018-03-12] MEDS: Ascorbic Acid 500 mg Chewable Tablet PO SCH (09:13)
[2018-03-12] MEDS: Potassium Chloride 20 MEQ TAB PO SCH (09:13)
[2018-03-12] MEDS: Haloperidol 1 MG TAB PO SCH ×2 (09:13→20:41)
--- NOTE | 2018-03-12 15:07 | PDOC.PN ---
- Subjective Encounter Start Date: 03/12/18 Encounter Start Time: 14:45 Subjective: f/u for sepsis suspected due to chronic decubitus ulcer on Rocephin, -: Levaquin and Flagyl. No fever documented. Feels ok overall. - Objective Resuscitation Status: Resuscitation Status FULL:Full Resuscitation MAR Reviewed: Yes Vital Signs & Weight: Vital Signs (12 hours) Temp Pulse Resp BP Pulse Ox 03/12/18 12:32 97.6 F 125 H 18 100/58 L 100 03/12/18 09:10 100 03/12/18 08:50 97.7 F 91 16 85/51 L 100 03/12/18 04:12 98.6 F 110 H 16 97 Weight Admit Weight 115 lb 0.96 oz Weight 115 lb 0.96 oz I&O: 03/11/18 03/12/18 03/13/18 06:59 06:59 06:59 Intake Total 968 2000 Balance 968 1999 Result Diagrams: 03/10/18 11:51 03/10/18 04:35 Additional Labs: Microbiology 03/08/18 17:08 Urine Straight Catheter Urine Culture - Final Yeast species 03/08/18 15:18 Venous blood - Right Hand Blood Culture - Preliminary NO GROWTH AT 48 HOURS 03/08/18 15:15 Venous blood - Left Hand Blood Culture - Preliminary NO GROWTH AT 48 HOURS 08/17/17 16:42 Venous blood - Left Arm Blood Culture - Preliminary NO GROWTH AT 48 HOURS 08/17/17 16:41 Venous blood - Left Hand Blood Culture - Preliminary NO GROWTH AT 48 HOURS Laboratory Tests 08/17/17 08/18/17 08/19/17 15:40 16:37 03:25 Hgb Plt Count Potassium 3.1 L 3.0 L Lactic Acid Ur Amphetamines Screen Detected H U Methamphetamines Scrn Detected H 03/08/18 03/08/18 03/08/18 15:18 15:18 15:19 Hgb 11.3 L Plt Count 569 H Potassium 3.5 Lactic Acid 1.7 Ur Amphetamines Screen U Methamphetamines Scrn 03/10/18 04:35 Hgb 7.4 L Plt Count Potassium Lactic Acid Ur Amphetamines Screen U Methamphetamines Scrn Radiology Reviewed by me: Yes (LLE sono - no definite thrombus, limited exam) Phys Exam - Physical Examination Constitutional: NAD HEENT: PERRLA, sclera anicteric, oral pharynx no lesions Neck: no nodes, no JVD, supple, full ROM Respiratory: no wheezing, no rales, no rhonchi, clear to auscultation bilateral Cardiovascular: RRR, no significant murmur, no rub, gallop Gastrointestinal: soft, non-tender, no distention, positive bowel sounds LLE edema of entire thigh Musculoskeletal: pulses present + paraplegia LE's, chronic flat affect Psychiatric: A&O x 3 Skin: normal turgor, cap refill <2 seconds Dx/Plan (1) Sepsis Code(s): A41.9 - SEPSIS, UNSPECIFIED ORGANISM Status: Resolved Comment: Suspected given Stage IV decubitus ulcer, continue Levaquin, Flagyl and Rocephin , saline lock IVF's, resolving (2) Femur fracture, left Code(s): S72.92XA - UNSP FRACTURE OF LEFT FEMUR, INIT ENCNTR FOR CLOSED FRACTURE Status: Acute Comment: Supportive mgmt, Knee immobilizer, Orthopedics following but no current plan for surgical intervention (3) Decubitus ulcer, stage 4 Code(s): L89.94 - PRESSURE ULCER OF UNSPECIFIED SITE, STAGE 4 Status: Chronic Qualifiers: Pressure injury location: contiguous region involving buttock and hip Laterality: left Qualified Code(s): L89.44 - Pressure ulcer of contiguous site of back, buttock and hip, stage 4 Comment: WCT for local care, turning protocol, continue Levaquin, Flagyl, Doxycycline (4) Methamphetamine abuse Code(s): F15.10 - OTHER STIMULANT ABUSE, UNCOMPLICATED Status: Chronic (5) Paraplegia following spinal cord injury Code(s): G82.20 - PARAPLEGIA, UNSPECIFIED Status: Chronic Comment: Supportive, turning protocol (6) Edema of left lower extremity Code(s): R60.0 - LOCALIZED EDEMA Status: Acute Comment: ? etiology but likely multifactorial given distal L femur fx and chronic L femoral head destruction, check LLE sono to r/o DVT - Plan continue antibiotics, PT/OT, social media marketing specialist Stable overall -: Continue Rocephin another 24h -: Continue Levaquin and Flagyl -: WCT for local care of L buttock decubitus ulcer -: Likely home in 24h * .
[2018-03-12] MEDS: cefTRIAXone\\ROCEPHIN 1 GM in Sodium Chloride 0.9% 100 ML IVPB SCH (17:21)
[2018-03-12] MEDS: Lorazepam 2 MG/ML VIAL SLOW IVP PRN (20:42)
[2018-03-13] MEDS: Ascorbic Acid 500 mg Chewable Tablet PO SCH (09:31)
[2018-03-13] MEDS: metroNIDAZOLE 500 MG TAB PO SCH (09:32)
[2018-03-13] MEDS: Haloperidol 1 MG TAB PO SCH (09:32)
[2018-03-13] MEDS: Doxycycline 100 MG CAP PO SCH (09:32)
[2018-03-13] MEDS: Famotidine 20 MG TAB PO SCH (09:32)
[2018-03-13] MEDS: Potassium Chloride 20 MEQ TAB PO SCH (09:32)
[2018-03-13] MEDS: Divalproex Sodium 125 mg Sprinkle Capsule PO SCH (09:34)
--- NOTE | 2018-03-13 14:09 | DIS ---
DATE OF ADMISSION: 03/08/2018 DATE OF DISCHARGE: 03/13/2018 DISCHARGE DIAGNOSES: 1. Sepsis, multifactorial including stage IV decubitus ulcer of the left buttock, resolved. 2. Left distal femur fracture, comminuted nonoperative management. 3. Stage IV decubitus ulcer, chronic. 4. Methamphetamine abuse. 5. Paraplegia following spinal cord injury. 6. Left lower extremity edema, multifactorial including left femur fracture. CONSULTATION: Dr. Avila with Orthopedic Surgery Service. PERTINENT LABORATORY DATA AND IMAGING DATA: Basic metabolic profile within normal limits. Lactic ac id level 1.7. CBC showed a white blood cell count ranging between 7.2-11.8, hemoglobin ranged betwee n 7.4-11.3, platelet count ranged between 363-569. Urine drug screen dated 03/08/2018 positive for m ethamphetamines. Blood cultures x2 dated 03/08/2018 showed no growth at 48 hours. Urine culture claudette ed 03/08/2018 showed 25-50,000 colonies of yeast species. Portable chest x-ray dated 03/08/2018 show ed no acute cardiopulmonary process. Four views of the left knee dated 03/08/2018 showed markedly co mminuted foreshortened distal femoral fracture with extensive fragmentation with evidence of intra-ar ticular extension. Two views of the left hip dated 03/08/2018 showed irregularity of the femoral hea d, chronic in nature. Three views of the right ankle dated 03/09/2018 showed no acute fracture or di slocation. Left lower extremity venous Doppler study dated 03/11/2018 showed a technically limited e xam without definite evidence of thrombosis. HOSPITAL COURSE: Patient was initially admitted to the medical floor after presenting with left lowe r extremity swelling after apparent fall out of the wheelchair. The patient was evaluated with multi ple plain radiographs showing evidence of markedly comminuted fracture of the distal femur with intra -articular extension. Orthopedic evaluation recommended nonoperative management currently with conse rvative measures. Due to chronic decubitus ulceration of the left buttock and history of noncomplian ce, patient was not deemed an appropriate candidate for open reduction and internal fixation due to c oncern for infectious process. The patient was noted with sepsis likely multifactorial including dec ubitus ulceration as stated previously treated with IV Rocephin, Levaquin, metronidazole and doxycycl ine. Blood cultures were negative as stated previously and patient did clinically stabilize with sup portive management and IV fluids. The patient did receive local wound care to the chronic left decub itus ulceration throughout the hospital course. The patient had intermittent febrile episodes contro lled with Tylenol and continuation of antibiotic therapy. Due to patient's social situation, open wo und of the left buttock and questionable compliance, patient was recommended for outpatient orthopedi c followup and monitoring after discharge. The patient did clinically stabilize tolerating regular o ral intake and voiding appropriately. I have examined the patient at the time of discharge and discu ssed followup instructions. The patient verbalized understanding and agreement ready for discharge o n 03/13/2018. DISCHARGE MEDICATIONS: 1. Doxycycline 100 mg p.o. b.i.d. 2. Haldol 3 mg p.o. b.i.d. 3. Levaquin 750 mg p.o. daily. 4. Metronidazole 500 mg p.o. t.i.d. 5. Vitamin C 500 mg p.o. daily. 6. Depakote sprinkles 125 mg p.o. b.i.d. FOLLOWUP: Patient to follow up with Dr. Kadi Goodman within 7 days of discharge. The patient will fo llow up with Dr. Kyle Avila in 6 weeks. CONDITION OF DISCHARGE: Fair. ACTIVITY: Ad emmy. Wheelchair for mobilization. DIET: Regular. CODE STATUS: FULL. DISPOSITION: Home 03/13/2018. total time preparing and coordinating discharge is 35 minutes.
[2018-03-13 15:05] VITALS: BP 112/69; TEMP 97.8
== END 2018-03-13 15:00 | disposition home or self-care (01) | DRG 871 ==
LOC: ERS 14:01 → T4-B 19:35
PROVIDERS: ADMIT Internal Medicine; ATTEND Internal Medicine
DX: A41.9 Sepsis, unspecified organism (principal); L89.324 Pressure ulcer of left buttock, stage 4; S72.492A Other fracture of lower end of left femur, initial encounter for closed fracture; N39.0 Urinary tract infection, site not specified; G82.20 Paraplegia, unspecified; F20.9 Schizophrenia, unspecified; F31.9 Bipolar disorder, unspecified; F15.10 Other stimulant abuse, uncomplicated; M19.90 Unspecified osteoarthritis, unspecified site; Z79.899 Other long term (current) drug therapy; Z79.2 Long term (current) use of antibiotics; Z99.3 Dependence on wheelchair; F17.210 Nicotine dependence, cigarettes, uncomplicated; Z59.0 Homelessness; R60.0 Localized edema
CPT/HCPCS: 36415; 71045; 80048; 80053; 80306; 81003; 81015; 83605; 85007; 85025; 85027; 87040; 87086; 96361; 96365; G8978-GP-CJ; G8979-GP-CI; J0696; J2060; J7050

== ENCOUNTER 2018-03-19 13:58 | Emergency (ER) | payer MEDICARE, MEDICAID | END 2018-03-19 16:31 | disposition home or self-care (01) | LOC: ERS 13:58 | DX: L89.224 Pressure ulcer of left hip, stage 4 (principal); F41.9 Anxiety disorder, unspecified; G82.20 Paraplegia, unspecified; F32.9 Major depressive disorder, single episode, unspecified; F20.9 Schizophrenia, unspecified; F17.210 Nicotine dependence, cigarettes, uncomplicated; Z79.899 Other long term (current) drug therapy | CPT/HCPCS: 99284 ==

== ENCOUNTER 2018-07-24 16:24 | Emergency (ER) | payer MEDICARE, MEDICAID ==
[2018-07-24 17:39] LABS: #Basophils 0.1 thou/uL (0.0-0.2); #Eosinphils 0.3 thou/uL (0.0-0.7); #Lymphocytes 2.7 thou/uL (1.20-3.40); #Monocytes 0.9 thou/uL (0.11-0.59); #Neutrophils 9.6 thou/uL (1.40-6.50); %Basophils 0.7 % (0.0-1.0); %Eosinophils 2.3 % (0.0-10.0); %Lymphocytes 19.7 % (21.0-51.0); %Monocytes 6.7 % (0.0-10.0); %Neutrophils 70.6 % (42.0-75.0); Anisocytosis SLIGHT = 6-15 cells (100X) (0-5/hpf); Hemoglobin 11.5 g/dL (12.0-16.0); Hypochromia SLIGHT = 6-15 cells (100X) (0-5/hpf); MDiff Complete? YES; Mean Corpuscular HGB CONC 30.5 g/dL (32.0-36.0); Mean Corpuscular Hemoglobin 23.7 pg (27.0-31.0); Mean Corpuscular Volume 77.8 fL (78.0-98.0); Mean Platelet Volume 4.5 fL (7.4-10.4); Platelet Count 517 thou/uL (130-400); Platelet Morphology Comment Appears Increased; RBC Distribution Width 17.2 % (11.5-14.5); Red Blood Cell (RBC) Count 4.84 mill/uL (4.20-5.40); White Blood Cell (WBC) Count 13.6 thou/uL (4.8-10.8)
[2018-07-24 17:46] LABS: ALT (SGPT) 15 U/L (8-55); AST (SGOT) 15 U/L (5-34); Albumin 3.3 g/dL (3.5-5.0); Alkaline Phosphatase 134 U/L (40-150); Anion Gap 14 mmol/L (10-20); BUN (Urea Nitrogen) 10 mg/dL (7.0-18.7); Bilirubin, Total 0.4 mg/dL (0.2-1.2); Calc. Creatinine Clearance 0 mL/min (70-130); Calcium 9.3 mg/dL (7.8-10.44); Carbon Dioxide 26 mmol/L (22-29); Chloride 102 mmol/L (98-107); Estimated GFR-MDRD Greater than 90; Globulin 4.5 g/dL (2.4-3.5); Glucose 96 mg/dL (70-105); Potassium 3.8 mmol/L (3.5-5.1); Protein, Total 7.8 g/dL (6.0-8.3); Sodium 138 mmol/L (136-145)
[2018-07-24] MEDS ORDERED: diphenhydrAMINE 50 MG/ML VIAL ONE (18:15)
== END 2018-07-24 18:20 | disposition short-term general hospital (02) ==
LOC: SCSER 16:24
DX: A41.9 Sepsis, unspecified organism (principal); K61.0 Anal abscess; F41.9 Anxiety disorder, unspecified; F31.9 Bipolar disorder, unspecified; F20.9 Schizophrenia, unspecified; F17.210 Nicotine dependence, cigarettes, uncomplicated
CPT/HCPCS: 36415; 80053; 83605; 85025; 87040; J1200; J3370

== ENCOUNTER 2018-07-24 18:38 | Inpatient (IN) | payer MEDICARE, MEDICAID ==
[2018-07-24] MEDS ORDERED: Haloperidol Lactate 5 MG/ML VIAL ONE (20:07)
[2018-07-24] MEDS ORDERED: Clindamycin/D5W 600 mg/50 ml Premix Bag ONE (20:07)
--- NOTE | 2018-07-24 21:56 | PDOC.EVN ---
Event Note - Event Note Event Note: I went to go see patient while in the ER after discussing case with Dr. Gonzalez , patient was very suspicious, cursing loudly, very aggressive, and refused to give history or allow me to do a physical exam. She made multiple comments about other people being there who were not present, said that someone was stuffing her body in her body, and other non-sense statements. Patient with obvious psychosis. Unable to perform H&P now. Patient is not competent to make medical decisions at this time. Spoke with Dr. Gonzalez and she will give patient Haldol. Myself or night physician will attempt to come by later and do the admission later after that takes effect. Patient may end up needing chemical or physical restraints if she becomes aggressive and dangerous to herself or the hospital staff.
--- NOTE | 2018-07-25 00:02 | CON ---
DATE OF CONSULTATION: REASON FOR CONSULT: Labial abscess. HISTORY: Ms. Boyd is a 23-year-old woman with a complex medical, surgical, and psychiatric history, who has been serially noncompliant with medical recommendations and has left AMA on multiple occasions in the past. She is paraplegic and currently living alone in a hotel room. She states that she was recently in another hospital for a month for wound care, but was not getting better, so she left. She is really not forthcoming with any recent medical history and refuses to tell me where she was or what was done. She does state that her labia has been red and swollen for 3 or 4 days. She has a large chronic left ischial decubitus ulcer, which on her most recent admission. She refused to allow me to even examine. She states that there is pus draining from that wound. 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 PAST SURGICAL HISTORY: Spinal fusion with hardware chronically displaced, cholecystectomy in 2018 and status post debridement of decubitus ulcers. ALLERGIES: SHE REPORTS AN ALLERGY TO PENICILLIN AND STATES THAT VANCOMYCIN MAKES HER ITCH. FAMILY HISTORY: None known and the patient is not forthcoming. REVIEW OF SYSTEMS: Also refused. MEDICATIONS: Also not reported. PHYSICAL EXAMINATION: VITAL SIGNS: The patient was mildly tachycardic on arrival in the emergency room with a normal temperature and normal blood pressure, 100% on room air. GENERAL: Reveals a paraplegic, but otherwise healthy-appearing young woman, in no acute distress. Sitting upright in bed. She was cooperative with the majority of the examination, although she would not let me examine her wound. HEENT: Unremarkable. NECK: Supple without lymphadenopathy. HEART: Regular in its rate and rhythm without murmurs, rubs, or gallops. LUNGS: Clear to auscultation bilaterally. ABDOMEN: Soft, nontender, and nondistended. BACK: Shows a protruding hardware under the skin, but no skin breakdown. EXTREMITIES: Warm and well perfused. Multiple decubitus ulcers on her legs and feet have all healed. She has an asymmetric bony protuberances in her left mid and distal thigh. This is nontender, but she has a dense paraplegia. Her left labia is erythematous, indurated, swollen and boggy posteriorly. There is a pinpoint opening with draining pus. Thus, several centimeters removed from her chronic ischial decubitus ulcer and does not appear to connect to the ischial ulcer, although again I was not allowed to examine that wound directly. LABORATORY DATA: White count is elevated at 13,000, hematocrit is 37, and platelets 517. Electrolytes are unremarkable. ASSESSMENT: Labial abscess partially spontaneously draining. I recommended drainage in the operating room since the abscess appears to be quite large and this will allow me to examine it under better lighting conditions and also obtain better hemostasis in this highly vascular area of the body. Knowing that the patient is sometimes reluctant to accept surgical management and anesthesia due to her paranoia, I also offered to try to drain this in the emergency room, although I did not feel like this would be effective. The patient, however, refused any treatment, stating that this was all coming from her wound and the doctors and nurses never did anything to help that. She expressed several thoughts that did not seem to make any sense or even whole together grammatically and began to put her clothes back on and disconnect her monitoring equipment. This is consistent with the behavior that she has demonstrated in prior admissions with belligerence and paranoia quite prominently displayed. I offered to give her objective documentation of what I was seeing by taking a photo and showing her the drainage area of her abscess, but she refused this. When I placed her finger on the drainage spot and let her feel the pus that was coming from this area, she insisted that had just run down from her open wound, which was posterior to this area. In my opinion, the patient is incapable of making informed decisions and has consistently demonstrated a pattern of placing herself in harm's way by refusing appropriate medical treatment. Unfortunately, unless she has declared incompetent, I am not able to intervene at this point, nor is it truly an emergency since the abscess is spontaneously draining, although in my opinion, this will not adequately drain the abscess and it does put her at risk for infectious process continuing to smolder and potentially worsen. If the patient decides to accept surgical treatment, please re-consult me. Job ID: [id number]
[2018-07-25] MEDS ORDERED: Acetaminophen 650 MG Suppository PR PRN (00:03)
[2018-07-25] MEDS ORDERED: Acetaminophen 325 MG TAB PO PRN ×2 (00:03→00:57)
[2018-07-25] MEDS ORDERED: Sodium Chloride 0.45% 500 ML IV SCH (00:45)
[2018-07-25] MEDS ORDERED: Sodium Chloride 0.45% 1,000 ML IV SCH (00:45)
[2018-07-25] MEDS ORDERED: Clindamycin/D5W 600 MG in Premix Bag 1 BAG IVPB PRN (00:56)
[2018-07-25] MEDS ORDERED: HYDROcodone/Acetaminophen 5/325 mg Tablet PO PRN (00:57)
[2018-07-25] MEDS ORDERED: Morphine 2 MG/ML SYRINGE SLOW IVP PRN (00:57)
[2018-07-25] MEDS: Sodium Chloride 0.9% 1,000 ML IV SCH ×3 (01:50→15:22)
--- NOTE | 2018-07-25 01:59 | HP ---
CHIEF COMPLAINT: Labial infection. PRIMARY CARE PHYSICIAN: Reports None. HISTORY OF PRESENT ILLNESS: Ms. Boyd is a 23-year-old female, with psychiatric history and an infection in the past including paraplegia, multisubstance abuse, tobacco abuse, and ulcer, who presents to the emergency department for labial infection concern. The patient lives alone in the hotel. The patient denies that she has any family. The patient refused to answer further questions. HPI was reviewed and obtained from ER note and medical records at this point. PAST MEDICAL HISTORY: Paraplegia, polysubstance abuse, smoker, osteomyelitis, and noncompliance PAST SURGICAL HISTORY: Spinal fusion hardware, cholecystectomy in 2018, decubitus ulcers status post debridement. ALLERGIES: TO PENICILLIN AND VANCOMYCIN. FAMILY HISTORY: The patient refused. REVIEW OF SYSTEMS: The patient refused. MEDICATIONS: Does not report that she is taking. SOCIAL HISTORY: Declined to answer. PHYSICAL EXAMINATION: VITAL SIGNS: The patient's temperature 99.4, blood pressure 82/50, heart rate 86, saturating well on room air. Besides that the patient refused physical examination. She does not want me to see her. The patient is sleeping in her bed and only answering questions when she wants to, otherwise she will stay sullen and will refuse to answer any of my questions. LABORATORY DATA: WBC 13,000; hemoglobin 11.5; platelets within normal limits. Electrolytes seems to be unremarkable. ASSESSMENT AND PLAN: 1. Labial abscess: Looks like surgery was consulted. The patient refused further treatment from them. It looks like the patient will need antibiotics senior care and then also we will likely drain it in the OR which the patient refused at this point. If the patient is agreeable to surgical consult, we will need surgical reconsult in the morning. I have ordered clindamycin IV. At this point, pain control medications p.r.n. Labs and cultures have been ordered. 2. History of noncompliance. The patient is still not interested in answering any questions. The patient has a history of leaving AMA. It is unclear if the patient has a capacity to make any decisions at this point. Recommend Psychological/Psychiatric consult if possible to determine if pt has capacity to make medical decisions 3. Hypotension. The patient's BP is low. Otherwise, the patient is asymptomatic at this point. We will give IV fluids to patient. The patient was given bolus overnight. Physical Therapy. We will also add lactobacillus at this point. 4. Medical power of social services unknown as the patient is noncooperative. 5. Code status. We will have the patient as full code as she does not want to discuss anything with me 6. Deep venous thrombosis prophylaxis addressed. Job ID: [id number] MTDD
[2018-07-25] MEDS: Clindamycin/D5W 600 MG in Premix Bag 1 BAG IVPB SCH ×3 (03:40→20:13)
[2018-07-25] MEDS ORDERED: Sodium Chloride 0.9% 500 ML IVPB SCH (06:15)
[2018-07-25] MEDS: Enoxaparin Sodium 40 MG/0.4 ML SYRINGE SC SCH (09:55)
[2018-07-25 13:24] VITALS: BMI 18.8
--- NOTE | 2018-07-25 14:54 | PDOC.PN ---
- Subjective Encounter Start Date: 07/25/18 Encounter Start Time: 14:52 Subjective: refuses to talk to me or look at me -: care discussed w RN at bedside. IV ABx to be started soon -: notified that if she refuses,will try PO ABx.Ethics committee consulted - Objective MAR Reviewed: Yes Vital Signs & Weight: Vital Signs (12 hours) Temp Pulse Resp BP Pulse Ox 07/25/18 12:54 97.6 F 90 18 99/63 98 Weight Admit Weight 113 lb 3.2 oz Weight 113 lb 3.2 oz Phys Exam - Physical Examination Constitutional: NAD siiting in WC in bathroom Dx/Plan (1) Labial abscess Code(s): N76.4 - ABSCESS OF VULVA Status: Acute (2) Hypotension Status: Acute (3) Bipolar 1 disorder Code(s): F31.9 - BIPOLAR DISORDER, UNSPECIFIED Status: Chronic Comment: Patient will benefit from inpt psych for intensive evaluation and supervision, currently awaiting [facility] re-evaluation to determine safety of discharge vs need for further supervised care as inpt in psych facility. Started patient on mood stabilizer of Depakote sprinkles however patient refusing. spoke to psychiatrist. Patient is put on respiradone and ativan. - Plan cont IV Abx if pt allows.refusing VS check or labs -: Ethics consult placed to see if pt is competant for medical decision making -: [facility] consulted for possible Psych eval for ? of Acute psychosis.Pt refused -: Will follow * . Review of Systems - Review of Systems Other: unable to obtain due to non cooperation - Medications/Allergies Allergies/Adverse Reactions: Allergies Allergy/AdvReac Type Severity Reaction Status Date / Time Penicillins Allergy Unknown Verified 08/17/17 22:02 Medications: Current Medications Acetaminophen (Tylenol) 650 mg [place] Q4H PRN PRN Reason: Headache/Fever/Mild Pain (1-3) Acetaminophen (Tylenol) 650 mg PO Q6H PRN PRN Reason: Mild Pain (1-3) Hydrocodone Bitart/Acetaminophen ([place] 5/325) 1 tab PO Q6H PRN PRN Reason: Moderate Pain (4-6) Enoxaparin Sodium (Lovenox) 40 mg SC 0900 JOSH Last Admin: 07/25/18 09:55 Dose: Not Given Sodium Chloride (Normal Saline 0.9%) 1,000 mls @ 125 mls/hr IV .Q8H [facility] Stop: 07/26/18 01:01 Last Admin: 07/25/18 09:55 Dose: Not Given Clindamycin Phosphate/Dextrose (600 mg/ Device) 50 mls @ 100 mls/hr IVPB 0400, 1200,2000 [facility] Last Admin: 07/25/18 12:48 Dose: 50 mls Morphine Sulfate (Morphine) 1 mg SLOW IVP Q6H PRN PRN Reason: Severe Pain (7-10) Sodium Chloride (Flush - Normal Saline) 10 ml IVF Q12HR PRN PRN Reason: Saline Flush Sodium Chloride (Flush - Normal Saline) 10 ml IVF PRN PRN PRN Reason: Saline Flush
[2018-07-25 15:40] LABS: Lactic Acid 1.1 mmol/L (0.5-2.2)
[2018-07-25 15:47] LABS: #Eosinphils 0.3 thou/uL (0.0-0.7); #Lymphocytes 2.1 thou/uL (1.20-3.40); #Monocytes 0.7 thou/uL (0.11-0.59); #Neutrophils 7.7 thou/uL (1.40-6.50); %Basophils 0.3 % (0.0-1.0); %Eosinophils 3.2 % (0.0-10.0); %Lymphocytes 19.2 % (21.0-51.0); %Monocytes 6.7 % (0.0-10.0); %Neutrophils 70.7 % (42.0-75.0); ALT (SGPT) 10 U/L (8-55); AST (SGOT) 17 U/L (5-34); Albumin 2.8 g/dL (3.5-5.0); Alkaline Phosphatase 132 U/L (40-150); Anion Gap 12 mmol/L (10-20); Anisocytosis SLIGHT = 6-15 cells (100X) (0-5/hpf); BUN (Urea Nitrogen) 10 mg/dL (7.0-18.7); Bilirubin, Total 0.4 mg/dL (0.2-1.2); CRP (Inflammatory) 13.54 mg/dL (= or < 0.5); Calc. Creatinine Clearance 124 mL/min (70-130); Calcium 8.5 mg/dL (7.8-10.44); Carbon Dioxide 23 mmol/L (22-29); Chloride 105 mmol/L (98-107); Estimated GFR-MDRD Greater than 90; Globulin 3.8 g/dL (2.4-3.5); Glucose 74 mg/dL (70-105); Hemoglobin 9.8 g/dL (12.0-16.0); Hypochromia SLIGHT = 6-15 cells (100X) (0-5/hpf); MDiff Complete? YES; Mean Corpuscular HGB CONC 31.3 g/dL (32.0-36.0); Mean Corpuscular Hemoglobin 25.2 pg (27.0-31.0); Mean Corpuscular Volume 80.6 fL (78.0-98.0); Platelet Count 421 thou/uL (130-400); Platelet Morphology Comment Appears Increased; Potassium 4.1 mmol/L (3.5-5.1); Protein, Total 6.6 g/dL (6.0-8.3); RBC Distribution Width 16.2 % (11.5-14.5); Red Blood Cell (RBC) Count 3.86 mill/uL (4.20-5.40); Sodium 136 mmol/L (136-145); White Blood Cell (WBC) Count 10.9 thou/uL (4.8-10.8)
[2018-07-25 21:04] VITALS: TEMP 98.6
[2018-07-26] MEDS: Sodium Chloride 0.9% 1,000 ML IV SCH (03:06)
[2018-07-26] MEDS: Clindamycin/D5W 600 MG in Premix Bag 1 BAG IVPB SCH (03:42)
[2018-07-26 04:39] VITALS: BP 104/62
[2018-07-26] MEDS: Enoxaparin Sodium 40 MG/0.4 ML SYRINGE SC SCH (11:14)
--- NOTE | 2018-07-27 18:28 | DIS ---
DATE OF ADMISSION: 07/24/2018 DATE OF DISCHARGE: 07/26/2018 DISCHARGE DISPOSITION: The patient signed out against medical advice. PRIMARY DISCHARGE DIAGNOSES: Suspected labial abscess, chronic sacral decubitus, paraplegia, history of bipolar disorder. PROCEDURES DONE DURING HOSPITALIZATION: Blood cultures x2, no growth. White count of 13, on admission. Discharge H and H 10 and 31, platelet count 421. Discharge white count of 10, BUN 10, creatinine 0.5. CRP was 13. Albumin is 2.8. DISCHARGE MEDICATION: The patient to continue all her home medication as before. BRIEF COURSE DURING HOSPITALIZATION: The patient initially came to emergency room for concerns about infection in her private area. She wanted antibiotics. The patient would not let any physician examine her. Dr. Garcia evaluated her in the ER, but the patient refused to be examined. She had large chronic left decubitus ulcer and also suspected labial abscess. Per Dr. Garcia's evaluation, the patient had multiple decubitus ulcers on her legs and feet, which have all healed. Her left labia was erythematous, indurated, swollen, and boggy posteriorly. There was pinpoint opening with draining pus. This did not clinically appear to be connected to her ischial decubitus ulcer. Again, she refused to be examined by Dr. Garcia. The patient had refused physical examination by the admitting physician, Dr. Emmanuel Moreno, as well. The patient did not want to be examined by me the day she signed out. The patient did not want to be examined on the day she signed out against medical advice by me. Ethics consult was placed due to possible underlying patient's psychiatric illness. She did not want to be transferred to another hospital or seen by another surgeon. The patient finally did not want to stay in the hospital and signed out against advice. She was on IV antibiotics all through her stay here. Please note, the patient refused to be examined by me on the day of discharge. Job ID: [id number]
--- NOTE | 2018-07-29 12:31 | PQF ---
[facility] [employer] Lolis,SESAR MG, BEATRIZ HART MD [phone] [id number] CLINICAL DOCUMENTATION CLARIFICATION FORM: POST DISCHARGE Addendum to original discharge summary date: ____ Late entry note date: __ Please exercise your independent, professional judgment in responding to the clarification form. Clinical indicators are provided on the bottom of this form for your review Please check appropriate box(s): [ ] Pressure Ulcer: (Stage I: Erythema; Stage II: Partial thickness; Stage III : Full thickness; Stage IV: Necrosis to muscle/bone) [ ] Location: SACRUM POA: [ ] Yes [ ] No[ ] Unable to determine Stage (I to IV): (Left Right Bilateral N/A ) [ ] Location: L BUTTOCK POA: [ ] Yes [ ] No[ ] Unable to determine Stage (I to IV): (Left Right Bilateral N/A ) [ ] Gangrene present [ ] Yes [ ] ischemic gangrene [ ] gas gangrene [ ] No [ ] No pressure ulcer diagnosis [ ] Deep tissue injury [ x ] Other diagnosis __Patient never allowed me or admitting physician or nurses to examine her [ ] Unable to determine In addition, please specify: Present on Admission (POA): [ ] Yes [ ] No [ ] Unable to determine For continuity of documentation, please document condition throughout progress notes and discharge summary. Thank You. CLINICAL INDICATORS - SIGNS / SYMPTOMS / LABS CHRONIC SACRAL DECUBITIS- D/S PU L BUTTOCK STAGE 4- NURSING NOTES RISK FACTORS: PARAPLEGIA- H&P, D/S TREATMENTS: PLACED ON IV CLINDAMYCIN- H&P, D/S [facility] [employer] Win[employer] Viewer (This form is maintained as a part of the permanent medical record) 2014 [employer]. All Rights Reserved [email or web address] [phone] MTDD
== END 2018-07-26 09:20 | disposition left against medical advice (07) | DRG 758 ==
LOC: ERS 18:38 → T4-A 19:01
PROVIDERS: ADMIT Emergency Medicine; ATTEND Emergency Medicine
DX: N76.4 Abscess of vulva (principal); G82.20 Paraplegia, unspecified; L89.159 Pressure ulcer of sacral region, unspecified stage; F19.10 Other psychoactive substance abuse, uncomplicated; F17.210 Nicotine dependence, cigarettes, uncomplicated; I95.9 Hypotension, unspecified; Z91.19 Patient's noncompliance with other medical treatment and regimen; F31.9 Bipolar disorder, unspecified; Z88.0 Allergy status to penicillin
CPT/HCPCS: 36415; 80053; 83605; 85025; 86140; 87040; 96365; 96374; 96375; J1200; J1630; J1650; J3370; J3490; J7050

== ENCOUNTER 2019-04-23 19:32 | Emergency (ER) | payer MEDICARE, MEDICAID ==
[2019-04-23 20:41] LABS: Bilirubin Small (Negative); Blood, Urine Negative (Negative); Clarity Hazy (Clear); Glucose, Urine (Dipstick) Negative (Negative); Leukocyte Negative (Negative); Nitrite Negative (Negative); Protein, Urine (Dipstick) 30 mg/dL (Neg-Trace)
[2019-04-23 20:42] LABS: Bacteria/HPF Rare-Few HPF (None Seen); RBC/HPF None Seen HPF (0-3); WBC/HPF None Seen HPF (0-3)
[2019-04-23] MEDS ORDERED: Ondansetron PF 4 MG/2 ML Vial ONE (21:20)
[2019-04-23] MEDS ORDERED: Haloperidol Lactate 5 MG/ML VIAL ONE (22:27)
[2019-04-23 22:55] LABS: #Lymphocytes 0.9 thou/uL (1.20-3.40); #Monocytes 0.4 thou/uL (0.11-0.59); #Neutrophils 5.7 thou/uL (1.40-6.50); %Basophils 0.6 % (0.0-1.0); %Eosinophils 0.1 % (0.0-10.0); %Lymphocytes 13.2 % (21.0-51.0); %Neutrophils 81.1 % (42.0-75.0); Hemoglobin 10.9 g/dL (12.0-16.0); Mean Corpuscular HGB CONC 31.8 g/dL (32.0-36.0); Mean Corpuscular Hemoglobin 27.7 pg (27.0-31.0); Mean Platelet Volume 4.2 fL (7.4-10.4); Platelet Count 237 thou/uL (130-400); RBC Distribution Width 14.4 % (11.5-14.5); Red Blood Cell (RBC) Count 3.94 mill/uL (4.20-5.40)
--- NOTE | 2019-04-23 23:06 | RAD ---
Exam: Single view of the chest and 2 views of the abdomen HISTORY: Altered mental status; nausea and vomiting. Osteomyelitis from a decubitus ulcer. COMPARISON: None FINDINGS: 2 views of the abdomen and a single view the chest shows a nonspecific, nonobstructive osmany l gas pattern. Air is seen to the level of the rectum. No free air or air-fluid levels are seen and upright examination. Hardware is seen in the spine. The left proximal femur is not definitely visuali zed. The cardiomediastinal silhouette is normal in size. There is no evidence of consolidation, mass, or p leural effusion. IMPRESSION: Nonobstructive bowel gas pattern
[2019-04-23 23:13] LABS: ALT (SGPT) 19 U/L (8-55); AST (SGOT) 18 U/L (5-34); Albumin 3.1 g/dL (3.5-5.0); Alkaline Phosphatase 80 U/L (40-110); Anion Gap 10 mmol/L (10-20); BUN (Urea Nitrogen) 5 mg/dL (7.0-18.7); Bilirubin, Total 0.2 mg/dL (0.2-1.2); Calc. Creatinine Clearance 0 mL/min (70-130); Calcium 8.3 mg/dL (7.8-10.44); Carbon Dioxide 29 mmol/L (22-29); Chloride 104 mmol/L (98-107); Estimated GFR-MDRD Greater than 90; Glucose 119 mg/dL (70-105); Potassium 4.3 mmol/L (3.5-5.1); Protein, Total 6.1 g/dL (6.0-8.3); Sodium 139 mmol/L (136-145)
[2019-04-23 23:56] LABS: Phencyclidine (PCP) Not Detected (NotDetected); THC/Cannabinoid Screen Detected (NotDetected)
[2019-04-23 23:57] LABS: Amphetamine Detected (NotDetected); Barbiturates Screen Not Detected (NotDetected); Benzodiazepine Screen Detected (NotDetected); Cocaine Metabolite Screen Not Detected (NotDetected); Methadone Not Detected (NotDetected); Methamphetamine Detected (NotDetected); Opiate Screen Detected (NotDetected); Oxycodone Screen Not Detected (NotDetected); Tricyclic Screen Not Detected (NotDetected)
[2019-04-23 23:58] LABS: Medtox Control Line Valid? VALID (VALID)
[2019-04-24] MEDS ORDERED: Bacitracin 1 PK ONE (00:10)
== END 2019-04-24 00:30 | disposition home or self-care (01) ==
LOC: SCSER 19:32
DX: E86.0 Dehydration (principal); R11.2 Nausea with vomiting, unspecified; F31.9 Bipolar disorder, unspecified; F41.9 Anxiety disorder, unspecified; F17.210 Nicotine dependence, cigarettes, uncomplicated; Z79.899 Other long term (current) drug therapy
CPT/HCPCS: 36415; 74022; 80053; 80306; 81003; 81015; 83605; 85025; 96361; 96374; 96375; J1630; J2405

== ENCOUNTER 2019-05-05 20:19 | Emergency (ER) | payer MEDICARE, MEDICAID ==
[2019-05-05] MEDS ORDERED: Morphine 4 MG/ML VIAL ONE (22:21)
== END 2019-05-05 22:27 | disposition home or self-care (01) ==
LOC: ERS 20:19
DX: T84.89XA Other specified complication of internal orthopedic prosthetic devices, implants and grafts, initial encounter (principal); L89.229 Pressure ulcer of left hip, unspecified stage; L89.324 Pressure ulcer of left buttock, stage 4; F41.9 Anxiety disorder, unspecified; F31.9 Bipolar disorder, unspecified; F17.210 Nicotine dependence, cigarettes, uncomplicated
CPT/HCPCS: 96372; 99283; J2270

== ENCOUNTER 2019-05-08 12:40 | Outpatient (CLI) | payer MEDICARE, MEDICAID ==
--- NOTE | 2019-05-08 13:34 | CT ---
CT THORACIC SPINE WITHOUT CONTRAST: HISTORY: Previous T12 burst fracture. Interval fusion. FINDINGS: Mediastinum: No mass, lymphadenopathy or hematoma. Trachea and central bronchi: Patent. No masses or consolidations of the visualized lung parenchyma. N o pleural effusion. Upper abdomen: No solid organ abnormality. Redemonstration of a burst fracture with retropulsion at T12. There is stable loss of vertebral body height. The previously noted fracture fragment in the central spinal canal is no longer evident. There has been interval posterior laminectomy defect at the T12-L1 and L1-L2 disc space. Interval lima cement of bilateral transpedicular screws at T9, T10, T11 and L1. The right T12 vertebral body screw is outside of the vertebral body. The left L1 transpedicular screw is also outside the vertebra l body. The right screw at L1 does cross the anterior right aspect of the central spinal canal. No acute fractures of the thoracic spine. Limited evaluation of the contents of the central spinal canal and neural foramina due to technique. With the exception of the region of fusion, there is no significant central canal stenosis or significant neural foraminal narrowing. Limited evaluation at the level of fusion due to beam attenua tion artifact. IMPRESSION: 1. Interval internal fixation with bilateral transpedicular screws from T9 through L1. Screw placemen t as described above. 2. Interval removal of a vertebral body fragment that was in the central spinal canal. Transcribed Date/Time: 05/08/2019 1:46 PM
--- NOTE | 2019-05-08 14:27 | CT ---
LUMBAR SPINE CT WITHOUT CONTRAST: HISTORY: Low back pain. Previous burst fracture at T12. COMPARISON: 03/19/2013. FINDINGS: Visualized solid organs and paraspinal muscles are grossly unremarkable for acute abnormality. There is atrophy of the bilateral psoas muscles as well as paraspinal muscles (right side atrophy greater than left). Bilateral transpedicular screws at T11, L1, L2 and L3. The left transpedicular screw at L3 has periha rdware lucency. The right transpedicular screw at L3 does not enter the vertebral body. The distal tip is noted in the right aspect of the central spinal canal. No acute lumbar spine fractures. 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 Limited evaluation of the contents of the spinal canal due to technique. Throughout the lumbar spine: No high-grade central canal stenosis. IMPRESSION: Lumbar fusion as above. Transcribed Date/Time: 05/08/2019 2:31 PM
== END 2019-05-08 12:41 | disposition home or self-care (01) ==
LOC: TBSIIMAG 12:40
PROVIDERS: ATTEND Neurological Surgery
DX: S22.082 Unstable burst fracture of T11-T12 vertebra (principal); T85.698A Other mechanical complication of other specified internal prosthetic devices, implants and grafts, initial encounter; M54.9 Dorsalgia, unspecified; Z98.1 Arthrodesis status
CPT/HCPCS: 72128; 72131